=== PATIENT | female | born 1960 | race Caucasian/White ===

== ENCOUNTER 2020-07-25 13:30 | Outpatient (REF) | payer MEDICAID, SELFPAY ==
--- NOTE | 2020-07-25 | MM_ITS ---
EXAMINATION: MM DIAGNOSTIC DIGITAL BREAST TOMOSYNTHESIS, BILATERAL CLINICAL INFORMATION: Right breast calcifications. Screening left breast The lifetime risk of breast cancer based on the Tyrer-Cuzick Model is 4.8%. COMPARISON: Mammography: and studies dating back to 08/05/2012 TECHNIQUE: Digital breast tomosynthesis is performed in both the craniocaudal and mediolateral oblique views along with computer-aided detection (CAD). Synthesized 2D images are generated from the tomosynthesis. Right breast spot magnification films performed in craniocaudal and 90 degree mediolateral views. FINDINGS: There are scattered areas of fibroglandular density (ACR BI-RADS breast composition Category b). There is stable appearance of the left breast with no new suspicious grouping of microcalcifications or abnormal dominant mass. Within the central aspect of the right breast approximately 9 cm from nipple, there has been an increase in calcifications which appear to be in a linear configuration and may lie within a duct. Stereotactic core biopsy is recommended. Results are discussed with the patient at time of visit. MM/MM tomosynthesis diagnostic BI IMPRESSION: Right breast calcifications for which biopsy is recommended. ASSESSMENT: BI-RADS 4: Suspicious RECOMMENDATION: Right breast stereotactic core biopsy. Nurse navigator called patient's provider. This patient's information was entered into a reminder system with a target due date for their next mammogram.
== END 2020-07-25 13:31 | disposition home or self-care (01) ==
LOC: HO.MAMMO 13:30
PROVIDERS: Visit Provider Nurse Practitioner Family
DX: R92.1 Mammographic calcification found on diagnostic imaging of breast (principal); Z00.00 Encounter for general adult medical examination without abnormal findings
CPT/HCPCS: 77062; 77066

== ENCOUNTER → 2020-07-26 15:10 | Outpatient (BNVA) | payer MEDICAID, SELFPAY | PROVIDERS: PCP Internal Medicine; Visit Provider Surgery | DX: R92.8 Other abnormal and inconclusive findings on diagnostic imaging of breast (principal) | CPT/HCPCS: 99202 ==

== ENCOUNTER 2020-07-28 08:02 | Outpatient (REF) | payer MEDICAID, SELFPAY ==
--- NOTE | 2020-07-28 08:07 | MM_ITS ---
EXAMINATION: STEREOTACTIC TOMOSYNTHESIS-GUIDED VACUUM-ASSISTED BREAST BIOPSY, RIGHT SPECIMEN RADIOGRAPH, RIGHT POST PROCEDURE DIGITAL MAMMOGRAM, RIGHT CLINICAL INFORMATION: Indeterminate calcifications in a linear pattern not definitely within a vessel central right breast. COMPARISON: July 25, 2020 and studies dating back to May 18, 2010. TECHNIQUE/PROCEDURE: Informed consent was obtained from the patient after discussion of the benefits, risks, and alternatives to biopsy today. Patient appeared to understand. Gave opportunity for questions. Patient signed consent form. BIOPSY TABLE: LEHR Affirm Prone Biopsy System. LESION: Calcifications. LOCAL ANESTHESIA: 10 mL 1% lidocaine; 20 mL 1% lidocaine with epinephrine. DERMATOTOMY: Single skin andrews dermatotomy performed. NEEDLE: [employer] Eviva 9-gauge vacuum assisted core biopsy device. APPROACH: Superior. TARGETING: Digital breast tomosynthesis used for targeting. CORES: 16. CLIP: [employer] SecurMark T-shaped marker. SPECIMEN RADIOGRAPH: Specimen radiograph is taken in separate room using digital mammography. The index calcifications are in the excised cores. POST PROCEDURE UNILATERAL DIGITAL MAMMOGRAM: The post biopsy mammogram is performed in separate room using separate digital mammography equipment from the biopsy procedure. 2 views obtained. There are scattered areas of fibroglandular density (breast composition category: b). The clip marker is in position. The calcifications are markedly decreased at the biopsy site. Small hematoma. The patient tolerated the procedure well. No immediate complications. Home instructions reviewed with the patient. Final pathology results are pending. MM/MM stereotactic biopsy RT IMPRESSION: 1. Digital tomosynthesis-guided core biopsy right breast with clip placement. 2. Specimen radiograph taken and post procedure mammogram. There is satisfactory positioning of the biopsy clip. 3. Final pathology results pending. An addendum report will be issued.
== END 2020-07-28 08:03 | disposition home or self-care (01) ==
LOC: HO.MAMMO 08:02
PROVIDERS: Visit Provider Surgery
DX: R92.8 Other abnormal and inconclusive findings on diagnostic imaging of breast (principal); R92.1 Mammographic calcification found on diagnostic imaging of breast
CPT/HCPCS: 19081; 88305; A4648

== ENCOUNTER → 2020-08-03 10:28 | Outpatient (BNVA) | payer MEDICAID, SELFPAY | PROVIDERS: PCP Nurse Practitioner Family; Visit Provider Surgery | DX: R92.8 Other abnormal and inconclusive findings on diagnostic imaging of breast (principal) | CPT/HCPCS: 99212 ==

== ENCOUNTER → 2020-10-17 11:31 | Outpatient (BNVA) | payer MEDICAID, SELFPAY | PROVIDERS: PCP Nurse Practitioner Family; Visit Provider Internal Medicine Pulmonary Disease | DX: I42.9 Cardiomyopathy, unspecified (principal); R06.00 Dyspnea, unspecified; I10 Essential (primary) hypertension; E78.5 Hyperlipidemia, unspecified; G47.33 Obstructive sleep apnea (adult) (pediatric) | CPT/HCPCS: 93005; 99202 ==

== ENCOUNTER 2020-11-23 09:58 | Outpatient (REF) | payer MEDICAID, SELFPAY ==
--- NOTE | 2020-11-23 11:21 | PFT_ITS ---
Forced vital capacity and FEV1 are both moderately decreased, but FEV1/FVC ratio is normal. [id number] is markedly decreased. MVV moderately decreased. Post bronchodilator therapy, there is no significant change. Total lung capacity is slightly decreased. Residual volume normal. Diffusion capacity normal. CONCLUSION: [id number] degree of obstructive airway disorder. Minimal restrictive pulmonary disease. No significant response to bronchodilator therapy. MD JAKE Carter/MODL / [id number]
== END 2020-11-23 09:59 | disposition home or self-care (01) ==
LOC: HO.RESP 09:58
PROVIDERS: PCP Nurse Practitioner Family; Visit Provider Internal Medicine Pulmonary Disease
DX: J44.9 Chronic obstructive pulmonary disease, unspecified (principal)
CPT/HCPCS: 94060; 94727; 94729

== ENCOUNTER → 2020-11-23 13:43 | Outpatient (REF) | payer MEDICAID, SELFPAY ==
--- NOTE | 2020-11-23 13:47 | CA_ITS ---
Transthoracic Echocardiogram Patient (Last, First, Middle): Rosalba Palacios, Gender: Female Date of : 1960 Age: 60 Procedure Date: 11/23/2020 Procedure Type: Transthoracic Echocardiogram Location: OP Height: 154.94 cm Weight: 108.86 kg BSA: 2.04 m2 Heart Rate: bpm BP: 140 / 70 mmHg Standpipe Tender: STEPHANIE Lundberg MD: Toby Tan MD Traffic Sergeant: Arun Johnson MD Symptoms: I42.9 - Cardiomyopathy, unspecified Study Quality: Technically Difficult ECG Rhythm: Sinus Conclusions: - 1. Normal LV systolic function with mild LVH with impaired relaxation filling pattern 2. Possibly mild aortic stenosis 3. Normal RV systolic pressure 4. No pericardial effusion Findings Left Ventricle Normal left ventricular size and systolic function. There is mildly increased left ventricular wall thickness. The visually estimated ejection fraction is between 55-60%. Regional wall motion abnormalities can not be excluded due to suboptimal endocardial definition. Spectral Doppler is indicative of an impaired relaxation filling pattern. Right Ventricle The right ventricle was not well visualized. Atria The left atrium is likely dilated. Interatrial shunt cannot be excluded. The right atrium was not well visualized. Aortic Valve The aortic valve was not well visualized. There is mild aortic valve stenosis. The peak aortic gradient is 18 mmHg.The mean gradient is 11 mmHg. The aortic valve area is 1.94 cm2. There is no aortic valve regurgitation. Mitral Valve There is mild anterior and posterior mitral leaflet thickening. There is mild mitral annular calcification. There is trace mitral valve regurgitation. There is no mitral valve stenosis. Tricuspid Valve The tricuspid valve was not well visualized. There is mild tricuspid valve regurgitation. There is no evidence of pulmonary hypertension. Great Vessels All visible segments of the aorta are normal in size. The pulmonary artery was not well visualized. Venous The inferior vena cava is normal in size and collapses greater than 50% with inspiration. Pericardium/Pleural There is no evidence of pericardial effusion. Prior Study Comparison Changes noted compared to prior study dated: 05/05/2019. LV systolic function appears to improve. Calculated aortic valve area and gradient suggestive of mild aortic stenosis Measurements 2D Linear Measurements IVSd: 1.22 0.6-0.9/0.6-1.0 cm LVIDd: 3.73 3.9-5.3/4.2-5.9 cm LVIDd Index: 1.83 2.4-3.2/2.2-3.1 cm/m2 LVIDs: 2.84 2.0-3.6 cm LVPWd: 1.19 0.7-1.1 cm Ao Root: 3.60 2.1-3.5 cm LA Diam: 3.90 2.7-3.8/3.0-4.0 cm LAIDs Index: 1.91 1.5-2.3 cm/m2 LV Mass: 186.76 67-162/88-224 g LV Mass Index: 91.55 43-95/49-115 g/m2 LVOT Diam: 2.00 3.0+(-)1.3 cm 2D Systolic Function EF 4C: 56.40 >55% EF 2C: 58.60 >55% EF BiP: 58.00 >55% Mitral Valve E'Medial: 7.35 Aortic Valve AoV Pk Nithin: 2.11 AoV Mn Nithin: 1.54 AoV VTI: 0.40 AoV Pk Grad: 18.00 Aov Mn Grad: 11.00 DAVID Cont.VTI: 1.94 LVOT LVOT Pk Nithin: 1.47 LVOT Mn Nithin: 0.97 LVOT VTI: 0.25 LVOT Pk Grad: 9.00 LVOT Mn Grad: 5.00 LVOT Diam: 2.00 LVOT Area: 3.14 Diastolic Function E'Medial: 7.35 Tricuspid Valve TR Pk Nithin: 2.89 TR Pk Grad: 33.00 RA Press: 3.00 RVSP: 36.00 Great Vessels Aorta Ao Root-2D: 3.60 2.0-3.7 cm Ao Asc: 3.60 2.1-3.4 cm Ao Arch: 2.90 Updated in Other Vendor System with Status of Final Arun Johnson MD electronically signed on 11/23/2020 5:43:32 PM with status of Final
== END ==
LOC: HO.CARD 13:43
PROVIDERS: Visit Provider Internal Medicine Cardiovascular Disease
DX: I42.9 Cardiomyopathy, unspecified (principal)
CPT/HCPCS: 93306; Q9957

== ENCOUNTER → 2020-11-24 09:58 | Outpatient (BNVA) | payer MEDICAID, SELFPAY | PROVIDERS: PCP Nurse Practitioner Family; Visit Provider Internal Medicine Pulmonary Disease | DX: J44.9 Chronic obstructive pulmonary disease, unspecified (principal); G47.33 Obstructive sleep apnea (adult) (pediatric); R91.8 Other nonspecific abnormal finding of lung field | CPT/HCPCS: 99212 ==

== ENCOUNTER 2021-02-14 13:31 | Outpatient (REF) | payer MEDICAID, SELFPAY | END 2021-02-14 13:32 | disposition home or self-care (01) | LOC: HO.CT 13:31 | PROVIDERS: Visit Provider Internal Medicine Pulmonary Disease | DX: Z13.89 Encounter for screening for other disorder (principal) ==

== ENCOUNTER 2022-08-28 14:15 | Outpatient (REF) | payer MEDICAID, SELFPAY ==
--- NOTE | ~2022-08-28 | MM_ITS ---
EXAMINATION: MM SCREENING DIGITAL BREAST TOMOSYNTHESIS, BILATERAL CLINICAL INFORMATION: Screening. Asymptomatic. Benign right stereotactic biopsy 07/28/2020 (benign breast tissue with fibroadenomatous change and coarse calcifications). The lifetime risk of breast cancer based on the Tyrer-Cuzick Model is 4%. COMPARISON: Mammography: 07/28/2020, 07/25/2020, 04/28/2019, 04/21/2019 TECHNIQUE: Digital breast tomosynthesis is performed in both the craniocaudal and mediolateral oblique views along with computer-aided detection (CAD). Synthesized 2D images are generated from the tomosynthesis. Additional bilateral CC and additional bilateral MLO views are provided. FINDINGS: There are scattered areas of fibroglandular density (ACR BI-RADS breast composition Category b). Parenchymal pattern is similar to prior studies. There is no developing density or architectural abnormality. No abnormal calcifications. There is biopsy clip marker again noted central right breast mid depth. The axilla and skin contours are unremarkable. No significant changes. MM/MM tomosynthesis screening BI IMPRESSION: No mammographic evidence of malignancy. ASSESSMENT: BI-RADS 2: Benign RECOMMENDATION: Routine annual mammography screening. This patient's information was entered into a reminder system with a target due date for their next mammogram.
== END 2022-08-28 14:16 | disposition home or self-care (01) ==
LOC: HO.MAMMO 14:15
PROVIDERS: Visit Provider Nurse Practitioner Primary Care
DX: Z12.31 Encounter for screening mammogram for malignant neoplasm of breast (principal)
CPT/HCPCS: 77063; 77067

== ENCOUNTER → 2022-09-25 13:53 | Outpatient (BNVA) | payer MEDICAID, SELFPAY | PROVIDERS: PCP Nurse Practitioner Primary Care; Referring Provider Nurse Practitioner Primary Care; Visit Provider Nurse Practitioner Family | DX: I42.9 Cardiomyopathy, unspecified (principal); I10 Essential (primary) hypertension; I35.0 Nonrheumatic aortic (valve) stenosis; I44.7 Left bundle-branch block, unspecified; G47.33 Obstructive sleep apnea (adult) (pediatric); Z79.899 Other long term (current) drug therapy | CPT/HCPCS: 93005; 99212 ==

== ENCOUNTER → 2022-10-02 12:11 | Outpatient (REF) | payer MEDICAID, SELFPAY ==
[2022-10-02 13:01] LABS: B Type Natriuretic Peptide 18 pg/mL (<100)
[2022-10-02 13:27] LABS: Alanine Aminotransferase 13 U/L (0-31); Albumin Level 3.9 g/dL (3.5-5.0); Alkaline Phosphatase 83 U/L (39-117); Anion Gap 15 (12-20); Aspartate Amino Transferase 18 U/L (5-31); Bilirubin Total 0.3 mg/dL (0.0-1.0); Blood Urea Nitrogen 12 mg/dL (9-16); Calcium 9.4 mg/dL (8.4-10.2); Carbon Dioxide 31 mmol/L (22-29); Chloride 104 mmol/L (96-108); Cholesterol 180 mg/dL; Estimated Glomerular Filt Rate > 60; Glucose Random 120 mg/dL (60-115); HDL Cholesterol 55 mg/dL; LDL Cholesterol Calculated 106 mg/dl; Potassium 4.6 mmol/L (3.3-5.1); Sodium 145 mmol/L (135-145); Total Protein 6.5 g/dL (6.5-8.0); Triglycerides 99 mg/dL
--- NOTE | 2022-10-02 14:40 | CA_ITS ---
Transthoracic Echocardiogram Patient (Last, First, Middle): Rosalba Palacios, Gender: Female Date of : 1960 Age: 62 Procedure Date: 10/02/2022 Procedure Type: Transthoracic Echocardiogram Location: OP Height: 154.94 cm Weight: 117.94 kg BSA: 2.11 m2 Heart Rate: bpm BP: 144 / 80 mmHg Cable Assembler And Swager: VH Referring MD: Clarisa Rae APPEALS OFFICERCordellC Symptoms: I42.9 - Cardiomyopathy, unspecified Study Quality: Fair ECG Rhythm: Sinus, LBBB Conclusions: - The left ventricular systolic function is normal. The calculated ejection fraction is 58% by biplane method. - There is moderately increased left ventricular wall thickness. - There is mild aortic valve stenosis. Findings Procedure Information Contrast agent, definity, is being given per protocol without apparent complications. Left Ventricle Normal left ventricular cavity size. There is moderately increased left ventricular wall thickness. The left ventricular systolic function is normal. The calculated ejection fraction is 58% by biplane method. There is no evidence of regional wall motion abnormalities. There is paradoxical septal motion consistent with a left bundle branch block. E/E prime ratio is between 8 and 15 consistent with indeterminate filling pressures. Evidence suggests grade I (mild) diastolic dysfunction. Right Ventricle Normal right ventricular cavity size and systolic function. Atria Both atria are normal in size. Aortic Valve The aortic valve was not well visualized. There is mild aortic valve stenosis. The mean gradient is 10 mmHg. The aortic valve area is 1.61 cm2. There is no aortic valve regurgitation. Mitral Valve The mitral valve appears normal. There is no mitral valve regurgitation. There is no mitral valve stenosis. Pulmonic Valve The pulmonic valve is likely normal. Tricuspid Valve Normal tricuspid valve structure. There is mild tricuspid valve regurgitation. Mild pulmonary hypertension is present. Great Vessels The asc aorta is normal in size. Venous The inferior vena cava is mildly dilated and collapses greater than 50% with inspiration. Pericardium/Pleural There is no evidence of pericardial effusion. Prior Study Comparison No significant change compared to prior study dated: 11/23/2020. Measurements 2D Linear Measurements IVSd: 1.73 0.6-0.9/0.6-1.0 cm LVIDd: 4.29 3.9-5.3/4.2-5.9 cm LVIDd Index: 2.03 2.4-3.2/2.2-3.1 cm/m2 LVIDs: 3.21 2.0-3.6 cm LVPWd: 1.47 0.7-1.1 cm Ao Root: 3.50 2.1-3.5 cm LA Diam: 3.80 2.7-3.8/3.0-4.0 cm LAIDs Index: 1.80 1.5-2.3 cm/m2 LV Mass: 354.89 67-162/88-224 g LV Mass Index: 168.19 43-95/49-115 g/m2 LVOT Diam: 2.00 3.0+(-)1.3 cm 2D Systolic Function EF 4C: 57.50 >55% EF 2C: 57.90 >55% EF BiP: 58.30 >55% Mitral Valve MV Pk E: 0.66 MV PK A: 1.30 MV Decel Time: 118.00 E/A: 0.50 E'Lateral: 6.09 E'Medial: 5.11 E/E' Med: 12.90 E/E' Lat: 10.80 PHT: 34.00 MVA PHT: 6.47 Decel Dubois: 5.60 Aortic Valve AoV Pk Nithin: 2.21 AoV Mn Nithin: 1.45 AoV VTI: 0.46 AoV Pk Grad: 20.00 Aov Mn Grad: 10.00 DAVID Cont.VTI: 1.61 LVOT LVOT Pk Nithin: 1.17 LVOT Mn Nithin: 0.84 LVOT VTI: 0.24 LVOT Pk Grad: 5.00 LVOT Mn Grad: 3.00 LVOT Diam: 2.00 LVOT Area: 3.14 Diastolic Function MV Pk E: 0.66 MV Pk A: 1.30 E/A: 0.50 E'Medial: 5.11 E/E' Med: 12.90 E' Laterial: 6.09 E/E' Lat: 10.80 Right Ventricle TAPSE (mm): 33.00 TVS' Nithin: 15.00 Tricuspid Valve TR Pk Nithin: 2.78 TR Pk Grad: 31.00 RA Press: 8.00 RVSP: 39.00 Great Vessels Aorta Ao Root-2D: 3.50 2.0-3.7 cm Ao Asc: 3.70 2.1-3.4 cm Pulmonary Valve PV Pk Nithin: 1.06 Peak PV Grad: 4.00 Updated in Other Vendor System with Status of Final Jarett Dia MD electronically signed on 10/02/2022 4:58:35 PM with status of Final
== END ==
LOC: HO.CARD 12:11
PROVIDERS: PCP Nurse Practitioner Primary Care; Visit Provider Nurse Practitioner Family
DX: I35.0 Nonrheumatic aortic (valve) stenosis (principal); I42.9 Cardiomyopathy, unspecified
CPT/HCPCS: 36415; 80053; 80061; 83880; 93306; Q9957

== ENCOUNTER → 2022-11-28 14:29 | Outpatient (BNVA) | payer MEDICAID, SELFPAY | PROVIDERS: PCP Nurse Practitioner Primary Care; Referring Provider Nurse Practitioner Primary Care; Visit Provider Internal Medicine Cardiovascular Disease | DX: I10 Essential (primary) hypertension (principal); I44.7 Left bundle-branch block, unspecified; I35.0 Nonrheumatic aortic (valve) stenosis; E66.9 Obesity, unspecified; G47.33 Obstructive sleep apnea (adult) (pediatric); Z68.42 Body mass index [BMI] 45.0-49.9, adult; Z99.89 Dependence on other enabling machines and devices | CPT/HCPCS: 99212 ==

== ENCOUNTER 2023-02-08 13:22 | Outpatient (REF) | payer MEDICAID, SELFPAY ==
--- NOTE | ~2023-02-08 | CT_ITS ---
EXAMINATION: CT CHEST SCREENING CLINICAL INFORMATION: Current smoker. 52 pack year history. COMPARISON: Previous CTA of the chest from September 2016 and chest x-ray May 2018 and abdominal [address] from 2013 TECHNIQUE: Multidetector volumetric CT imaging of the chest is performed without contrast using low dose technique. Additional 2D coronal and sagittal reformatted images and axial 3D maximum intensity projection (MIP) images are generated on the CT workstation. This CT examination was performed using dose optimization techniques as appropriate, variously including the following: *Automated exposure control *Adjustment of mA and/or kV according to patient size (this includes techniques or standardized protocols for targeted exams where dose is matched to indication/reason for exam; i.e. extremities or head) *Use of iterative reconstruction technique DLP: 77 mGy-cm FINDINGS: LUNGS: There is a slightly irregular shaped or spiculated right upper lobe nodule. This abuts the mediastinum. This measures 1.6 x 1.9 cm axial image 95. The lungs are otherwise clear. MEDIASTINUM: 2 cm left thyroid nodule. Slightly enlarged heart. No pericardial effusion. No enlarged hilar or mediastinal lymph nodes. CORONARY ARTERY CALCIFICATION: Mild PLEURA: There is no pleural effusion. No pleural mass or thickening. AXILLA: No lymphadenopathy. UPPER ABDOMEN: Fullness of the left adrenal gland. This is similar to prior exams OSSEOUS STRUCTURES: Degenerative changes of the spine. CT/CT lung screening IMPRESSION: 1.6 x 1.9 cm spiculated right upper lobe nodule suspicious for neoplasm. 2 cm left thyroid nodule. Follow-up thyroid ultrasound recommended. Slightly enlarged heart. ASSESSMENT: Lung-RADS category 4X: Suspicious RECOMMENDATION: PET/CT scan or tissue sampling recommended. Findings will be communicated by the [place] work flow licensed chemical spray technician.
== END 2023-02-08 13:23 | disposition home or self-care (01) ==
LOC: HO.CT 13:22
PROVIDERS: PCP Nurse Practitioner Primary Care; Visit Provider Physician Assistant Medical
DX: Z12.2 Encounter for screening for malignant neoplasm of respiratory organs (principal); F17.210 Nicotine dependence, cigarettes, uncomplicated
CPT/HCPCS: 71271; G0296

== ENCOUNTER 2023-03-01 09:20 | Outpatient (AMB) | payer MEDICAID, SELFPAY ==
--- NOTE | 2023-03-01 09:39 | A.OFFVIS_ITS ---
Intake Vital Signs 03/01/23 10:05 Height 5 ft 1 in Weight 240 lb BMI 45.3 BP 140/80 H Pulse 73 Pulse Oximetry (%) 100 Intake Visit Reasons: Rad 4 Allergies No Known Allergies Allergy (Verified 03/01/23 10:06) Medication List - Last Reconciled 03/01/23 by Danilo Hawk MD albuterol sulfate 90 mcg/actuation (Ventolin HFA) 2 puffs inhalation QID albuterol sulfate mg inhalation Q6H PRN amitriptyline 25 mg PO BEDTIME aspirin (Adult Low Dose Aspirin) 81 mg PO DAILY buprenorphine-naloxone 2-0.5 mg (Suboxone) 3 film buccal DAILY bupropion HCl 300 mg PO QAM cholecalciferol (vitamin D3) 25 mcg PO DAILY divalproex (Depakote) 1,000 mg PO ONCE docusate sodium (Colace) 100 mg PO BID PRN furosemide 40 mg PO DAILY 90 days lisinopril 40 mg PO DAILY loratadine (Allergy Relief (loratadine)) 10 mg PO DAILY montelukast (Singulair) 10 mg PO DAILY naloxone 4 mg/actuation (Narcan) 4 mg intranasal Q3M PRN olanzapine 15 mg PO DAILY pantoprazole 40 mg PO DAILY polyethylene glycol 3350 (Miralax) 17 grams PO DAILY prazosin 4 mg PO BEDTIME sennosides (Senokot) 8.6 mg PO DAILY simvastatin 80 mg PO DAILY umeclidinium-vilanterol 62.5-25 mcg/actuation (Anoro Ellipta) 1 ea inhalation DAILY 30 days varicella-zoster gE-AS01B (PF) 50 mcg/0.5 mL (Shingrix (PF)) IM HPI Rad 4 HPI Details 62-year-old woman smoker part of the lung cancer screening program here at [facility] had her baseline low-dose CT scan of the chest done on 02/08/2023. This was reviewed interpreted by me directly. This CT scan shows a 1.6 x 1.9 cm spiculated right upper lobe pulmonary nodule medially at the apex. Looking back within the system she did have a CT angiogram of the chest in 2017 which does show this nodule but about 1/3 of the size as it currently is. There is also a 2 cm thyroid nodule for which ultrasound was recommended. She did have pulmonary function testing and 11/23/2020 but I cannot few that for some reason. She had an EKG done on 09/25/2022 which shows normal sinus rhythm and a left bundle branch block same as 1 done in 2020. Echocardiogram was done on 10/02/2022 which shows an ejection fraction of 58% and very mild aortic stenosis with mild thickening of the LV. She is obese but denies fevers chills or unintentional weight loss. She denies chest pain cough or hemoptysis. She does report shortness of breath with activity. She can go up a flight of stairs without stopping but has to stop at the top. Other than above, 12 point review of systems was done and documented separately in the office chart with detailed social and family history. REPLACED BY [facility] Medical History Hepatitis C Morbid obesity Nicotine dependence, cigarettes, uncomplicated COURTNEY (obstructive sleep apnea) Substance abuse Varicose veins of both lower extremities Surgical History History of cardiac cath History of delivery History of colonoscopy History of esophagogastroduodenoscopy (EGD) History of right breast biopsy History of tubal ligation Family History Mother History of lung cancer Brother History of lung cancer Social History Alcohol intake: current Alcohol intake frequency: holidays/special occasions only Patient Tobacco Use Status: Current everyday Tobacco user Cigarettes Per Day: 4 Years Smoked: (onset 12yo, x 50yrs, max 3ppd, mostly 1ppd, now 1/4ppd - 50phy) Substance Use Type: Marijuana Physical Exam General: No acute distress HEENT: Moist mucous membranes, normocephalic, pupils equal round and reactive to light. Neck: No thyromegaly, supple, no JVD Lymph: No cervical, supraclavicular, or other lymphadenopathy Chest: No chest wall abnormalities or deformities Heart: Regular rate and rhythm Lungs: Clear to auscultation bilaterally Abdomen: Soft, nontender, normal bowel sounds obese Extremities: No edema, cyanosis, or clubbing. Full range of motion Neuro: Grossly intact, alert and oriented x3, and nonfocal Skin: Warm and dry no rashes Affect: Normal Assessment & Plan Assessment & Plan (1) Right upper lobe pulmonary nodule: Comment: (1.6 x 1.9 cm spiculated RUL nodule on 02/08/23 LDCT) Code(s): R91.1 - Solitary pulmonary nodule Plan: 62-year-old current smoker found to have a suspicious pulmonary nodule that is enlarging in the apex medially of the right upper lobe. I explained her that this is a clinical stage I lung cancer until proven otherwise. I discussed pulmonary nodules in general and how either size, shape, and spinning frame changer time affect her level of suspicion for malignancy. We did discuss the CT scan in detail and with that all means. We discussed the diagnosis, staging, and treatment of lung cancer which he seemed understand. Options for her are at this point needle biopsy versus surgical wedge resection possible lobectomy. After discussing the risks and benefits of each of these options she opted for surgery and will plan on arranging this to happen probably in the month of March. We will get cardiology clearance prior operation and pulmonary function testing is scheduled for 03/07/2023. All questions were answered. (2) Nicotine dependence, cigarettes, uncomplicated: Comment: (current smoker, onset 12yo, x 50yrs, max 3ppd, mostly 1ppd, now 1/4ppd - 50pyh) Code(s): F17.210 - Nicotine dependence, cigarettes, uncomplicated Plan: We spent 5 minutes discussing smoking cessation and she tells me she has been able to cut down from 3 packs per day all the way down to less than half a pack per day. We discussed using lozenges or the gum when she does have the urge for cigarette and try to stop completely prior to her operation. Specifically, we discussed the benefits around surgery with smoking cessation including decreased risk of pneumonia or wound infection. Coding Level of Care Code New Pt Level 5 (73903) Diagnoses Right upper lobe pulmonary nodule R91.1 Nicotine dependence, cigarettes, uncomplicated F17.210 Time Spent (min) 65 Comment Smoking cessation 5 minutes please bill.
[2023-03-01 10:05] VITALS: BP 140/80; PULSE 73; O2SAT 100; BMI 45.3
== END 2023-03-01 10:04 | disposition home or self-care (01) ==
PROVIDERS: PCP Nurse Practitioner Primary Care; Visit Provider Surgery
DX: R91.1 Solitary pulmonary nodule (principal); F17.210 Nicotine dependence, cigarettes, uncomplicated

== ENCOUNTER → 2023-03-01 09:20 | Outpatient (BNVA) | payer MEDICAID, SELFPAY | PROVIDERS: PCP Nurse Practitioner Primary Care; Visit Provider Surgery | DX: R91.1 Solitary pulmonary nodule (principal); F17.210 Nicotine dependence, cigarettes, uncomplicated | CPT/HCPCS: 99202 ==

== ENCOUNTER 2023-03-07 09:05 | Outpatient (REF) | payer MEDICAID, SELFPAY ==
--- NOTE | 2023-03-07 10:10 | PFT_ITS ---
FLOWS: 1. FEV1 75% of predicted at 1.63 L. 2. FVC 69% of predicted at 1.92 L. 3. FEV1 to FVC ratio of 0.85. 4. Positive bronchodilator response. LUNG VOLUMES: 1. Total lung capacity 63% of predicted at 2.94 L. 2. Residual volume 56% of predicted at 1.09 L. 3. Slow vital capacity 68% of predicted at 1.85 L. 4. Expiratory reserve volume 87% of predicted at 0.59 L. 5. Diffusion capacity is normal. IMPRESSION: Moderate restrictive ventilatory defect with positive bronchodilator response. Jesse Bush MD AP/MODL / [id number]
== END 2023-03-07 09:06 | disposition home or self-care (01) ==
LOC: HO.RESP 09:05
PROVIDERS: PCP Nurse Practitioner Primary Care; Visit Provider Surgery
DX: R91.1 Solitary pulmonary nodule (principal)
CPT/HCPCS: 94010; 94727; 94729

== ENCOUNTER → 2023-03-07 10:10 | Outpatient (BNV) | payer MEDICAID, SELFPAY | PROVIDERS: PCP Nurse Practitioner Primary Care; Visit Provider Internal Medicine Pulmonary Disease | DX: R91.8 Other nonspecific abnormal finding of lung field (principal) | CPT/HCPCS: 94060; 94727; 94729 ==

== ENCOUNTER 2023-03-25 08:15 | Outpatient (AMB) | payer MEDICAID, SELFPAY ==
--- NOTE | 2023-03-25 08:48 | A.OFFVIS_ITS ---
Intake Vital Signs 03/25/23 08:49 Height 5 ft 1 in Weight 244 lb 11.41 oz BMI 46.2 BP 138/80 Blood Pressure Location Lt brachial Position Sitting Pulse 81 Intake Visit Reasons: PREOP DR FALL Intake Note: preop DR fall Children'S Lunchroom Supervisor Required: Yes Children'S Lunchroom Supervisor Name: carolyn stauffer [id number] Allergies No Known Allergies Allergy (Verified 03/25/23 09:00) Medication List - Last Reconciled 03/25/23 by LEO Ruiz albuterol sulfate 90 mcg/actuation (Ventolin HFA) 2 puffs inhalation QID albuterol sulfate mg inhalation Q6H PRN amitriptyline 25 mg PO BEDTIME aspirin (Adult Low Dose Aspirin) 81 mg PO DAILY buprenorphine-naloxone 2-0.5 mg (Suboxone) 3 film buccal DAILY buprenorphine-naloxone 8-2 mg (Suboxone) 10 mg sublingual QAM bupropion HCl 300 mg PO QAM cholecalciferol (vitamin D3) 25 mcg PO DAILY divalproex (Depakote) 1,000 mg PO ONCE divalproex ER 1,000 mg PO BEDTIME docusate sodium (Colace) 100 mg PO BID PRN furosemide 40 mg PO DAILY 90 days lisinopril 40 mg PO DAILY loratadine (Allergy Relief (loratadine)) 10 mg PO DAILY melatonin 1 mg PO BEDTIME PRN montelukast (Singulair) 10 mg PO DAILY naloxone 4 mg/actuation (Narcan) 4 mg intranasal Q3M PRN olanzapine 15 mg PO DAILY olanzapine 10 mg PO BEDTIME pantoprazole 40 mg PO DAILY polyethylene glycol 3350 (Miralax) 17 grams PO DAILY prazosin 4 mg PO BEDTIME sennosides (Senokot) 8.6 mg PO DAILY simvastatin 80 mg PO DAILY umeclidinium-vilanterol 62.5-25 mcg/actuation (Anoro Ellipta) 1 ea inhalation DAILY 30 days varicella-zoster gE-AS01B (PF) 50 mcg/0.5 mL (Shingrix (PF)) IM HPI PREOP DR FALL HPI Details Rosalba is a 63-year-old female with past medical history of hypertension, left bundle branch block, prior cardiomyopathy, obstructive sleep apnea who presents for preop clearance for thoracic surgery. Today she reports that she does get pressure across her chest that occurs seemingly randomly. She is vague in description even with the use of a staff interpreter. She will admit to getting the pressure and shortness of breath when she climbs stairs. No concerning heart palpitations, dizziness, presyncope, syncope, PND, orthopnea or edema. Reports much anxiety over the plan for upcoming surgery. Unknown surgery date as of yet, pending cardiac clearance. Takes her meds as directed. [facility] Medical History Hepatitis C Morbid obesity Nicotine dependence, cigarettes, uncomplicated COURTNEY (obstructive sleep apnea) Substance abuse Varicose veins of both lower extremities Surgical History History of cardiac cath History of delivery History of colonoscopy History of esophagogastroduodenoscopy (EGD) History of right breast biopsy History of tubal ligation Family History Mother History of lung cancer Brother History of lung cancer Social History Alcohol intake: current Alcohol intake frequency: holidays/special occasions only Patient Tobacco Use Status: Current everyday Tobacco user Cigarettes Per Day: 4 Years Smoked: (onset 12yo, x 50yrs, max 3ppd, mostly 1ppd, now 1/4ppd - 50phy) Substance Use Type: Marijuana Review of Systems Const All systems reviewed & are unremarkable except as noted in HPI and below ENT Denies dizziness Card Reports chest pain, Denies chest pain at rest, Reports chest pain with activity, Denies rapid heart rate, Denies pedal edema, Denies edema, Denies leg edema, Denies lightheadedness, Denies palpitations, Denies dyspnea, Reports dyspnea on exertion and Denies orthopnea Resp Denies cough, Denies dyspnea and Reports dyspnea on exertion GI Denies hematochezia and Denies change in stool character Musc Denies abnormal gait, Reports limited range of motion, Reports muscle cramps, Denies muscle weakness, Denies numbness, Denies radiating pain into limb, Denies stiffness and Denies tingling Neuro Denies abnormal gait, Denies dizziness, Denies numbness and Denies tingling Endo Denies palpitations Physical Exam Vital Signs: Last Vital Signs Pulse 81 03/25/23 08:49 BP 138/80 03/25/23 08:49 BMI result Body Mass Index 46.2 Const General: cooperative, healthy appearing, comfortable and no acute distress Orientation/consciousness: patient oriented x3 Neck Neck: Yes normal visual inspection Resp Effort & Inspection: normal respiratory effort Auscultation: clear to auscultation bilaterally, no crackles, no rales, no rhonchi and no wheezes Cardio Jugular venous distension: no JVD Rate: regular rate Rhythm: regular rhythm Heart sounds: S1 normal heart sound present, S2 normal heart sound present, no gallops, no murmurs and no rubs Neuro General: patient oriented x3 Extrem General: Yes normal to inspection Psych Appearance: grossly normal Mental Status: mental status grossly normal Speech and movement: Normal speech and movement present Office Procedures EKG Details: Today, read by me, sinus rhythm with 1 PVC, left axis deviation, left bundle branch block, no significant change from prior [id number], Complete Assessment & Plan Assessment & Plan (1) Chest discomfort: Code(s): R07.89 - Other chest pain Plan: Patient does report some chest discomfort described as pressure occurring randomly at rest and with activity. Even with staff interpreter, difficult to get full understanding of this symptom. Echocardiogram done 10/02/2022 showed EF 58%, moderate increase in LV thickness. EKG done today showing sinus rhythm with 1 PVC, left bundle branch block, rate 81, nondiagnostic for ischemia. She has no known history of coronary artery disease. She does have cardiac risk factors of morbid obesity, hypertension, smoking. She is able to climb stairs but says she does get short of breath. Unclear if she can obtain a 4 met workload. She is having chest pressure and has nondiagnostic EKG for ischemia. Will order a pharmacological nuclear stress test to be done this week in order for better cardiovascular risk determination prior to her thoracic surgery. Plan to call her with results. Cardiology office visit in 3-4 months. (2) Left bundle branch block: Code(s): I44.7 - Left bundle-branch block, unspecified Plan: Chronic (3) Essential hypertension: Code(s): I10 - Essential (primary) hypertension Plan: Well controlled at present. No med changes made. (4) Dyspnea on exertion: Code(s): R06.00 - Dyspnea, unspecified Plan: Shortness of breath with activity which could be multifactorial in nature. She is morbidly obese and admits to being sedentary at times. Nuclear stress test to evaluate for ischemia as above. (5) Morbid obesity: Code(s): E66.01 - Morbid (severe) obesity due to excess calories (6) Preop cardiovascular exam: Code(s): Z01.810 - Encounter for preprocedural cardiovascular examination Plan: Preop for thoracic surgery due to suspicious pulmonary nodule in the apex of the right upper lobe. Nuclear stress test has been ordered. Once test results are available preop clearance will be completed. Orders: Orders CA lexiscan stress w gabe Today I42.9 - Cardiomyopathy, unspecified, I44.7 - Left bundle-branch block, unspecified, R07.89 - Other chest pain NM cardiolite stress test Today I42.9 - Cardiomyopathy, unspecified, I44.7 - Left bundle-branch block, unspecified, R07.89 - Other chest pain Coding Level of Care Code Est Pt Level 4 (19695) Diagnoses Chest discomfort R07.89 Left bundle branch block I44.7 Essential hypertension I10 Dyspnea on exertion R06.00 Morbid obesity E66.01 Preop cardiovascular exam Z01.810 CPT Codes EKG - CPT: 46267-[id number], Complete ([id number]) Time Spent (min) 28 Comment Chart review, documentation, interview, assess
[2023-03-25 08:49] VITALS: BP 138/80; PULSE 81; BMI 46.2
== END 2023-03-25 09:25 | disposition home or self-care (01) ==
PROVIDERS: PCP Nurse Practitioner Primary Care; Referring Provider Nurse Practitioner Primary Care; Visit Provider Nurse Practitioner Family
DX: R07.89 Other chest pain (principal); I44.7 Left bundle-branch block, unspecified; I10 Essential (primary) hypertension; R06.00 Dyspnea, unspecified; E66.01 Morbid (severe) obesity due to excess calories; Z01.810 Encounter for preprocedural cardiovascular examination
CPT/HCPCS: 93010; 99214

== ENCOUNTER → 2023-03-25 08:15 | Outpatient (BNVA) | payer MEDICAID, SELFPAY | PROVIDERS: PCP Nurse Practitioner Primary Care; Referring Provider Nurse Practitioner Primary Care; Visit Provider Nurse Practitioner Family | DX: Z01.811 Encounter for preprocedural respiratory examination (principal); R07.89 Other chest pain; R06.00 Dyspnea, unspecified; I44.7 Left bundle-branch block, unspecified; I42.9 Cardiomyopathy, unspecified; I49.1 Atrial premature depolarization; I10 Essential (primary) hypertension; G47.33 Obstructive sleep apnea (adult) (pediatric); E66.01 Morbid (severe) obesity due to excess calories; Z68.42 Body mass index [BMI] 45.0-49.9, adult; Z98.890 Other specified postprocedural states; Z72.0 Tobacco use | CPT/HCPCS: 93005; 99214 ==

== ENCOUNTER → 2023-03-28 08:31 | Outpatient (REF) | payer MEDICAID, SELFPAY ==
--- NOTE | ~2023-03-28 | NM_ITS ---
Myocardial perfusion study Indication: Chest pain to evaluate for myocardial ischemia Technique: The patient was brought in for a Lexiscan perfusion study on 03/28/2023. Patient performed low-level exercise and was injected 0.4 mg of Lexiscan intravenously. Within a minute of injection, 40 mCi of sestamibi was given intravenously. Images were obtained using the SPECT gamma camera interlaced with the gating device. Images were obtained in supine position. Resting perfusion study was performed on 03/29/2023. Patient was administered 40 mCi of sestamibi intravenously at rest. Images were then obtained in supine position. Images obtained with and without CT attenuation. Total DLP 201 mGy-cm. Images were processed with the software and compared side to side in short axis, horizontal long axis and vertical long axis views. Findings: The stress perfusion study showed non attenuated images show mildly reduced uptake in the distal anterior and apical wall of the LV myocardium as well as mildly to moderately reduced uptake in the distal septum. Remainder of the LV myocardium is normally perfused. Attenuated corrected images show mildly reduced uptake in the distal anterior as well as apex of the LV myocardium and moderate to severely reduced uptake in the distal septum. The gated study shows mildly reduced LV systolic function with calculated LVEF of 45%. LV cavity is normal in size. The gated study shows normal systolic wall thickening and contraction of segments. Resting study shows both attenuated as well as non attenuated corrected images show improved uptake in the distal anterior and apical wall of the LV myocardium. The septal uptake is unchanged.. Gating at rest reveals no significant wall motion with ejection fraction at 49%. The findings are consistent with equivocal findings mildly reversible defect in the distal anterior and apical wall which would suggest ischemia in the mid to distal LAD territory with fixed defect in the distal septal region which could represent prior infarct. However this findings could be seen in patient with left bundle branch block. NM/NM cardiolite stress test Impression: 1. Myocardial perfusion imaging study shows [anterior and apical ischemia with fixed distal septal defect could represent prior myocardial infarction. These findings could be seen in patients with left bundle branch block 2. Gated LVEF is 45% 3. Transient ischemic dilatation not present EKG is nondiagnostic for ischemia
--- NOTE | 2023-03-28 08:34 | CA_ITS ---
Acquisition Time: 2023-03-28 09:04:25 Total Exercise Time: 00:02:00 Test Indications: CHEST PAIN Medications: Protocol: LEXISCAN Max HR: 089 BPM 57% of Pred: 156 BPM Max BP: 128/080 mmHG Max Work Load: 1.0 METS Pharmacolgoical stress test with Lexiscan injection wihile sitting and not kicking her legs, withoiut anginal symptoms, without arrhytmias, with normotensive response to injection, with non-diagoistic EKGs. Nuclear images pending. Test reviewed with Dr. Tan. Referred By: Clarisa Rae Overread By: Sabrina Boone
== END ==
LOC: HO.CARD 08:31
PROVIDERS: PCP Student in an Organized Health Care Education/Training Program; Referring Provider Physician Assistant; Visit Provider Internal Medicine Medical Oncology
DX: R07.89 Other chest pain (principal); I44.7 Left bundle-branch block, unspecified; I42.9 Cardiomyopathy, unspecified
CPT/HCPCS: 78452; 93017; A9500; J0280; J2785

== ENCOUNTER → 2023-03-28 08:34 | Outpatient (BNV) | payer MEDICAID, SELFPAY | PROVIDERS: PCP Nurse Practitioner Primary Care; Visit Provider Nurse Practitioner | DX: R07.9 Chest pain, unspecified (principal) | CPT/HCPCS: 78452; 93016; 93018 ==

== ENCOUNTER 2023-04-09 12:56 | Outpatient (AMB) | payer MEDICAID, SELFPAY ==
[2023-04-09 13:28] VITALS: BP 140/90; PULSE 84; BMI 43.7
--- NOTE | 2023-04-09 13:28 | A.OFFVIS_ITS ---
Intake Vital Signs 04/09/23 13:28 Height 5 ft 1 in Weight 231 lb 7.766 oz BMI 43.7 BP 140/90 H Blood Pressure Location Lt brachial Position Sitting Pulse 84 Pulse Source Pulse Oximeter Intake Visit Reasons: 4 mth f/u per KM Intake Note: 4 month f/u Light Armored Reconnaissance Officer Required: Yes Light Armored Reconnaissance Officer Name: carolyn orlando [id number] Allergies No Known Allergies Allergy (Verified 04/09/23 13:36) Medication List - Last Reconciled 04/09/23 by LEO Ruiz albuterol sulfate 90 mcg/actuation (Ventolin HFA) 2 puffs inhalation QID albuterol sulfate mg inhalation Q6H PRN amitriptyline 25 mg PO BEDTIME aspirin (Adult Low Dose Aspirin) 81 mg PO DAILY buprenorphine-naloxone 2-0.5 mg (Suboxone) 3 film buccal DAILY buprenorphine-naloxone 8-2 mg (Suboxone) 10 mg sublingual QAM bupropion HCl 300 mg PO QAM cholecalciferol (vitamin D3) 25 mcg PO DAILY divalproex (Depakote) 1,000 mg PO ONCE divalproex ER 1,000 mg PO BEDTIME docusate sodium (Colace) 100 mg PO BID PRN furosemide 40 mg PO DAILY 90 days lisinopril 40 mg PO DAILY loratadine (Allergy Relief (loratadine)) 10 mg PO DAILY melatonin 1 mg PO BEDTIME PRN montelukast (Singulair) 10 mg PO DAILY naloxone 4 mg/actuation (Narcan) 4 mg intranasal Q3M PRN olanzapine 15 mg PO DAILY olanzapine 10 mg PO BEDTIME pantoprazole 40 mg PO DAILY polyethylene glycol 3350 (Miralax) 17 grams PO DAILY prazosin 4 mg PO BEDTIME sennosides (Senokot) 8.6 mg PO DAILY simvastatin 80 mg PO DAILY umeclidinium-vilanterol 62.5-25 mcg/actuation (Anoro Ellipta) 1 ea inhalation DAILY 30 days varicella-zoster gE-AS01B (PF) 50 mcg/0.5 mL (Shingrix (PF)) IM HPI 4 mth f/u per KM HPI Details Rosalba is a 63-year-old female with past medical history of morbidly obese, hypertension, left bundle branch block, prior cardiomyopathy, obstructive sleep apnea who presents for follow-up after recent nuclear stress test. Today she reports that she has been doing well since her last visit. She continues to get some mild pressure in her chest which is vaguely described even with the use of manager mutual fund. She denies getting chest pains or pressure with normal ADLs. She will get some mild shortness of breath and pressure with stair climbing. She reports recent anxiety due to upcoming surgery and has noted some palpitation. She was given a medicine for anxiety from her PCP. No palpitations, presyncope, syncope, PND, orthopnea or edema. No routine exercise. Takes all meds as directed. [facility] Medical History Hepatitis C Morbid obesity Nicotine dependence, cigarettes, uncomplicated COURTNEY (obstructive sleep apnea) Substance abuse Varicose veins of both lower extremities Surgical History History of cardiac cath History of delivery History of colonoscopy History of esophagogastroduodenoscopy (EGD) History of right breast biopsy History of tubal ligation Family History Mother History of lung cancer Brother History of lung cancer Social History Alcohol intake: current Alcohol intake frequency: holidays/special occasions only Patient Tobacco Use Status: Current everyday Tobacco user Cigarettes Per Day: 4 Years Smoked: (onset 12yo, x 50yrs, max 3ppd, mostly 1ppd, now 1/4ppd - 50phy) Substance Use Type: Marijuana Review of Systems Const All systems reviewed & are unremarkable except as noted in HPI and below ENT Denies dizziness Card Reports chest pain, Denies chest pain at rest, Denies chest pain with activity, Denies rapid heart rate, Denies pedal edema, Denies edema, Denies leg edema, Denies lightheadedness, Denies palpitations, Denies dyspnea, Reports dyspnea on exertion and Denies orthopnea Resp Denies cough, Denies dyspnea and Reports dyspnea on exertion GI Denies hematochezia and Denies change in stool character Musc Denies abnormal gait, Reports limited range of motion, Reports muscle cramps, Denies muscle weakness, Denies numbness, Denies radiating pain into limb, Denies stiffness and Denies tingling Neuro Denies abnormal gait, Denies dizziness, Denies numbness and Denies tingling Endo Denies palpitations Physical Exam Vital Signs: Last Vital Signs Pulse 84 04/09/23 13:28 BP 140/90 H 04/09/23 13:28 BMI result Body Mass Index 43.7 Const General: cooperative, healthy appearing, comfortable and no acute distress Orientation/consciousness: patient oriented x3 Neck Neck: Yes normal visual inspection Resp Effort & Inspection: normal respiratory effort Auscultation: clear to auscultation bilaterally, no crackles, no rales, no rhonchi and no wheezes Cardio Jugular venous distension: no JVD Rate: regular rate Rhythm: regular rhythm Heart sounds: S1 normal heart sound present, S2 normal heart sound present, Murmur heart sound present (Faint systolic) and no rubs Neuro General: patient oriented x3 Extrem General: Yes normal to inspection, No no pedal edema and No calf tenderness Psych Appearance: grossly normal Mental Status: mental status grossly normal Speech and movement: Normal speech and movement present Assessment & Plan Assessment & Plan (1) Chest discomfort: Code(s): R07.89 - Other chest pain Plan: Preop for thoracic surgery. Recent reports of chest pressure occurring randomly at rest and with activity. Even with manager mutual fund, difficult to get full understanding of this symptom. Echocardiogram done 10/02/2022 showed EF 58%, moderate increase in LV thickness, mild aortic stenosis. EKG done on 03/25/2023 showing sinus rhythm with 1 PVC, left bundle branch block, rate 81, nondiagnostic for ischemia. She has history of left bundle branch block, no known history of coronary artery disease or prior SC. She does have cardiac risk factors of morbid obesity, hypertension, smoking. Pharmacological nuclear stress test done on 03/28/2023 showing anterior rate and apical ischemia with fixed septal defect which could represent prior SC, these findings could also be seen in patients with left bundle branch block, EF 45%. She is on aspirin 81 mg daily, simvastatin 80 mg daily. [place] LDL goal less than 70. Continue medical management with cardiac risk factor modification. Has been cleared to proceed with planned thoracic surgery. All the above reviewed with patient and she states understanding. Will obtain limited echo prior to her next visit to reassess EF, wall motion. Cardiology OV in 6 mo, sooner if needed (2) Left bundle branch block: Code(s): I44.7 - Left bundle-branch block, unspecified Plan: Chronic (3) Essential hypertension: Code(s): I10 - Essential (primary) hypertension Plan: Initially elevated, improved on recheck at 132/82. Max blood pressure at time of stress test 128/80. Will continue on current lisinopril. If alternate agent is needed for blood pressure control then consider beta-tabby. She has had reduced EF in the past (4) Dyspnea on exertion: Code(s): R06.00 - Dyspnea, unspecified Plan: Shortness of breath with activity which could be multifactorial in nature. She is morbidly obese and admits to being sedentary at times. Cardiac testing as above. No clinical signs of heart failure on examination (5) Morbid obesity: Code(s): E66.01 - Morbid (severe) obesity due to excess calories (6) Preop cardiovascular exam: Code(s): Z01.810 - Encounter for preprocedural cardiovascular examination Plan: Preop for thoracic surgery due to suspicious pulmonary nodule in the apex of the right upper lobe. Can proceed with intermediate cardiac risk. Aspirin can be held as needed and restarted postprocedure when cleared by surgeon to do so. Call/consult Cardiology if needed. Orders: Orders CA echo transthoracic complete 6 Months I10 - Essential (primary) hypertension, I35.0 - Nonrheumatic aortic (valve) stenosis, I42.9 - Cardiomyopathy, unspecified, I44.7 - Left bundle-branch block, unspecified Coding Level of Care Code Est Pt Level 3 (40857) Diagnoses Chest discomfort R07.89 Left bundle branch block I44.7 Essential hypertension I10 Dyspnea on exertion R06.00 Morbid obesity E66.01 Preop cardiovascular exam Z01.810 Time Spent (min) 26 Comment Chart review, documentation, interview, assess
== END 2023-04-09 13:59 | disposition home or self-care (01) ==
PROVIDERS: PCP Nurse Practitioner Primary Care; Referring Provider Nurse Practitioner Primary Care; Visit Provider Nurse Practitioner Family
DX: R07.89 Other chest pain (principal); I44.7 Left bundle-branch block, unspecified; I10 Essential (primary) hypertension; R06.00 Dyspnea, unspecified; E66.01 Morbid (severe) obesity due to excess calories; Z01.810 Encounter for preprocedural cardiovascular examination
CPT/HCPCS: 99213

== ENCOUNTER → 2023-04-09 12:56 | Outpatient (BNVA) | payer MEDICAID, SELFPAY | PROVIDERS: PCP Nurse Practitioner Primary Care; Referring Provider Nurse Practitioner Primary Care; Visit Provider Nurse Practitioner Family | DX: Z01.810 Encounter for preprocedural cardiovascular examination (principal); I44.7 Left bundle-branch block, unspecified; I10 Essential (primary) hypertension; R06.00 Dyspnea, unspecified; R07.89 Other chest pain; E66.01 Morbid (severe) obesity due to excess calories; Z68.41 Body mass index [BMI] 40.0-44.9, adult | CPT/HCPCS: 99213 ==

== ENCOUNTER → 2023-06-07 08:48 | Outpatient (BNV) | payer MEDICAID, SELFPAY | PROVIDERS: Visit Provider Internal Medicine Medical Oncology | DX: C34.90 Malignant neoplasm of unspecified part of unspecified bronchus or lung (principal) | CPT/HCPCS: 99204; 99213; 99214 ==

== ENCOUNTER 2023-09-16 13:27 | Outpatient (AMB) | payer MEDICAID, SELFPAY ==
--- NOTE | 2023-09-16 13:33 | MHC.OFFVIS ---
Intake Vital Signs 09/16/23 13:38 Height 5 ft 1 in Weight 259 lb BMI 48.9 BP 155/75 H Blood Pressure Location Rt brachial Position Sitting Pulse 102 H Intake Visit Reasons: Lung CA ? port Intake Note: Patient referred by Dr. Seaman for port placement. Undergoing chemo treatment for Lung CA. Patient c/o: feels uncertain about port at this time since chemo txt is completed. Halftone Operator Required: No Accompanied by: Self / Same As Patient Allergies No Known Allergies Allergy (Verified 09/16/23 13:40) HPI HPI Comments History of Present Illness Details Patient is status post right upper lobectomy in April of 2023 for an early stage non-small cell lung cancer. She presents here for further cancer surveillance/follow-up. She was also seen by Oncology for which she underwent chemotherapy for early stage lung cancer. Patient has no new respiratory issues or complaints. She is otherwise doing well [facility] Medical History Hepatitis C Morbid obesity Nicotine dependence, cigarettes, uncomplicated COURTNEY (obstructive sleep apnea) Substance abuse Varicose veins of both lower extremities Surgical History History of cardiac cath History of delivery History of colonoscopy History of esophagogastroduodenoscopy (EGD) History of right breast biopsy History of tubal ligation Family History Mother History of lung cancer Brother History of lung cancer Social History Household Members: Family Alcohol intake: current Alcohol intake frequency: holidays/special occasions only Patient Tobacco Use Status: Current everyday Tobacco user Years Smoked: (onset 12yo, x 50yrs, max 3ppd, mostly 1ppd, now 1/4ppd - 50phy) Substance Use Type: Marijuana service: No Current occupational status: retired Physical Exam Vital Signs: Last Vital Signs Pulse 102 H 09/16/23 13:38 BP 155/75 H 09/16/23 13:38 BMI result Body Mass Index 48.9 Neck Other: No cervical periclavicular adenopathy bilaterally demonstrated. Chest Other: Incisions clean dry and intact. Healed well. Assessment & Plan Assessment & Plan (1) History of lung cancer: Code(s): Z85.118 - Personal history of other malignant neoplasm of bronchus and lung Plan Patient is scheduled per Oncology for follow-up surveillance CT scan. She will see me after the study. All questions answered. Coding Level of Care Code New Pt Level 4 (35236) Diagnoses History of lung cancer Z85.118
[2023-09-16 13:38] VITALS: BP 155/75; PULSE 102; BMI 48.9
== END 2023-09-16 14:03 | disposition home or self-care (01) ==
PROVIDERS: PCP Nurse Practitioner Primary Care; Referring Provider Internal Medicine Medical Oncology; Visit Provider Surgery
DX: Z85.118 Personal history of other malignant neoplasm of bronchus and lung (principal)
CPT/HCPCS: 99204

== ENCOUNTER → 2023-09-16 13:27 | Outpatient (BNVA) | payer MEDICAID, SELFPAY | PROVIDERS: PCP Nurse Practitioner Primary Care; Referring Provider Internal Medicine Medical Oncology; Visit Provider Surgery | DX: C34.90 Malignant neoplasm of unspecified part of unspecified bronchus or lung (principal) | CPT/HCPCS: 99202 ==

== ENCOUNTER → 2023-09-19 14:41 | Outpatient (REF) | payer MEDICAID, SELFPAY ==
--- NOTE | 2023-09-19 14:44 | CA_ITS ---
Transthoracic Echocardiogram Patient (Last, First, Middle): Rosalba Palacios, Gender: Female Date of : 1960 Age: 63 Procedure Date: 09/19/2023 Procedure Type: Transthoracic Echocardiogram Location: OP Height: 154.94 cm Weight: 117.48 kg BSA: 2.11 m2 Heart Rate: 87 bpm BP: 154 / 72 mmHg Choir Member: JERMAINE Referring MD: Clarisa Rae DATA CLERK-C Warehouse Distribution Manager: Arun Johnson MD Symptoms: I42.9 - Cardiomyopathy, unspecified Study Quality: Fair despite contrast ECG Rhythm: Sinus Conclusions: - 1. Technically limited study despite use of contrast agent 2. Normal LV ejection fraction 55-60% with impaired relaxation filling pattern 3. Limited evaluation of cardiac valves Findings Procedure Information Contrast agent, definity, is being given per protocol without apparent complications. The quality of the study was technically difficult. The study quality is limited by patients body habitus and lung artifact. Left Ventricle The left ventricle was not well visualized. Normal left ventricular cavity size. The left ventricular systolic function is normal. The visually estimated ejection fraction is between 55-60%. Regional wall motion abnormalities can not be excluded due to suboptimal endocardial definition. Spectral Doppler is indicative of an impaired relaxation filling pattern. Right Ventricle The right ventricle was not well visualized. Atria The left atrium was not well visualized. Interatrial shunt cannot be excluded. The right atrium was not well visualized. Aortic Valve The aortic valve was not well visualized. There is no aortic valve stenosis. Mitral Valve The mitral valve was not well visualized. There is no mitral valve regurgitation. There is no mitral valve stenosis. Pulmonic Valve The pulmonic valve was not well visualized. Tricuspid Valve The tricuspid valve was not well visualized. Tricuspid regurgitation envelope is inadequate for calculation of right ventricular systolic pressure. Great Vessels The aorta was not well visualized. The pulmonary artery was not well visualized. Venous The inferior vena cava was not well visualized. Pericardium/Pleural The pericardium was not well visualized. Prior Study Comparison No significant change compared to prior study dated: 11/23/2020. aortic stenosis not appreciated on this study. Delay in reporting due to technical issues Measurements 2D Linear Measurements IVSd: 1.63 0.6-0.9/0.6-1.0 cm LVIDd: 5.06 3.9-5.3/4.2-5.9 cm LVIDd Index: 2.40 2.4-3.2/2.2-3.1 cm/m2 LVPWd: 0.89 0.7-1.1 cm LA Diam: 3.80 2.7-3.8/3.0-4.0 cm LAIDs Index: 1.80 1.5-2.3 cm/m2 LV Mass: 317.85 67-162/88-224 g LV Mass Index: 150.64 43-95/49-115 g/m2 LVOT Diam: 2.00 3.0+(-)1.3 cm 2D Systolic Function EF 4C: 56.40 >55% Mitral Valve MV Pk E: 0.66 MV PK A: 1.11 MV Decel Time: 121.00 E/A: 0.60 E'Medial: 5.00 E/E' Med: 13.10 PHT: 35.00 MVA PHT: 6.29 Decel Rice: 5.44 Aortic Valve AoV Pk Nithin: 1.85 AoV Mn Nithin: 1.31 AoV VTI: 0.34 AoV Pk Grad: 14.00 Aov Mn Grad: 8.00 DAVID Cont.VTI: 2.28 LVOT LVOT Pk Nithin: 1.37 LVOT Mn Nithin: 0.97 LVOT VTI: 0.25 LVOT Pk Grad: 8.00 LVOT Mn Grad: 4.00 LVOT Diam: 2.00 LVOT Area: 3.14 Diastolic Function MV Pk E: 0.66 MV Pk A: 1.11 E/A: 0.60 E'Medial: 5.00 E/E' Med: 13.10 Right Ventricle TAPSE (mm): 20.30 TVS' Nithin: 14.80 Great Vessels Aorta Ao Asc: 3.40 2.1-3.4 cm Pulmonary Valve PV Pk Nithin: 1.35 Peak PV Grad: 7.00 Updated in Other Vendor System with Status of Final Arun Johnson MD electronically signed on 09/20/2023 2:13:14 PM with status of Final
== END ==
LOC: HO.CARD 14:41
PROVIDERS: Visit Provider Nurse Practitioner Family
DX: I42.9 Cardiomyopathy, unspecified (principal); I10 Essential (primary) hypertension; I35.0 Nonrheumatic aortic (valve) stenosis
CPT/HCPCS: 93306; Q9957

== ENCOUNTER → 2023-09-19 14:44 | Outpatient (BNV) | payer MEDICAID, SELFPAY | PROVIDERS: Visit Provider Internal Medicine Cardiovascular Disease | DX: I42.9 Cardiomyopathy, unspecified (principal) | CPT/HCPCS: 93306 ==

== ENCOUNTER 2023-10-10 13:40 | Outpatient (AMB) | payer MEDICAID, SELFPAY ==
[2023-10-10 14:06] VITALS: BP 138/82; PULSE 94; BMI 49.5
--- NOTE | 2023-10-10 14:06 | MHC.OFFVIS ---
Intake Vital Signs 10/10/23 14:06 Height 5 ft 1 in Weight 261 lb 14.546 oz BMI 49.5 BP 138/82 Blood Pressure Location Lt brachial Position Sitting Pulse 94 Pulse Source Pulse Oximeter Intake Visit Reasons: 6 month follow up Bottom Turning Lathe Tender Required: Yes Bottom Turning Lathe Tender Language: Guidance Adviser Name: carolyn campbell [id number] Allergies No Known Allergies Allergy (Verified 10/10/23 14:09) Medication List - Last Reconciled 10/10/23 by LEO Ruiz albuterol sulfate 90 mcg/actuation (Ventolin HFA) 2 puffs inhalation QID amitriptyline 25 mg PO BEDTIME aspirin (Adult Low Dose Aspirin) 81 mg PO DAILY buprenorphine-naloxone 2-0.5 mg (Suboxone) 3 film buccal DAILY cholecalciferol (vitamin D3) 25 mcg PO DAILY dexamethasone 4 mg PO BID divalproex (Depakote) 1,000 mg PO ONCE docusate sodium (Colace) 100 mg PO BID PRN folic acid 1 mg PO DAILY furosemide 40 mg PO DIRECTED hydroxyzine pamoate 25 mg PO BID PRN lisinopril 40 mg PO DAILY loratadine (Allergy Relief (loratadine)) 10 mg PO DAILY melatonin 1 mg PO BEDTIME PRN montelukast (Singulair) 10 mg PO DAILY naloxone 4 mg/actuation (Narcan) 4 mg intranasal Q3M PRN olanzapine 15 mg PO DAILY ondansetron 8 mg PO Q8H pantoprazole 40 mg PO DAILY polyethylene glycol 3350 (Miralax) 17 grams PO DAILY prazosin 4 mg PO BEDTIME sennosides (Senokot) 8.6 mg PO DAILY simvastatin 80 mg PO DAILY umeclidinium-vilanterol 62.5-25 mcg/actuation (Anoro Ellipta) 1 ea inhalation DAILY 30 days HPI 6 month follow up HPI Details Rosalba is a 63-year-old female past medical history of morbid obesity, hypertension, left bundle branch block, cardiomyopathy, obstructive sleep apnea, mild aortic stenosis, lung CA with recent thoracic surgery who presents for follow-up. Today she reports she has been doing well since her surgery. She feels she is nearly recovered. She does have some shortness of breath and pressure in her chest with activities like stair climbing which is not new and it is not changing. She does not recall any cardiac complications reported during her recent surgery. No concerning heart palpitations, lightheadedness, presyncope, syncope, PND, orthopnea or edema. She has been doing normal ADLs including housework and Shaunna's. She reports good activity tolerance. Taking meds as directed. Certified language interpreter used. [facility] Medical History Morbid obesity Nicotine dependence, cigarettes, uncomplicated Substance abuse Hepatitis C Varicose veins of both lower extremities COURTNEY (obstructive sleep apnea) Surgical History History of right breast biopsy History of cardiac cath History of esophagogastroduodenoscopy (EGD) History of colonoscopy History of delivery History of tubal ligation Family History Mother History of lung cancer Brother History of lung cancer Social History Household Members: Family Alcohol intake: current Alcohol intake frequency: holidays/special occasions only Patient Tobacco Use Status: Current everyday Tobacco user Years Smoked: (onset 12yo, x 50yrs, max 3ppd, mostly 1ppd, now 1/4ppd - 50phy) Substance Use Type: Marijuana service: No Current occupational status: retired Review of Systems Const All systems reviewed & are unremarkable except as noted in HPI and below ENT Denies dizziness Card Details: Chest pressure with her shortness of breath during activity Denies chest pain at rest, Denies chest pain with activity, Denies rapid heart rate, Denies pedal edema, Denies edema, Denies leg edema, Denies lightheadedness, Denies palpitations, Denies dyspnea, Reports dyspnea on exertion and Denies orthopnea Resp Denies cough, Denies dyspnea and Reports dyspnea on exertion GI Denies hematochezia and Denies change in stool character Musc Denies abnormal gait, Denies limited range of motion, Denies muscle cramps, Denies muscle weakness, Denies numbness, Denies radiating pain into limb, Denies stiffness and Denies tingling Neuro Denies abnormal gait, Denies dizziness, Denies numbness and Denies tingling Endo Denies palpitations Physical Exam Vital Signs: Last Vital Signs Pulse 94 10/10/23 14:06 BP 138/82 10/10/23 14:06 BMI result Body Mass Index 49.5 Const General: cooperative, healthy appearing, comfortable and no acute distress Orientation/consciousness: patient oriented x3 Neck Neck: Yes normal visual inspection and Yes no JVD Resp Effort & Inspection: normal respiratory effort Auscultation: clear to auscultation bilaterally, no rales, no rhonchi and no wheezes Cardio Jugular venous distension: no JVD Rate: regular rate Rhythm: regular rhythm Heart sounds: S1 normal heart sound present, S2 normal heart sound present, no murmurs and no rubs Neuro General: patient oriented x3 Extrem General: Yes normal to inspection Psych Appearance: grossly normal Mental Status: mental status grossly normal Speech and movement: Normal speech and movement present Assessment & Plan Assessment & Plan (1) Chest discomfort: Code(s): R07.89 - Other chest pain Plan: Prior and current reports of shortness of breath and chest pressure occurring randomly at rest and with activity. Echocardiogram done 10/02/2022 showed EF 58%, moderate increase in LV thickness, mild aortic stenosis. EKG done on 03/25/2023 showing sinus rhythm with 1 PVC, left bundle branch block, rate 81, nondiagnostic for ischemia. She has history of left bundle branch block, no known history of coronary artery disease or prior AK. She does have cardiac risk factors of morbid obesity, hypertension, smoking. Pharmacological nuclear stress test done on 03/28/2023 showing anterior rate and apical ischemia with fixed septal defect which could represent prior AK, these findings could also be seen in patients with left bundle branch block, EF 45%. She recently underwent thoracic surgery without any reported cardiac complications. An echocardiogram was done on 09/19/2023 showing EF 55-60%, no aortic stenosis, wall motion abnormality could not be excluded. Her symptom of shortness of breath and chest pressure is not changing. She continues on aspirin 81 mg daily, simvastatin 80 mg daily. [place] LDL goal less than 70. Pulse rate 94 today. Will add a low-dose beta-tabby to see if this improves her symptom. Plan to call her in a few weeks to reassess. Cardiology follow-up in the office 6 months, sooner if needed. (2) Left bundle branch block: Code(s): I44.7 - Left bundle-branch block, unspecified Plan: Chronic (3) Essential hypertension: Code(s): I10 - Essential (primary) hypertension Plan: Mildly elevated, adding metoprolol. (4) Dyspnea on exertion: Code(s): R06.00 - Dyspnea, unspecified Plan: Shortness of breath with activity which could be multifactorial in nature. She is morbidly obese and admits to being sedentary at times. Cardiac testing as above. No clinical signs of heart failure on examination (5) Morbid obesity: Code(s): E66.01 - Morbid (severe) obesity due to excess calories Plan: As above Plan Time spent on chart review, documentation, interview and assessment Medications: New metoprolol succinate ER 25 mg PO DAILY 30 tabs 5RF Coding Level of Care Code Est Pt Level 4 (73897) Diagnoses Chest discomfort R07.89 Left bundle branch block I44.7 Essential hypertension I10 Dyspnea on exertion R06.00 Morbid obesity E66.01 Time Spent (min) 28
== END 2023-10-10 14:41 | disposition home or self-care (01) ==
PROVIDERS: PCP Nurse Practitioner Primary Care; Visit Provider Nurse Practitioner Family
DX: R07.89 Other chest pain (principal); I44.7 Left bundle-branch block, unspecified; I10 Essential (primary) hypertension; R06.00 Dyspnea, unspecified; E66.01 Morbid (severe) obesity due to excess calories
CPT/HCPCS: 99214

== ENCOUNTER → 2023-10-10 13:40 | Outpatient (BNVA) | payer MEDICAID, SELFPAY | PROVIDERS: PCP Nurse Practitioner Primary Care; Visit Provider Nurse Practitioner Family | DX: I44.7 Left bundle-branch block, unspecified (principal); R07.89 Other chest pain; I10 Essential (primary) hypertension; R06.00 Dyspnea, unspecified; E66.01 Morbid (severe) obesity due to excess calories; Z68.42 Body mass index [BMI] 45.0-49.9, adult | CPT/HCPCS: 99212 ==

== ENCOUNTER 2023-11-01 14:07 | Outpatient (REF) | payer MEDICAID, SELFPAY ==
--- NOTE | ~2023-11-01 | XR_ITS ---
EXAMINATION: XR CHEST CLINICAL INFORMATION: Cough and COPD exacerbation COMPARISON: Previous chest x-ray May [address] January 2023 TECHNIQUE: 2 views of the chest were obtained. FINDINGS: The cardiac silhouette is enlarged but stable. The thoracic aorta is slightly tortuous but stable. Hilar and mediastinal contours are otherwise unremarkable. There is minimal subsegmental atelectasis at the right lung base. Lungs are otherwise clear. No pleural effusion or pneumothorax. Degenerative changes of the spine. XR/XR chest 2V IMPRESSION: Stable enlargement of the cardiac silhouette. Minimal subsegmental atelectasis at the right lung base.
== END 2023-11-01 14:08 | disposition home or self-care (01) ==
LOC: HO.HHCX 14:07
PROVIDERS: Visit Provider Nurse Practitioner Primary Care
DX: J44.1 Chronic obstructive pulmonary disease with (acute) exacerbation (principal)
CPT/HCPCS: 71046

== ENCOUNTER 2023-12-24 11:19 | Outpatient (REF) | payer MEDICAID, SELFPAY ==
[2023-12-24 13:27] LABS: MANUAL DIFF FLAG NO
[2023-12-24 13:42] LABS: Basophils Percent Auto 0.6 % (0-2); Eosinophils Absolute Auto 0.1 X10*3/uL (0.0-0.4); Eosinophils Percent Auto 1.1 % (0-4); Hematocrit 43.6 % (37.0-47.0); Hemoglobin 13.9 g/dl (12.0-16.0); Imm Gran Abs Auto 0.02 X10*3/uL (0.00-0.03); Imm Gran Pct Auto 0.3 % (0.0-0.4); Lymphocytes Absolute Auto 1.8 X10*3/uL (1.2-4.9); Lymphocytes Percent Auto 28.5 % (20-40); Mean Corpuscular HGB Conc 31.9 g/dl (31.0-35.0); Mean Corpuscular Hemoglobin 30.2 pg (27.0-33.0); Mean Corpuscular Volume 94.8 fL (80.0-98.0); Mean Platelet Volume 10.9 fL (9.4-12.3); Monocytes Absolute Auto 0.4 X10*3/uL (0.1-1.2); Monocytes Percent Auto 6.4 % (2-11); Neutrophils Percent Auto 63.1 % (45-73); Platelet Count 226 X10*3/uL (160-400); Red Cell Distribution Width 12.9 % (11.0-16.0); White Blood Count 6.4 X10*3/uL (4.8-10.8)
[2023-12-24 14:06] LABS: Alanine Aminotransferase 14 U/L (0-31); Alkaline Phosphatase 89 U/L (39-117); Anion Gap 17 (12-20); Aspartate Amino Transferase 17 U/L (5-31); Bilirubin Direct < 0.2 mg/dL (0.0-0.5); Bilirubin Total 0.2 mg/dL (0.0-1.0); Blood Urea Nitrogen 13 mg/dL (9-16); Carbon Dioxide 29 mmol/L (22-29); Chloride 104 mmol/L (96-108); Estimated Glomerular Filt Rate > 60; Glucose Random 121 mg/dL (60-115); Potassium 3.8 mmol/L (3.3-5.1); Sodium 146 mmol/L (135-145); Total Protein 7.4 g/dL (6.5-8.0)
[2023-12-25 04:04] LABS: HIV AB/AG Nonreactive (Nonreactive); HIV Num 1 0.03 S/CO (0.00-0.99); ~HepC Num1 9.11 S/CO (0.00-0.79); ~Hepatitis C Antibody Reactive (Nonreactive)
[2023-12-27 14:52] LABS: HCV Log PCR <1.18 NOT DETECTED Log IU/mL (NOT DETECTED); HepC Viral Load <15 NOT DETECTED IU/mL (NOT DETECTED)
== END 2023-12-24 11:20 | disposition home or self-care (01) ==
LOC: HO.HHCL 11:19
PROVIDERS: Emergency Medicine; Visit Provider Internal Medicine Medical Oncology
DX: Z11.4 Encounter for screening for human immunodeficiency virus [HIV] (principal); F11.20 Opioid dependence, uncomplicated; Z85.118 Personal history of other malignant neoplasm of bronchus and lung
CPT/HCPCS: 36415; 80053; 80076; 82248; 85025; 86803; 87389; 87522

== ENCOUNTER 2024-01-31 10:00 | Outpatient (REF) | payer MEDICAID, SELFPAY ==
[2024-01-31 11:19] LABS: MANUAL DIFF FLAG NO
[2024-01-31 11:30] LABS: Basophils Percent Auto 0.6 % (0-2); Eosinophils Absolute Auto 0.1 X10*3/uL (0.0-0.4); Eosinophils Percent Auto 1.4 % (0-4); Hematocrit 43.9 % (37.0-47.0); Hemoglobin 14.1 g/dl (12.0-16.0); Imm Gran Abs Auto 0.03 X10*3/uL (0.00-0.03); Imm Gran Pct Auto 0.5 % (0.0-0.4); Lymphocytes Absolute Auto 2.2 X10*3/uL (1.2-4.9); Lymphocytes Percent Auto 34.4 % (20-40); Mean Corpuscular HGB Conc 32.1 g/dl (31.0-35.0); Mean Corpuscular Hemoglobin 29.7 pg (27.0-33.0); Mean Corpuscular Volume 92.6 fL (80.0-98.0); Mean Platelet Volume 10.6 fL (9.4-12.3); Monocytes Absolute Auto 0.6 X10*3/uL (0.1-1.2); Monocytes Percent Auto 9.1 % (2-11); Neutrophils Absolute Auto 3.5 x10*3/uL (2.0-8.3); Platelet Count 219 X10*3/uL (160-400); Red Blood Count 4.74 X10*6/uL (4.20-5.50); Red Cell Distribution Width 13.5 % (11.0-16.0); White Blood Count 6.5 X10*3/uL (4.8-10.8)
[2024-01-31 12:06] LABS: Valproate 46.7 mcg/mL (50.0-100.0)
[2024-01-31 12:11] LABS: Alanine Aminotransferase 21 U/L (0-31); Albumin Level 4.1 g/dL (3.5-5.0); Alkaline Phosphatase 84 U/L (39-117); Anion Gap 15 (12-20); Aspartate Amino Transferase 21 U/L (5-31); Bilirubin Total 0.4 mg/dL (0.0-1.0); Blood Urea Nitrogen 13 mg/dL (9-16); Calcium 9.8 mg/dL (8.4-10.2); Carbon Dioxide 32 mmol/L (22-29); Chloride 102 mmol/L (96-108); Estimated Glomerular Filt Rate > 60; Free T4 (Free Thyroxine) 0.95 ng/dL (0.71-1.85); Glucose Random 115 mg/dL (60-115); Potassium 3.7 mmol/L (3.3-5.1); Sodium 145 mmol/L (135-145); Thyroid Stimulating Hormone 1.16 uIU/mL (0.32-4.0); Total Protein 7.4 g/dL (6.5-8.0)
== END 2024-01-31 10:01 | disposition home or self-care (01) ==
LOC: HO.HHCL 10:00
PROVIDERS: Visit Provider Psychiatry & Neurology Psychiatry
DX: Z79.899 Other long term (current) drug therapy (principal)
CPT/HCPCS: 36415; 80053; 80164; 84439; 84443; 85025

== ENCOUNTER 2024-01-31 13:06 | Outpatient (REF) | payer MEDICAID, SELFPAY ==
[2024-01-31 16:39] LABS: Estimated Average Glucose 134 mg/dL; Hemoglobin A1c % 6.3 % (<6.0)
[2024-01-31 16:54] LABS: TSH reflex Free T4 0.38 uIU/mL (0.32-4.0)
== END 2024-01-31 13:07 | disposition home or self-care (01) ==
LOC: HO.HHCL 13:06
PROVIDERS: Visit Provider Nurse Practitioner Primary Care
DX: E04.2 Nontoxic multinodular goiter (principal); R73.09 Other abnormal glucose
CPT/HCPCS: 36415; 83036; 84443

== ENCOUNTER 2024-02-13 15:05 | Outpatient (REF) | payer MEDICAID, SELFPAY ==
--- NOTE | ~2024-02-13 | CT_ITS ---
EXAMINATION: CT CHEST WITH CONTRAST CLINICAL INFORMATION: Follow-up lung carcinoma COMPARISON: CT scan of lungs on 02/08/2023, CT pulmonary angiogram on 10/16/2016. TECHNIQUE: Multidetector volumetric CT imaging of the chest was obtained after the administration of 65 mL of Omnipaque 350 intravenous contrast without immediate adverse reactions. Axial MIP volume rendering provided. Sagittal and coronal reformatted images were obtained. This CT examination was performed using dose optimization techniques as appropriate, variously including the following: *Automated exposure control *Adjustment of mA and/or kV according to patient size (this includes techniques or standardized protocols for targeted exams where dose is matched to indication/reason for exam; i.e. extremities or head) *Use of iterative reconstruction technique DLP: 293 mGy-cm FINDINGS: LUNGS: There is interval appearance of high density surgical suture line along the medial border of right lung continues with the right pulmonary hilum, crossing over the right mainstem bronchus. There has been interval resection of the spiculated lung tumor at medial border of right upper lobe apical segment. Sagittally oriented surgical suture line is seen along the posterior medial border of right upper lobe apical segment. Just lateral to the right suprahilar high density suture line, a hypoenhancing lesion is seen, measuring 1.5 cm in AP diameter, 0.8 cm in width series 5 image #71. PLEURA: No pleural effusion or pneumothorax is seen. PERICARDIUM: No pericardial effusion is seen. There is moderate multichamber cardiomegaly. MEDIASTINUM AND VANIA: No abnormally enlarged mediastinal or hilar lymph nodes are seen. TRACHEOBRONCHIAL TREE: Trachea and bilateral mainstem bronchi are patent. THORACIC AORTA: The thoracic aorta shows fusiform ectasia in the ascending aorta measuring 3.7 cm in AP and transverse diameter, with focal atherosclerotic calcifications and smoothly patent. CORONARY ARTERY CALCIFICATIONS: Present PULMONARY ARTERIES: The main pulmonary arteries show normal enhancement. CHEST WALL AND LOWER NECK: The subcutaneous and muscular chest wall are intact with no focal lesion. A persistent 2.3 cm hypodense nodule (previously 2 cm) is seen in the left thyroid lobe. BONES: Multilevel anterior and lateral bridging syndesmophytes are present in the thoracic spine. No fracture or dislocation. No focal bone lesion diagnostic of metastatic disease could be seen in the thorax. VISUALIZED UPPER ABDOMEN: There is persistent marked hepatic steatosis, mean attenuation of 16.8 Hounsfield units in spite of intravenous contrast enhancement. There is persistent asymmetric thickening of the left adrenal gland, measuring 2.4 x 1.1 cm in size in the partially visualized portion, mean attenuation of [address]/CT chest w IV con IMPRESSION: 1. Interval resection of medial right upper lobe apical segment lung carcinoma, appearance of high density surgical suture line along the medial border of right lung continues with the right pulmonary hilum, crossing over the right mainstem bronchus. 2. Just lateral to the right suprahilar high density suture line, a hypoenhancing lesion is seen, measuring 1.5 cm in AP diameter, 0.8 cm in width, may represent fibrotic scar. 3. Persistent marked hepatic steatosis. 4. Persistent asymmetric thickening of the left adrenal gland, incompletely visualized, but stable since CT scan on 10/08/2016. 5. Recommend consideration of laboratory evaluation for possible pheochromocytoma and then subsequent evaluation with Adrenal Protocol CT. 6. Persistent 2.3 cm hypodense nodule in the left thyroid lobe. Further evaluation with ultrasound examination of the thyroid gland is again recommended to exclude malignancy. 7. Moderate multichamber cardiomegaly. 8. Persistent fusiform ectasia of the ascending aorta measuring 3.7 cm in AP and transverse diameter. Fleischner guidelines were followed.
[2024-02-13] MEDS: iohexoL 350 MG/ML 75 ML INFUS..BTL 65 ML IV (16:20)
== END 2024-02-13 15:06 | disposition home or self-care (01) ==
LOC: HO.CT 15:05
PROVIDERS: PCP Family Medicine; Visit Provider Internal Medicine Medical Oncology
DX: C34.91 Malignant neoplasm of unspecified part of right bronchus or lung (principal)
CPT/HCPCS: 71260; Q9967

== ENCOUNTER 2024-02-25 12:42 | Outpatient (REF) | payer MEDICAID, SELFPAY ==
--- NOTE | ~2024-02-25 | US_ITS ---
EXAMINATION: US THYROID CLINICAL INFORMATION: Thyroid nodules incidentally seen on chest CT. COMPARISON: CT chest with contrast 02/13/2024. TECHNIQUE: Linear transducer grayscale and color Doppler examination with attention to the region of the thyroid. FINDINGS: SIZE: Measurements of the thyroid lobes and nodules are given in sagittal, anteroposterior and transverse dimensions respectively. Right Thyroid Lobe: 3.6 x 2.0 x 1.5 cm, volume 5.6 mL. Parenchyma: The gland echotexture is homogeneous. Thyroid vascularity is normal. Left Thyroid Lobe: 5.3 x 2.9 x 3.3 cm, volume 26.1 mL. Parenchyma: The gland echotexture is homogeneous. Thyroid vascularity is normal. Isthmus: 0.7 cm in maximum AP dimension. Estimated total number of nodules greater than or equal to 1 cm: 3. Shingle Bolt Cutter nodules are described as follows: 1. Location: Right inferior. Size: 1.2 x 1.2 x 1.0 cm, volume 0.8 mL. Nodule characteristics: Composition: Solid (2). Echogenicity: Hypoechoic (2). Shape: Taller than wide (3). Margins: Smooth (0). Echogenic Foci: None (0). ACR TI-RADS total points: 7 ACR TI-RADS category: 5 2. Location: Left mid. Size: 1.0 x 0.5 x 1.0 cm, volume 0.2 mL. Nodule characteristics: Composition: Cystic(0). ACR TI-RADS total points: 0 ACR TI-RADS category: 1 3. Location: Left mid. Size: 3.6 x 2.3 x 2.8 cm, volume 12.1 mL. Nodule characteristics: Composition: Solid/almost completely solid (2). Echogenicity: Isoechoic (1). Shape: Not taller than wide (0). Margins: Smooth (0). Echogenic Foci: None (0). ACR TI-RADS total points: 3 ACR TI-RADS category: 3 NODES: No lymphadenopathy is seen in the tissue surrounding the thyroid gland. US/US thyroid IMPRESSION: 3.6 cm left mid TR3 thyroid nodule and 1.2 cm right inferior TR5 nodule meet criteria for biopsy. Fine-needle aspiration recommended. This study was presented to [place], [place], for interpretation. PSA staff will provide results to referring provider at this time. ACR TI-RADS RECOMMENDATION REFERENCE: Ultrasound-guided fine-needle aspiration, followup ultrasound, no further follow up. * TR1 (0 point) and TR2 (2 points): No FNA or follow up. * TR3 (3 points): FNA if more than or equal to 2.5 cm in maximum dimension, followup ultrasound in 1, 3 and 5 years if 1.5 to 2.4 cm in maximum dimension. * TR4 (4-6 points): FNA if more than or equal to 1.5 cm in maximum dimension, followup ultrasound in 1, 2, 3 and 5 years if 1 to 1.4 cm in maximum dimension. * TR5 (more than or equal to 7 points): FNA if more than or equal to 1 cm in maximum dimension, followup ultrasound every year for 5 years if 0.5 to 0.9 cm in maximum dimension. * TR3, TR4 or TR5 nodules that are below the size threshold for followup receive no follow up.
== END 2024-02-25 12:43 | disposition home or self-care (01) ==
LOC: HO.US 12:42
PROVIDERS: Visit Provider Nurse Practitioner Primary Care
DX: E04.2 Nontoxic multinodular goiter (principal)
CPT/HCPCS: 76536

== ENCOUNTER 2024-04-13 12:37 | Outpatient (REF) | payer MEDICARE, OTHER, SELFPAY ==
--- NOTE | ~2024-04-13 | US_ITS ---
ULTRASOUND-GUIDED THYROID NODULE FINE NEEDLE ASPIRATION INDICATION: Right lower thyroid nodule Left mid lobe thyroid nodule PROCEDURE: Informed consent was obtained from the patient prior to the procedure. During this process, the procedure and potential alternatives were explained, along with the intended outcome and benefits. The risks of the procedure, as well as the risks of not doing the procedure, were discussed. The patient was given the opportunity to ask questions regarding the procedure and appeared competent to make medical decisions. A signed consent form which documents this discussion was placed in the medical record. A timeout was performed in the room. The patient was placed in a supine position with the neck extended. The neck and chest was prepped and draped in routine sterile fashion. 1% lidocaine was used as anesthetic. Under real-time ultrasound guidance, a 25-gauge needle was placed into each nodule and aspiration was performed. A total of 3 aspirations were performed per nodule. The specimens were placed in CytoLyt and and the Affirma bottle. Postprocedure images showed no hematoma. A Band-Aid was applied to the access site. The patient tolerated the procedure well with no immediate complications. Permanent ultrasound images were archived to the procedure. US/US biopsy thyroid IMPRESSION: Left midpole and right lower pole thyroid nodule fine-needle aspirations This procedure was performed by Jeremiah Barrios PA-C, and directly supervised by Dr. Boone Electronically signed by: Jose De Jesus Boone MD 04/17/2024 03:08 PM EDT
[2024-04-13] MEDS: Lidocaine HCl 1 % MPF 5 ML VIAL 10 ML SUBCUT (14:42)
== END 2024-04-13 12:38 | disposition home or self-care (01) ==
LOC: HO.US 12:37
PROVIDERS: PCP Family Medicine; Visit Provider Nurse Practitioner Primary Care
DX: E04.2 Nontoxic multinodular goiter (principal)
CPT/HCPCS: 10005; 88112; 88305

== ENCOUNTER → 2024-04-13 12:41 | Outpatient (BNV) | payer MEDICARE, SELFPAY | PROVIDERS: PCP Family Medicine; Visit Provider Radiology Diagnostic Radiology | DX: E04.2 Nontoxic multinodular goiter (principal) | CPT/HCPCS: 10005; 10006 ==

== ENCOUNTER 2024-09-29 08:20 | Outpatient (REF) | payer MEDICARE, SELFPAY ==
--- OUTSIDE RECORDS SUMMARY | 2024-09-29 08:33 | XMS_ITS | Encounter Summary ---
Author Organization [employer] [facility] Address [address] [place] [address] Care Team Providers Care Operating Room Specialist Name Role Phone Caren Murphy Primary Care Provider [phone] Reason for Visit * Reason Comments Med Refill Encounter Details Date Type Department Care Team (Late Contact Info) Description 11/17/2022 Refill [facility] [address] [place] [address] [phone] Jerod Pruett MD [address] [place] [address] [phone] Uncomplicated opioid dependence (CMS/HCC) Social History Tobacco Use Types Packs/Day Years Used Date Smoking Tobacco: Some Days Cigarettes Passive Smoke Exposure: Current Smokeless Tobacco: Never Alcohol Use Standard Drinks/Week Comments Yes 0 (1 standard drink = 0.6 oz pur e alcohol) Socially Depression Answer Date Recorded Patient Health Questionnaire-2 Score 0 08/07/2022 Comments Unknown Sex and Gender Information Value Date Recorded Sex Assigned at Female 06/18/2022 10:18 AM EDT Legal Sex Female 10:18 AM EDT Gender Identity Female 06/18/2022 10:18 AM EDT Sexual Orientation Don't know 06/18/2022 10 :18 AM EDT documented as of this encounter Plan of Treatment Upcoming Encounters Date Type Department Care Team (Late Contact Info) Description 09/29/2024 9:30 AM EST Office Visit [facility] [address] [place] [address] [phone] Jerod Pruett MD [address] [place] [address] [phone] 11/24/2024 10:30 AM EDT Office Visit [facility] [address] [place] [address] Jerod Pruett MD [address] [place] [address] 01/19/2025 1:30 PM EDT Office Visit [facility] OPTOMETRY [address] [place] [address] Janene Parks, ADVY [address] [place] [address] documented as of this encounter Visit Diagnoses Diagnosis Uncomplicated opioid dependence (CMS/HCC) Opioid use disorder in remission- Primary documented in this encounter Care Teams Operating Room Specialist Relationship Specialty Start Date End Date Caren Murphy ANP [address] [place] [address] PCP - General Family Medicine 04/14/22 documented as of this encounter
--- OUTSIDE RECORDS SUMMARY | 2024-09-29 08:33 | XMS_ITS | Encounter Summary ---
Author Organization [employer] Address [address] [place] [address] Care Team Providers Care Shuttle Operator Name Role Phone Caren Murphy Primary Care Provider [phone] Reason for Visit * Reason Comments Med Refill Encounter Details Date Type Department Care Team ([facility] st Contact Info) Description 04/07/2024 Refill [facility] MEDICINE [address] [place] [address] Valencia Barnes MD [address] [place] [address] Uncomplicated opioid dependence (CMS/HCC) Social History Tobacco Use Types Packs/Day Years Used Date Smoking Tobacco: Unknown Passive Smoke Exposure: Current Smokeless Tobacco: Never Comments:Quiet 8 month Alcohol Use Standard Drinks/Week Comments Yes 0 (1 standard drink = 0.6 oz pur e alcohol) Socially Alcohol Answer Date Recorded Frequency of Alcohol Consumption Not on file 01/31/2024 Average Number of Drinks Not on file 024 Frequency of Binge Drinking Not on file 01/17 Score 0 01/31/2024 Depression Answer Date Recorded Patient Health Questionnaire-9 Score 16 11/01/2023 Patient Health Questionnaire-9 Score 16 11/01/2023 Last PHQ-9: Questionnaire Data Not on file 0 11/01/2023 Housing Stability Answer Date Recorded What is your housing situation today? I have miguelito burgos 06/03/[address] you li ve. Do you have problems with any of the following? None of the above 06/03/2023 Food Insecurity Answer Date Recorded Within the past 12 months, y ou worried that your food would run out before you got money to buy more: Never True 06/03/2023 Within the past 12 months,th e food you bought just didn't last and you didn't have enough money to get more: Never True Transportation Answer Date Recorded In the past 12 months, has l ack of transportation kept you from medical appts, meetings, work or from getting things needed for daily living? No 06/03/2023 Utilities Answer Date Recorded In the past 12 months, has t he electric, gas, oil or water company threatened to shut off services in your home? No 06/03/2023 Depression Answer Date Recorded Patient Health Questionnaire-2 Score 4 11/01/2023 Comments Unknown Sex and Gender Information Value Date Recorded Sex Assigned at Female 06/18/2022 10:18 AM EDT Legal Sex Female 10:18 AM EDT Gender Identity Female 06/18/2022 10:18 AM EDT Sexual Orientation Don't know 06/18/2022 10 :18 AM EDT documented as of this encounter Plan of Treatment Upcoming Encounters Date Type Department Care Team (Late st Contact Info) Description 09/29/2024 9:30 AM EST Office Visit [facility] MEDICINE [address] [place] [address] Jerod Pruett MD [address] [place] [address] 11/24/2024 10:30 AM EDT Office Visit [facility] MEDICINE [address] [place] [address] Jerod Pruett MD [address] [place] [address] 01/19/2025 1:30 PM EDT Office Visit [facility] OPTOMETRY [address] [place], [place] [phone] Janene Parks OD [address] [place] [address] documented as of this encounter Visit Diagnoses Diagnosis Uncomplicated opioid dependence (CMS/HCC) Opioid use disorder in remission- Primary documented in this encounter Additional Health Concerns Assessment Noted Time PHQ-9 Depression Total Score: 16 024 1:07 PM EDT documented as of this encounter Care Teams Shuttle Operator Relationship Specialty Start Date End Date Caren Murphy ANP [address] [place] [address] PCP - General Family Medicine 04/14/22 documented as of this encounter
--- OUTSIDE RECORDS SUMMARY | 2024-09-29 08:33 | XMS_ITS | Encounter Summary ---
Author Organization [employer] Address [address] [place] [address] Care Team Providers Care Belly Dump Driver Name Role Phone Murphy Caren AKHTAR Primary Care Provider [phone] Reason for Visit * Reason Comments Med Refill Encounter Details Date Type Department Care Team ([facility] st Contact Info) Description 02/11/2024 Refill [facility] MEDICINE [address] [place] [address] Jerod Pruett MD [address] [place] [address] Uncomplicated opioid dependence (CMS/HCC) Social History Tobacco [...] is your housing situation today? I have migueltio burgos 06/03/[address] you [...] Description 09/29/2024 9:30 AM EST Office Visit [facility] MEDICINE [address] [place] [address] Jerod Pruett MD [address] [place] [address] 11/24/2024 10:30 AM EDT Office Visit [facility] MEDICINE [address] [place] [address] Jerod Pruett MD [address] [place] [address] 01/19/2025 1:30 PM EDT Office Visit [facility] OPTOMETRY [address] [place] [address] Janene Parks OD [address] [place] [address] documented as of this encounter Visit Diagnoses Diagnosis Uncomplicated opioid dependence (CMS/HCC) Opioid use disorder in remission- Primary documented in this encounter Additional Health Concerns Assessment Noted Time PHQ-9 Depression Total Score: 16 024 1:07 PM EDT documented as of this encounter Care Teams Belly Dump Driver Relationship Specialty Start Date End Date Caren Murphy ANP [address] [place] [address] PCP - General Family Medicine 04/14/22 documented as of this encounter
--- OUTSIDE RECORDS SUMMARY | 2024-09-29 08:33 | XMS_ITS | Encounter Summary ---
Author Organization [employer] Address [address] [place] [address] Care Team Providers Care Materials Handling Coordinator Name Role Phone Murphy Caren AKHTAR Primary Care Provider [phone] Reason for Visit * Reason Comments Med Refill Encounter Details Date Type Department Care Team ([facility] st Contact Info) Description 07/02/2023 Refill [facility] MEDICINE [address] [place] [address] Jerod Pruett MD [address] [place] [address] Uncomplicated opioid dependence (CMS/HCC) Social History Tobacco Use Types Packs/Day Years Used Date Smoking Tobacco: Some Days Cigarettes Passive Smoke Exposure: Current Smokeless Tobacco: Never Alcohol Use Standard Drinks/Week Comments Yes 0 (1 standard drink = 0.6 oz pur e alcohol) Socially Housing Stability Answer Date Recorded What is [...] t he electric, gas, oil or water [employer] threatened to shut off services in your [...] Description 09/29/2024 9:30 AM EST Office Visit [facility] MEDICINE [address] [place] [address] Jerod Pruett MD [address] [place] [address] 11/24/2024 10:30 AM EDT Office Visit [facility] MEDICINE [address] [place] [address] Jerod Pruett MD [address] [place] [address] 01/19/2025 1:30 PM EDT Office Visit [facility] OPTOMETRY [address] [place] [address] Charly, Janene, OD [address] [place] [address] documented as of this encounter Visit Diagnoses Diagnosis Uncomplicated opioid dependence ([facility]) Opioid use disorder in remission- Primary documented in this encounter Care Teams Materials Handling Coordinator Relationship Specialty Start Date End Date Caren Murphy ANP [address] [place] [address] PCP - General Family Medicine 04/14/22 documented as of this encounter
--- OUTSIDE RECORDS SUMMARY | 2024-09-29 08:33 | XMS_ITS | Encounter Summary ---
Author Organization [employer] Address [address] [place] [address] Care Team Providers Care Ecommerce Marketing Manager Name Role Phone Caren Murphy Primary Care Provider Reason for Visit * Reason Comments Med Refill Encounter Details Date Type Department Care Team ([facility] st Contact Info) Description 09/18/2024 Refill [facility] MEDICINE [address] [place] [address] Caren Murphy ANP [address] [place] [address] Asthma-chronic obstructive pulmonary disease overlap syndrome (CMS/HCC) Social History Tobacco Use Types Packs/Day [...] Description 09/29/2024 9:30 AM EST Office Visit [facility] MEDICINE [address] [place] [address] Jerod Pruett MD [address] [place] [address] 11/24/2024 10:30 AM EDT Office Visit [facility] MEDICINE [address] [place] [address] Jerod Pruett MD [address] [place] [address] 01/19/2025 1:30 PM EDT Office Visit [facility] OPTOMETRY [address] [place] [address] Janene Parks, DAVY [address] [place] [address] documented as of this encounter Visit Diagnoses Diagnosis Asthma-chronic obstructive pulmonary disease overlap syndrome (CMS/HCC) Opioid use disorder in remission- Primary documented in this encounter Additional Health Concerns Assessment Noted Time PHQ-9 Depression Total Score: 16 024 1:07 PM EDT documented as of this encounter Care Teams Ecommerce Marketing Manager Relationship Specialty Start Date End Date Caren Murphy ANP [address] [place] [address] PCP - General Family Medicine 04/14/22 documented as of this encounter
--- OUTSIDE RECORDS SUMMARY | 2024-09-29 08:33 | XMS_ITS | Encounter Summary ---
Author Organization [employer] Address [address] [place] [address] Care Team Providers Care Business Instructor Name Role Phone Jeffrey Caren AKHTAR Primary Care Provider [phone] Reason for Visit * Reason Onset Date Comments Med Refill 09/23/2024 Encounter Details Date Type Department Care Team (Late st Contact Info) Description 09/23/2024 Refill [facility] MEDICINE [address] [place] [address] hRoda Muhammad RN Uncomplicated opioid dependence (CMS/HCC) Social History Tobacco [...] Description 09/29/2024 9:30 AM EST Office Visit [facility] MEDICINE [address] [place] [address] Jerod Pruett MD [address] [place] [address] 11/24/2024 10:30 AM EDT Office Visit [facility] MEDICINE [address] [place] [address] Jerod Pruett MD [address] [place] [address] 01/19/2025 1:30 PM EDT Office Visit [facility] OPTOMETRY [address] [place] [address] Janene Parks, OD [address] [place] [address] documented as of this encounter Visit Diagnoses Diagnosis Uncomplicated opioid dependence (CMS/HCC) Opioid use disorder in remission- Primary documented in this encounter Additional Health Concerns Assessment Noted Time PHQ-9 Depression Total Score: 16 024 1:07 PM EDT documented as of this encounter Care Teams Business Instructor Relationship Specialty Start Date End Date Caren Murphy ANP [address] [place] [address] PCP - General Family Medicine 04/14/22 documented as of this encounter
--- OUTSIDE RECORDS SUMMARY | 2024-09-29 08:34 | XMS_ITS | Encounter Summary ---
Author Organization [employer] Address [address] [place] [address] Care Team Providers Care Learning And Development Associate Name Role Phone Murphy Caren AKHTAR Primary Care Provider [phone] Reason for Visit * Reason Comments Med Refill Encounter Details Date Type Department Care Team ([facility] st Contact Info) Description 06/02/2024 Refill [facility] MEDICINE [address] [place] [address] Jerod Pruett MD [address] [place] [address] Uncomplicated opioid dependence (CMS/HCC) Social History Tobacco [...] Description 09/29/2024 9:30 AM EST Office Visit [facility] MEDICINE [address] [place] [address] Jerod Pruett MD [address] [place] [address] 11/24/2024 10:30 AM EDT Office Visit [facility] MEDICINE [address] [place] [address] Jerod Pruett MD [address] [place] [address] 01/19/2025 1:30 PM EDT Office Visit [facility] OPTOMETRY [address] [place] [address] Janene Parks OD [address] [place] [address] documented as of this encounter Visit Diagnoses Diagnosis Uncomplicated opioid dependence (CMS/HCC) Opioid use disorder in remission- Primary documented in this encounter Additional Health Concerns Assessment Noted Time PHQ-9 Depression Total Score: 16 024 1:07 PM EDT documented as of this encounter Care Teams Learning And Development Associate Relationship Specialty Start Date End Date Caren Murphy ANP [address] [place] [address] PCP - General Family Medicine 04/14/22 documented as of this encounter
--- OUTSIDE RECORDS SUMMARY | 2024-09-29 08:34 | XMS_ITS | Encounter Summary ---
Author Organization [employer] Address [address] [place] [address] Care Team Providers Care Correctional Counselor Name Role Phone Murphy Caren AKHTAR Primary Care Provider [phone] Reason for Visit * Reason Comments Med Refill Encounter Details Date Type Department Care Team ([facility] st Contact Info) Description 10/14/2023 Refill [facility] MEDICINE [address] [place] [address] Jerod Pruett MD [address] [place] [address] Uncomplicated opioid dependence (CMS/HCC) Social History Tobacco [...] t he electric, gas, oil or water [employer] threatened to shut off services in your [...] 9:30 AM EST Office Visit [facility] MEDICINE [address] [place] [address] Jerod Pruett MD [address] [place] [address] 11/24/2024 10:30 AM EDT Office Visit [facility] MEDICINE [address] [place] [address] Jerod Pruett MD [address] [place] [address] 01/19/2025 1:30 PM EDT Office Visit [facility] OPTOMETRY [address] [place] [address] Charly, Janene, OD [address] [place] [address] documented as of this encounter Visit Diagnoses Diagnosis Uncomplicated opioid dependence ([facility]) Opioid use disorder in remission- Primary documented in this encounter Care Teams Correctional Counselor Relationship Specialty Start Date End Date Caren Murphy ANP [address] [place] [address] PCP - General Family Medicine 04/14/22 documented as of this encounter
--- OUTSIDE RECORDS SUMMARY | 2024-09-29 08:34 | XMS_ITS | Clinical Summary ---
Author Organization [facility] 299 [facility] Address [address] [place] [address] Phone Care Team Providers Care Plate Developer Name Role Phone Martín De Santiago MD Primary Care Provider [phone] Allergies No known active allergies Medications albuterol sulfate (ProAir RespiClick) 90 mcg/actuation aerosol powdr breath activated Inhale 2 Puffs into the lungs 4 times daily. Active amitriptyline (ELAVIL) 25 mg tablet Take 1 Tablet by mouth at bedtime. Active aspirin 81 mg EC tablet Take 1 Tablet by mouth daily. Active buprenorphine-n aloxone (SUBOXONE) 2-0.[address] 3 Film under the tongue daily. Active buPROPion XL (WELLBUTRIN XL) 300 mg 24 hr tablet Take 1 Tablet by mouth every morning. Active cholecalciferol (VITAMIN D-3) 25 mcg (1,000 unit) capsule Take 1 Capsule by mouth daily. Active divalproex (DEPAKOTE) [address] tablet Take 2 Tablets by mouth daily. Active docusate sodium (COLACE) 100 mg capsule Take 1 Capsule by mouth 2 times daily as needed. Active furosemide (LASIX) 40 mg tablet Take 1 Tablet by mouth daily. Active lisinopril (PRINIVIL,ZESTR IL) 40 mg tablet Take 1 Tablet by mouth daily. Active loratadine (CLARITIN) 10 mg tablet Take 1 Tablet by mouth daily. Active montelukast (SINGULAIR) 10 mg tablet Take 1 Tablet by mouth at bedtime. Active naloxone (NARCAN) 4 mg/0.1 mL nasal spray 4 mg by Nasal route every 30 minutes as needed. Active OLANZapine (ZyPREXA) 15 mg tablet Take 1 Tablet by mouth at bedtime. Active pantoprazole (PROTONIX) 40 mg EC tablet Take 1 Tablet by mouth daily. Active polyethylene glycol (MIRALAX) 17 gram packet Take 1 Packet by mouth daily. Active senna (SENOKOT) 8.6 mg tablet Take 1 Tablet by mouth daily. Active simvastatin (ZOCOR) 80 mg tablet Take 1 Tablet by mouth at bedtime. Active umeclidinium-vi lanteroL (Anoro Ellipta) 62.5-25 mcg/actuation inhaler Inhale 1 Dose into the lungs daily. Active Active Problems Problem Noted Date Diagnosed Date History of lung cancer 07/21/2024 Assessment & Plan (07/21/2024 11:29 AM EST): Ms. Doss is a 63 yr. female who is S/P a Robotic right upper lobe wedge with completion lobectomy for a stage 1b pulmonary adenocarcinoma (pT2a,pN0). She was referred to medical onocology at [facility] and completed 8 cycles of adjuvant chemotherapy and denies any immunotherapy. Her most recent chest CT scan which was performed on 07/06/2024 at [facility] and shows no new or worsening pulmonary nodules or mediastinal lymphadenopathy with no change in overall low attenuating left adrenal mass. Instructed to contact her PCP to ensure that no further workup of this left adrenal mass which is possibly an adenoma. Will also be forwarding our note to her PCP. Her next chest CT surveillance scan will be due in 6 months which will be December 2024 and have a visit at the thoracic surgery department thereafter to discuss results. Adrenal mass 07/21/2024 Assessment & Plan (07/21/2024 11:30 AM EST): 2 cm left adrenal mass which was noted on her most recent chest CT scan on 06/2024 and appears stable compared to her previous from 6 months ago. Patient was advised that we would be contacting her PCP and that she should also contact her PCP to see if any further imaging is warranted with ultrasound to ensure that this is in fact an adrenal adenoma versus something concerning like a malignancy. Lung cancer 05/13/2023 Overview (06/02/2024): Last Assessment & Plan: Ms. Doss is a 63-year-old female previously in the [facility] lung cancer screening program who on May 07, 2023 had a da Missy robotic right upper lobectomy and mediastinal lymphadenectomy for stage [id number] or stage Ib adenocarcinoma. ?? Patient will be referred to medical oncology at [facility] for discussion of possible adjuvant chemotherapy or immunotherapy in the future. ?? She was also educated that she will continue to follow with the thoracic surgery department every 6 months for the first 2 years following her surgical date with a chest CT surveillance scan. At the end of those [address] surveillance scan will be increased to 12-month intervals for 3 years thereafter for total surveillance of 5 years per NCCN guidelines. ?? Her next chest CT surveillance scan will be due in November 2023 and a visit at the thoracic surgical follow-up department thereafter to discuss results which should both take place at [facility]. ?? While patient was in office today her right-sided chest tube was removed without incident and a dry occlusive dressing put in place with instructions not to remove dressing for 48 hours. ?? She will have a follow-up visit in our department next week with a chest x- ray prior to visit to ensure her chest tube site is healing properly and that her lung remains well-expanded. ?? Also instructed to discontinue her Keflex. Encounters Date Type Department Care Team Description 07/15/2024 10:30 AM EST Office Visit Thoracic Surgery - [place] [address] [facility] [address] [place] [id number] Sourav Benitez, PA History of lung cancer (Primary Dx); Adrenal mass (CMS/HCC) 07/06/2024 10:30 AM EST - 07/06/2024 11:59 PM EST Hospital Encounter [facility] CT Scan [address] [place] [id number] Hx of cancer of lung Discharge Disposition: Home or Self Care from Last 3 Months Surgical History Surgery Date Site/Laterality Comments CARDIAC CATHETERIZATION N/A PROCEDURE: HISTORICAL CARDIAC CATH SECTION N/A PROCEDURE: HISTORICAL DELIVERY COLONOSCOPY N/A PROCEDURE: HISTORICAL COLONOSCOPY BREAST BIOPSY Right PROCEDURE: AK BIOPSY BREAST OPEN INCISIONAL TUBAL LIGATION PROCEDURE: HISTORICAL TUBAL LIGATION OTHER SURGICAL HISTORY 05/07/2023 Right PROCEDURE: AK THORACOSCOPY W/LOBECTOMY SINGLE LOBE; COMMENT: RUL wedge THYROID BIOPSY 07/10/2024 at [facility] Medical History Medical History Date Comments Hepatitis C DX:Hepatitis C Morbid obesity (CMS/HCC) DX:Morb id obesity (HCC) Nicotine dependence DX:Nicotine dependence Substance abuse (CMS/HCC) DX:Sub stance abuse (HCC) Sleep apnea, obstructive DX:Slee p apnea, obstructive Asymptomatic varicose veins of lower extremity DX:Asymptomatic varicose vei ns of lower extremity Family History Medical History Relation Name Comments Other cancer Brother lung Other cancer Mother lung Relation Name Status Comments Brother Mother Social History Tobacco Use Types Packs/Day Years Used Date Smoking Tobacco: Former Cigarettes 0 08/19/1971 - 04/05/2023 Smokeless Tobacco: Never Alcohol Use Standard Drinks/Week Comments Yes 0 (1 standard drink = 0.6 oz pur e alcohol) Comments Unknown Sex and Gender Information Value Date Recorded Sex Assigned at Female 07/06/2024 10:42 AM EST Legal Sex Female 6:52 PM EST Gender Identity Female 07/06/2024 10:42 AM EST Sexual Orientation Straight 07/06/2024 10 :42 AM EST Obstetrics History Last Filed Vital Signs Vital Sign Reading Time Taken Comments Blood Pressure 181/112 07/15/2024 11:01 AM EST retake 183/81 Left forearm Pulse 65 07/15/2024 11:01 AM EST Temperature 36.5 ??C (97.7 ??F) 07/15/2024 1 1:01 AM EST Respiratory Rate 16 07/15/2024 11:0 1 AM EST Oxygen Saturation 97% 07/15/2024 11: 01 AM EST Inhaled Oxygen Concentration - - Weight 109 kg (241 lb) 07/15/2024 11:01 AM EST Height 154.9 cm (5' 1 ) 07/15/2024 11:0 1 AM EST Body Mass Index 45.54 07/15/2024 11:01 AM EST Plan of Treatment Upcoming Encounters Date Type Department Care Team (Late st Contact Info) Description 01/19/2025 3:00 PM EDT Appointment [facility] CT Scan [address] [place] [address] Health Maintenance Due Date Last Done Comments Cervical Cancer Screening: Pap Smear 1980 Pneumococcal Vaccine: 50+ Years (2 of 2 - PCV) 09/30/2010 09/30/2009, 09/30/2009 Pneumococcal Vaccine: Pediatrics (0 to 5 Years) and At-Risk Patients (6 to 64 Years) (2 of 2 - PCV) 09/30/2010 09/30/2009, 09/30/2009 Hepatitis B Vaccines (1 of 3 - Risk 3-dose series) 2019 RSV Immunization Patients 60+ Years Old (1 - Risk 60-74 years 1-dose series) 2019 DTaP,Tdap,and Td Vaccines (3 - Td or Tdap) 03/09/2021 09/09/2020, 05/18/2005 Colorectal Cancer Screening: Colonoscopy 09/17/2023 Hepatitis C Screening 09/17/2023 Medicare Annual Wellness Visit 09/17/2023 Osteoporosis Screening (Bone Density Screening) 09/17/2023 Social Influencers of Health Screening 09/17/2023 Falls Risk Assessment 2024 Hypertension/CHF/CAD Annual BMP Blood Test 07/06/2024 Breast Cancer Screening 08/28/2024 08/28/2022 Depression Screening 10/31/2024 11/01/2023 Cholesterol Screening (Lipid Panel) 10/02/2027 10/02/2022 Hepatitis A Vaccines Completed 09/08/2019, 02/18/20 19 Zoster Vaccines Completed 12/16/2020, 09/09/2020 Influenza Vaccine Completed 04/30/2024, , 05/21/2022, Additional history exists COVID-19 Vaccine Completed 05/21/2024, , 05/21/2022, Additional history exists HIB Vaccines Aged Out No longer eligi ble based on patient's age to complete this topic HPV Vaccines Aged Out No longer eligi ble based on patient's age to complete this topic IPV Vaccines Aged Out No longer eligi ble based on patient's age to complete this topic MMR Vaccines Aged Out No longer eligi ble based on patient's age to complete this topic Meningococcal ACWY Vaccine Aged Out N o longer eligible based on patient's age to complete this topic Meningococcal B Vacine Aged Out No lo nger eligible based on patient's age to complete this topic RSV Immunization Patients Under 20 months Aged Out No longer eligible based on patient's age to complete this topic Varicella Vaccines Aged Out No longer eligible based on patient's age to complete this topic Procedures Procedure Name Priority Date/Time Associated Diagnosis Comments CT CHEST WO CONTRAST Routine 07/06/2024 11:05 AM EST Hx of cancer of lung from Last 3 Months Results * CT Chest wo Contrast (07/06/2024 11:05 AM EST) Anatomical Region Laterality Modality Body Computed Tomogra phy 07/07/2024 4:56 PM EST Impressions 07/07/2024 5:07 PM EST Previous right upper lobectomy. No evidence of new or recurrent malignancy. Stable low attenuating small left adrenal mass possibly an adenoma. Fatty change in liver. ?? -------- FINAL REPORT -------- Dictated By: Mumtaz Browning Dictated Date: 07/07/2024 16:56 ET Assigned Physician: Mumtaz Browning Reviewed and Electronically Signed By: Mumtaz Browning Signed Date: 07/07/2024 17:07 ET Workstation ID: [id number] Transcribed By: Self Edit Transcribed Date: 07/07/2024 16:56 ET Narrative 07/07/2024 5:07 PM EST EXAMINATION: CT CHEST WITHOUT CONTRAST CLINICAL INFORMATION: History of lung cancer. ??Evaluate for interval change COMPARISON: Portions of previous 12/31/2023 ?? TECHNIQUE: Multidetector CT. Examination of the chest. Examination of the chest without IV contrast. Reformatting in the coronal and sagittal planes. DLP: 1221 mGy-cm Dose optimization was performed including the use of low-dose iterative reconstruction technique with automatic exposure control based on patient size. Type of contrast: None Volume of IV contrast: None Volume of contrast discarded: 0 mL FINDINGS: LUNG: Evidence of right upper lobectomy. Metallic sutures present. No suspicious change at the surgical margin. There are secretions in the lower right side of the trachea. There is some distortion of the right middle lobe segmental airways. There is no suspicious mass or nodule. ?? MEDIASTINUM: ??Unchanged cystic enlargement of the left lobe of the thyroid. No change in the region of the right internal mammary vessels. No measurably enlarged mediastinal or hilar lymph nodes. No suspicious abnormality esophagus. CARDIAC: The heart is not enlarged. No pericardial fluid or thickening ?? CORONARY CALCIFICATION: ??There are marked coronary calcifications. VASCULAR: There is no thoracic aortic aneurysm. The main pulmonary artery is normal caliber ?? PLEURAL: There is no pleural fluid or pneumothorax ?? AXILLA/CHEST WALL: There are no enlarged axillary lymph nodes. No chest wall mass demonstrated ?? VISUALIZED UPPER ABDOMEN: ??Extensive fatty change in the liver with some areas of sparing. No change in an oval low attenuating left adrenal mass. MUSCULOSKELETAL: No suspicious focal bony lesion. ?? Procedure Note Mumtaz Browning MD - 07/07/2024 EXAMINATION: CT CHEST WITHOUT CONTRAST CLINICAL INFORMATION: History of lung cancer. Evaluate for interval change COMPARISON: Portions of previous 12/31/2023 TECHNIQUE: Multidetector CT. Examination of the chest. Examination of the chest without IV contrast. Reformatting in the coronal and sagittal planes. DLP: 1221 mGy-cm Dose optimization was performed including the use of low-dose iterativereconstruction technique with automatic exposure control based on patientsize. Type of contrast: None Volume of IV contrast: None Volume of contrast discarded: 0 mL FINDINGS: LUNG: Evidence of right upper lobectomy. Metallic sutures present. Nosuspicious change at the surgical margin. There are secretions in the lower right side of the trachea. There is somedistortion of the right middle lobe segmental airways. There is no suspicious mass or nodule. MEDIASTINUM: Unchanged cystic enlargement of the left lobe of thethyroid. No change in the region of the right internal mammary vessels. No measurably enlarged mediastinal or hilar lymph nodes. No suspiciousabnormality esophagus. CARDIAC: The heart is not enlarged. No pericardial fluid or thickening CORONARY CALCIFICATION: There are marked coronary calcifications. VASCULAR: There is no thoracic aortic aneurysm. The main pulmonary arteryis normal caliber PLEURAL: There is no pleural fluid or pneumothorax AXILLA/CHEST WALL: There are no enlarged axillary lymph nodes. No chestwall mass demonstrated VISUALIZED UPPER ABDOMEN: Extensive fatty change in the liver with someareas of sparing. No change in an oval low attenuating left adrenal mass. MUSCULOSKELETAL: No suspicious focal bony lesion. IMPRESSION: Previous right upper lobectomy. No evidence of new or recurrent malignancy. Stable low attenuating small left adrenal mass possibly an adenoma. Fattychange in liver. -------- FINAL REPORT -------- Dictated By: Mumtaz Browning Dictated Date: 07/07/2024 16:56 ET Assigned Physician: Mumtaz Browning Reviewed and Electronically Signed By: Mumtaz Browning Signed Date: 07/07/2024 17:07 ET Workstation ID: [id number] Transcribed By: Self Edit Transcribed Date: 07/07/2024 16:56 ET us Danilo Hawk MD IMG CT PROCEDURES Final Result from Last 3 Months Insurance MEDICARE MEDICAID - [place] Care Teams Plate Developer Relationship Specialty Start Date End Date Martín DeS antiago MD [address] [address] PCP - General Internal Medicine 06/02/24
--- OUTSIDE RECORDS SUMMARY | 2024-09-29 08:34 | XMS_ITS | Encounter Summary ---
Author Organization [employer] [facility] Address [address] [place] [address] Care Team Providers Care Trim Machine Adjuster Name Role Phone Jeffrey Caren AKHTAR Primary Care Provider [phone] Encounter Details Date Type Department Care Team (Late st Contact Info) Description 12/24/2023 Orders Only [facility] [address] [place] [address] Rhoda Muhammad RN Uncomplicated opioid dependence (CMS/HCC) Social History Tobacco Use Types Packs/Day Years Used Date Smoking Tobacco: Some Days Cigarettes Passive Smoke Exposure: Current Smokeless Tobacco: Never Alcohol Use Standard Drinks/Week Comments Yes 0 (1 standard drink = 0.6 oz pur e alcohol) Socially Depression Answer Date Recorded Patient Health Questionnaire-9 [...] Description 09/29/2024 9:30 AM EST Office Visit [facility] [address] [place] [address] Jerod Pruett MD [address] [place] [address] 11/24/2024 10:30 AM EDT Office Visit [facility] [address] [place] [address] Jerod Pruett MD [address] [place] [address] 01/19/2025 1:30 PM EDT Office Visit [facility] OPTOMETRY [address] [place] [address] Charly, Janene, OD [address] [place] [address] Scheduled Orders Name Type Priority Associated Diagnoses Orde r Schedule Hepatic Function Panel Lab Routine Uncomplicated opioid dependence (CMS/HCC) Expected: 12/24/2023 (Approximate), Expires: 12/23/2024 Hepatitis C Antibody with Reflex to HCV, RNA, Quantitative, Real-Time PCR Lab Routine Uncomplicated opioid dependence (CMS/HCC) Expected: 12/24/2023 (Approximate), Expires: 12/23/2024 HIV-1/2 Antigen and Antibodies, Fourth Generation, with Reflexes Lab Routine Uncomplicated opioid dependence (CMS/HCC) Expected: 12/24/2023 (Approximate), Expires: 12/23/2024 documented as of this encounter Procedures Procedure Name Priority Date/Time Associated Diagnosis Comments HEPATITIS C VIRAL RNA, QUANTITATIVE, REAL-TIME PCR Routine 12/24/2023 11:26 AM EDT Uncomplicated opioid dependence (CMS/HCC) HEPATITIS C AB W/REFL TO HCV RNA, QN, PCR Routine 12/24/2023 11:26 AM EDT Uncomplicated opioid dependence (CMS/HCC) HIV 1/2 ANTIGEN/ANTIBODY, FOURTH GENERATION W/RFL Routine 12/24/2023 11:26 AM EDT Uncomplicated opioid dependence (CMS/HCC) documented in this encounter Results * Hepatitis C Viral RNA, Quantitative, Real-Time PCR (12/24/2023 11:26 AM EDT) Hepatitis C Viral Load <15 NOT DETECTED NOT DETECTED IU/mL [facility] HCV Log PCR <1.18 NOT DETECTED NOT DETECTED Log IU/mL [facility] Comment:This test was perfor med using Real-Time Polymerase ChainReaction.Reportable Range: 15 IU/mL to 100,000,000 IU/mL(1.18 Log IU/mL to 8.00 Log IU/mL).The analytical performance characteristics of thisassay have been determined by [employer].The modifications have not been cleared or approved bythe FDA. This assay has been validated pursuant to theCLIA regulations and is used for clinical purposes.For more information on this test, go to:http://education.ProfStream/faq/JCV15q2(This link is being provided for informational/educational purposes only.)THIS TEST WAS PERFORMED AT:[facility] [place] [phone] MARTINES MD 12/24/2023 11:2 6 AM EDT 12/25/2023 8:31 AM EDT us Jerod Pruett MD LAB BLOOD ORDERABLES Final Res ult [facility] [address] [place] [phone] * HIV-1/2 Antigen and Antibodies, Fourth Generation, with Reflexes (12/24/2023 11:26 AM EDT) HIV AB/AG Nonreactive Nonreactive [facility] Comment:HIV-1 p24 Ag and/or HIV-1/HIV-2 Ab not detected.A test result that is nonreactive does not exclude thepossibility of exposure to or infection with HIV-1 and/orHIV-2. Nonreactive results in this assay for individualswith prior exposure to HIV-1 and/or HIV-2 may be due toantigen and antibody levels that are below the limit ofdetection of this assay.The [employer] HIV Ag/Ab Combo assay result andsupplemental assay results should be interpreted inconjunction with the patient's clinical presentation,history and other laboratory results. If the results areinconsistent with clinical evidence, additional testing issuggested to confirm the result. 12/24/2023 11:2 6 AM EDT 12/24/2023 1:16 PM EDT Jerod Pruett MD LAB BLOOD ORDERABLES Final Res ult Performing Organization Address [facility]/ZIP Co de Phone Number [facility] [address] [place] [phone] * (ABNORMAL) Hepatitis C Antibody with Reflex to HCV, RNA, Quantitative, Real- Time PCR (12/24/2023 11:26 AM EDT) Hepatitis C Antibody Reactive( A) Nonreactive [facility] Comment:Presumptive evidence of antibodies to HCV. 12/24/2023 11:2 6 AM EDT 12/24/2023 1:16 PM EDT us Jerod Pruett MD LAB BLOOD ORDERABLES Final Res ult Performing Organization Address City/[facility]/ZIP Co de Phone Number [facility] [address] [place] [phone] documented in this encounter Visit Diagnoses Diagnosis Uncomplicated opioid dependence (CMS/HCC) Opioid use disorder in remission- Primary documented in this encounter Additional Health Concerns Assessment Noted Time PHQ-9 Depression Total Score: 16 024 1:07 PM EDT documented as of this encounter Care Teams Trim Machine Adjuster Relationship Specialty Start Date End Date Caren Murphy ANP [address] [place] [address] PCP - General Family Medicine 04/14/22 documented as of this encounter
--- OUTSIDE RECORDS SUMMARY | 2024-09-29 08:34 | XMS_ITS | Encounter Summary ---
Author Organization [employer] Address [address] [place] [address] Care Team Providers Care Woods Rider Name Role Phone Jeffrey Caren AKHTAR Primary Care Provider [phone] Encounter Details Date Type Department Care Team (Late st Contact Info) Description 12/23/2023 Orders Only [facility] [address] [place] [address] Rhoda Muhammad RN Social History Tobacco Use Types Packs/Day Years [...] 09/29/2024 9:30 AM EST Office Visit [facility] [address] [place] [address] Jerod Pruett MD [address] [place] [address] 11/24/2024 10:30 AM EDT Office Visit [facility] [address] [place] [address] Jerod Pruett MD [address] [place] [address] 01/19/2025 1:30 PM EDT Office Visit [facility] OPTOMETRY [address] [place] [address] Charly, Janene, OD [address] [place] [address] documented as of this encounter Visit Diagnoses Not on filedocumented in this encounter Additional Health Concerns Assessment Noted Time PHQ-9 Depression Total Score: 16 024 1:07 PM EDT documented as of this encounter Care Teams Woods Rider Relationship Specialty Start Date End Date Caren Murphy ANP [address] [place] [phone] PCP - General Family Medicine 04/14/22 documented as of this encounter
--- OUTSIDE RECORDS SUMMARY | 2024-09-29 08:34 | XMS_ITS | Clinical Summary ---
Author Organization [employer] Address [address] [place] [address] Care Team Providers Care Bookkeeping Machine Operator Name Role Phone Marianna Chow HERMILO Primary Care Provider [phone] Allergies Active Allergy Reactions Criticality Noted Date Comments Risperidone 11/14/2017 Other reaction(s): Hives / Skin Rash Medications furosemide (Lasix) 40 MG tablet Take 1 tablet by mouth 1 (one) time each day. May take 1 additional tablet daily as needed for edema Active prazosin (Minipress) 2 MG capsule Take 2 capsules by mouth at bedtime. Active divalproex (Depakote ER) 500 MG 24 hr tablet Take 2 tablets by mouth at bedtime. Active nystatin (Mycostatin) 674319 UNIT/GM powder Apply topically every 12 (twelve) hours. To the affected area(s) Active Blood Pressure Monitoring (Blood Pressure Cuff) [facility] Fot htn. Please teach patient how to use and track BP Active Naloxone HCl (NARCAN NA) Administer into affected nostril(s). [place] 0.1 mL by intranasal route in 1 nostril may repeat dose every 2-3 minutes as needed alternating nostrils with each dose. Active albuterol (2.5 MG/3ML) 0.083% nebulizer solutionIndicatio ns:Asthma-chronic obstructive pulmonary disease overlap syndrome (CMS/HCC) Take 3 mL (2.5 mg) by nebulization every 6 (six) hours if needed for wheezing. 75 mL 11 022 Active Respiratory Therapy Supplies (Nebulizer/Tubing /Mouthpiece) kitIndications:As thma-chronic obstructive pulmonary disease overlap syndrome (CMS/HCC) 1 each if needed each day (asthma). 1 kit 3 022 Active Respiratory Therapy Supplies (Nebulizer Mask Adult) miscIndications:A sthma-chronic obstructive pulmonary disease overlap syndrome (CMS/HCC) 1 Piece if needed (asthma). 1 each 023 Active acetaminophen (Tylenol) 325 MG tablet TAKE 3 TABLETS BY MOUTH EVERY 6 HOURS 023 Active buPROPion XL (Wellbutrin XL) 300 MG 24 hr tablet TAKE 1 TABLET BY MOUTH EVERY MORNING 023 Active hydrOXYzine pamoate (Vistaril) 25 MG capsule TAKE 1 CAPSULE BY MOUTH TWICE DAILY NEEDED FOR ANXIETY 023 Active melatonin tablet TAKE 1 TABLET BY MOUTH AT BEDTIME NEEDED FOR SLEEP 023 Active OLANZapine (ZyPREXA) 10 MG tablet TAKE 1 TABLET BY MOUTH AT BEDTIME 023 Active pantoprazole (ProtoNix) 40 MG EC tablet TAKE 1 TABLET BY MOUTH EVERY MORNING 90 tablet 3 024 Active montelukast (Singulair) 10 MG tablet TAKE 1 TABLET BY MOUTH EVERY EVENING 90 tablet 3 024 Active D3 Super Strength 50 MCG (2000 UT) capsule TAKE 1 CAPSULE BY MOUTH EVERY MORNING 90 capsule 3 024 Active mupirocin (Bactroban) 2 % ointmentIndicatio ns:Ulcer of right lower extremity, limited to breakdown of skin (CMS/HCC) Use BID as needed for wound 22 g 024 Active metoprolol succinate XL (Toprol-XL) 25 MG 24 hr tablet Take 25 mg by mouth in the morning. 024 Active folic acid (Folvite) 1 MG tablet Take 1,000 mcg by mouth Once per day. 024 Active Ventolin HFA 108 (90 Base) MCG/ACT inhalerIndication s:Asthma-chronic obstructive pulmonary disease overlap syndrome (CMS/HCC) INHALE 2 PUFFS BY MOUTH EVERY 6 HOURS NEEDED FOR WHEEZING 18 g 1 024 Active aspirin (Aspirin Low Dose) 81 MG EC tabletIndications :Hyperlipidemia, unspecified hyperlipidemia type,Cardiomyopat hy, unspecified type (CMS/HCC) TAKE 1 TABLET BY MOUTH EVERY MORNING 90 tablet 1 025 Active lisinopril 40 MG tabletIndications :Primary hypertension TAKE 1 TABLET BY MOUTH EVERY MORNING 90 tablet 1 025 Active simvastatin (Zocor) 80 MG tabletIndications :Hyperlipidemia, unspecified hyperlipidemia type TAKE 1 TABLET BY MOUTH AT BEDTIME 90 tablet 1 025 Active loratadine (Claritin) 10 MG tabletIndications :Environmental and seasonal allergies TAKE 1 TABLET BY MOUTH EVERY MORNING 90 tablet 1 025 Active docusate sodium (Colace) 100 MG capsuleIndication s:Constipation, unspecified constipation type TAKE 1 CAPSULE BY MOUTH AT BEDTIME 90 capsule 1 025 Active Anoro Ellipta 62.5-25 MCG/ACT aerosol powderIndications :Asthma-chronic obstructive pulmonary disease overlap syndrome (CMS/HCC) INHALE 1 PUFF BY MOUTH EVERY DAY IN THE MORNING AT THE SAME TIME RINSE MOUTH AFTER USING. 60 each 2 025 Active Buprenorphine HCl-Naloxone HCl (Suboxone) 8-2 MG SL filmIndications:U ncomplicated opioid dependence (CMS/HCC) Place 1 Film under the tongue Once per day. 28 Film 1 025 2024 Active buprenorphine-nal oxone (Suboxone) 2-0.5 MG per sublingual filmIndications:U ncomplicated opioid dependence (CMS/HCC) Place 1 Film under the tongue 2 times daily. 56 Film 1 025 2024 Active Anoro Ellipta 62.5-25 MCG/ACT aerosol powderIndications :Asthma-chronic obstructive pulmonary disease overlap syndrome (CMS/HCC) INHALE 1 PUFF BY MOUTH EVERY DAY AT THE SAME TIME IN THE MORNING 60 each 2 024 2024 Discontinued Buprenorphine HCl-Naloxone HCl (Suboxone) 8-2 MG SL filmIndications:U ncomplicated opioid dependence (CMS/HCC) Place 1 Film under the tongue Once per day. 28 Film 1 024 2024 Discontinued(R eorder (will not trigger notification to Pharmacy)) buprenorphine-nal oxone (Suboxone) 2-0.5 MG per sublingual filmIndications:U ncomplicated opioid dependence (CMS/HCC) Place 1 Film under the tongue 2 times daily. 56 Film 1 024 2024 Discontinued(R eorder (will not trigger notification to Pharmacy)) Active Problems Problem Noted Date Diagnosed Date Thyroid nodule greater than or equal to 1.5 cm in diameter incidentally noted on imaging study 02/21/2024 Overview (02/21/2024): US ordered to eval 01/31/[address] 02/13/24 Aortic ectasia, thoracic 02/13/2024 Overview (02/21/2024): 3.7cm in AP diameter on Chest CT 01/2024 Malignant neoplasm of upper lobe of right lung 1 Overview (01/31/2024): Images from the original note were not included. Dx'd 05/07/23 w/ thoracic surgeon Dr. Hawk Now s/p R upper lobectomy and mediastinal lymphadenectomy and s/p chemotherapy From [facility] 05/07/23, 05/21/23 (visit at which chest tube removed). Last appt 01/06/24 Impacted cerumen of right ear 02/18/2023 Assessment & Plan (02/18/2023 11:05 AM EDT): Removed with irrigation. Return if there is any pain or worsening symptoms. Cardiomyopathy 07/30/2022 Overview (01/31/2024): From Cards visit 04/09/23 pre-op for thoracic surgery: Echocardiogram done 10/02/2022 showed EF 58%, moderate increase in LV thickness, mild aortic stenosis. EKG done on 2023 showing sinus rhythm with 1 PVC, left bundle branch block, rate 81, nondiagnostic for ischemia. She has history of left bundle branch block, no known history of coronary artery disease or prior [place]. She does have cardiac risk factors of morbid obesity, hypertension, smoking. Pharmacological nuclear stress test done on 03/28/2023 showing anterior rate and apical ischemia with fixed septal defect which could represent prior [place], these findings could also be seen in patients with left bundle branch block, EF 45%. She is on aspirin 81 mg daily, simvastatin 80 mg daily. [place] LDL goal less than 70. Heart failure 07/30/2022 Hypertensive disorder 07/30/2022 Peripheral vascular disease 07/30/2022 Normal colonoscopy 10/14/2020 Sampling of cervix for Papanicolaou smear comple gely 10/14/2020 Fibroadenoma of right breast 09/08/2020 Viral hepatitis C 09/08/2020 Biceps tendinitis 04/08/2017 Opioid dependence 02/16/2014 Depressed bipolar I disorder 03/24/2013 Substance abuse 02/26/2013 Varicose veins of lower extremity 04/17/2012 Backache 02/14/2012 Asthma-chronic obstructive p ulmonary disease overlap syndrome 02/14/2012 Gastroesophageal reflux disease 02/14/2012 Hyperlipidemia 02/14/2012 Obesity 02/14/2012 Obstructive sleep apnea syndrome 02/14/2012 Tobacco dependence syndrome 02/14/2012 Encounters Date Type Department Care Team Description 09/23/2024 Refill [facility] [address] [place] [address] Rhoda Muhammad RN Uncomplicated opioid dependence (CMS/HCC) 09/18/2024 Refill [facility] [address] [place] [address] Marianna Chow ANP Asthma-chronic obstructive pulmonary disease overlap syndrome (CMS/HCC) 08/26/2024 Refill [facility] [address] [place] [address] Marianna Chow ANP Hyperlipidemia, unspecified hyperlipidemia type; Cardiomyopathy, unspecified type (CMS/HCC); Primary hypertension; Environmental and seasonal allergies; Constipation, unspecified constipation type 08/10/2024 Refill [facility] [address] [place] [address] Marianna Chow ANP Asthma-chronic obstructive pulmonary disease overlap syndrome (CMS/HCC) 08/04/2024 9:15 AM EST Office Visit [facility] [address] [place] [address] Jerod Pruett MD Opioid use disorder in remission (Primary Dx); Uncomplicated opioid dependence (CMS/HCC); Encounter for screening for infections with a predominantly sexual mode of transmission 08/04/2024 Travel 07/29/2024 Telephone [facility] [address] [place] [address] Marianna Chow ANP Appointment Request 07/27/2024 Refill [facility] [address] [place] [address] Rhoda Muhammad RN Uncomplicated opioid dependence ([facility]) 07/09/2024 Orders Only [facility] [address] [place] [address] ProviderVineet MD 07/01/2024 Refill [facility] [address] [place] [address] Marianna Chow ANP Asthma-chronic obstructive pulmonary disease overlap syndrome ([facility]) 06/30/2024 Telephone [facility] [address] [place] [address] Marianna Chow ANP Appointment Request from Last 3 Months Immunizations Name Administration Dates Next Due Hep A, Adult 09/08/2019,02/17/2019 Hep A, Unspecified 09/08/2019 Influenza Injectable Quadriv alant Preservative Free IIV4 MDCK 05/27/2020,05/28/2019 Influenza injectable quadriv alent IIV4 with preservative 05/21/2018,07/06/2016,06/06/2015 Influenza injectable quadriv alent preservative free 06/07/2023,05/21/2022,05/19/2021,05/20 Influenza, High Dose Seasona l, Preservative Free 04/30/2024 Influenza, IIV3, injectable 07/13/2014 Influenza, Split (incl. tiffanie fied surface antigen) 05/20/2013,04/17/2012 Moderna Covid-19 Vaccine 12+ 11/28/2021, 05/19/2021,11/28/2020,10/31 Pfizer Covid-19 Vaccine 12+ 05/21/2024, 3 Pfizer Covid-19 Vaccine 12+ Bivalent 05/21/2022 Pneumococcal Polysaccharide PPSV23 09/30/2009 Pneumococcal, Unspecified 09/30/2009 TD (adult), 2 Lf tetanus tox oid, preservative free, adsorbed 05/18/2005 Tdap 09/09/2020 Zoster, Recombinant 12/16/2020,09/09/2020 Family History Medical History Relation Name Comments Lung cancer Brother not heavy smoke r Lung cancer Mother Relation Name Status Comments Brother Mother Social History Tobacco Use Types Packs/Day Years Used Date Smoking Tobacco: Unknown Passive Smoke Exposure: Current Smokeless Tobacco: Never Tobacco Cessation:Counseling Given: No Comments:Quiet 8 month Alcohol Use Standard Drinks/Week [...] Don't know 06/18/2022 10 :18 AM EDT Last Filed Vital Signs Vital Sign Reading Time Taken Comments Blood Pressure 110/62 01/31/2024 10:53 AM EDT Pulse 92 01/31/2024 10:53 AM EDT Temperature 37.2 ??C (98.9 ??F) 01/31/2024 10:53 AM E DT Respiratory Rate 20 01/31/2024 10:53 AM EDT Oxygen Saturation 98% 01/31/2024 10:53 AM EDT Inhaled Oxygen Concentration - - Weight 118 kg (259 lb 9.6 oz) 01/31/2024 10:53 A M EDT Height 154.9 cm (5' 1 ) 01/31/2024 10:53 AM EDT Body Mass Index 49.05 01/31/2024 10:53 AM EDT Plan of Treatment Upcoming Encounters Date Type Department Care Team (Late st Contact Info) Description 09/29/2024 9:30 AM EST Office Visit [facility] [address] [place] [phone] Jerod Pruett MD [address] [place] [address] 11/24/2024 10:30 AM EDT Office Visit [facility] [address] [place] [address] Jerod Pruett MD [address] [place] [address] 01/19/2025 1:30 PM EDT Office Visit [facility] [address] [place] [address] Janene Parks, OD [address] [place] [address] Health Maintenance Due Date Last Done Comments CT Colonography 1960 FIT DNA/Cologuard 1960 FIT 1960 FOBT 1960 Sigmoidoscopy 1960 Pneumococcal Vaccine: 50+ Years (2 of 2 - PCV) 09/30/2010 09/30/2009, 09/30/2009 Hepatitis B Vaccines (1 of 3 - Risk 3-dose series) 2019 RSV Patients and Patients Aged 60 years or older (1 - Risk 60-74 years 1-dose series) 2019 Mammogram 08/28/2023 08/28/2022, 07/20, 07/25/2020, Additional history exists Depression Monitoring (PHQ-9) 05/03/2024 11/01/2023, 11/01/2023 Depression Screening 10/31/2024 11/01/2023, 11/01/19 24 SDOH Screening 10/31/2024 11/01/2023 Alcohol/Substance Use Screening 01/30/2025 01/31/2024 Diabetes: Hemoglobin A1C 01/30/2025 024, 10/14/2020, 06/13/2020 Tobacco Screening 01/30/2025 01/31/2024 Cervical Cancer Screening 01/13/2026 HPV/Cotest 01/13/2026 01/13/2021 Pap Smear 01/13/2026 01/13/2021 Colonoscopy 04/19/2026 04/19/2016 Colorectal Cancer Screening 04/19/2026 Lipid Panel 10/02/2027 10/02/2022, 09/20, 06/13/2020 DTaP/Tdap/Td Vaccines (2 - Td or Tdap) 09/09/2030 09/09/2020, 05/18/2005 Hepatitis A Vaccines Completed 09/08/2019, 09/08/2019, 02/17/2019 Zoster Vaccines Completed 12/16/2020, 09/09/2020 Influenza Vaccine [...] patient's age to complete this topic Meningococcal Vaccine Aged Out No analisa chilango eligible based on patient's age to complete this topic RSV under 20 months Aged Out No longe r eligible based on patient's age to complete this topic Rotavirus Vaccines Aged Out No longer eligible based on patient's age to complete this topic Procedures Procedure Name Priority Date/Time Associated Diagnosis Comments POCT [place]-14 URINE DRUG SCREEN Routine 08/04/2024 10:08 AM EST Uncomplicated opioid dependence (CMS/HCC) CT CHEST WO CONTRAST Routine 07/06/2024 11:24 AM EST HEMOGLOBIN A1C Routine 01/31/2024 1:09 PM EDT Elevated hemoglobin A1c LIPID PANEL, STANDARD Routine 10/02/2022 12:24 PM EST BI MAMMOGRAM SCREENING TOMOSYNTHESIS BILATERAL Routine 08/28/2022 2:50 PM EST HPV MRNA E6/E7 Routine 01/13/2021 10:02 AM EDT THINPREP PAP Routine 01/13/2021 10:02 AM EDT HM COLONOSCOPY Routine 04/19/2016 from Last 3 Months or Most Recently Relevant to Health Maintenance Results * POCT [place]-14 Urine Drug Screen (08/04/2024 10:08 AM EST) THC Positive Cocaine Screen, Urine Negative Opiate Screen, Urine Negative Methamphetamine Screen Urine Negative Amphetamine Screen, Urine Negative Benzodiazepines Screen, Urine Negative Barbiturate Screen, Urine Negative Methadone Screen, Urine Negative Buprenophine Screen, Urine Positive TCA, Urine Negative MDMA Urine Negative ng/mL Oxycodone Screen, Urine Negative Phencyclidine (PCP), Urine Negative Propoxyphene, Urine Negative Fentanyl, Urine Negative Urine Urine specimen obtained by clean catch procedure / Unknown 08/04/2024 10:08 AM EST Jerod Pruett MD POINT OF CARE TEST ENTER/EDIT ORDERABLES Final Result * CT CHEST WO CONTRAST (07/06/2024 11:24 AM EST) Anatomical Region Laterality Modality Computed Tomogra phy Historical Provider IMRobert CT PROCEDURES Final R esult * (ABNORMAL) Hemoglobin A1c (01/31/2024 1:09 PM EDT) Hemoglobin A1c 6.3(H) <6.0 % [facility] Comment:Hemoglobin A1C Refer ence Range Adults: 4.8 - 6.0 % Non diabetic: < 6.0 % Goal: < 7.0 %Additional Action Suggested: > 8.0 %Note: Hemoglobin A1c results are invalid for patients with abnormal amounts of HbF. Blood transfusions may impact the HbA1c concentration in the patient sample. Estimated Average Glucose 134 mg/dL [facility] Comment:eAG = Estimated ave rage glucose which is %A1C expressed asaverage glucose, using the formula of the M3G-HrdtaetUmnhaxm Glucose study (ADAG), Diabetes Care, Vol.31,#8,Mar. 2007 Blood Venous blood specimen / Unknown 01/31/2024 1:09 PM EDT 01/31/2024 4:11 PM EDT [facility] LAB BLOOD ORDERABLES Final Resul t [facility] [address] [place] [phone] * Lipid Panel, Standard (10/02/2022 12:24 PM EST) Triglycerides 99 mg/dL [facility] Comment:Desirable Triglyceri de: less than 150 mg/dLBorderline High Triglyceride 150-199 mg/dLHigh Triglyceride: 200-499 mg/dLVery High Triglyceride: greater than or equal to 5OO mg/dL Cholesterol 180 mg/dL [facility] Comment:Desirable Cholestero l: less than 200 mg/dLBorderline High Cholesterol: 200-239 mg/dLHigh Cholesterol: greater than 239 mg/dL LDL Cholesterol Calculated 106 mg/dl [facility] Comment:Desirable LDL: less than 100 mg/dLNear Optimal/Above Optimal LDL: 110- 129 mg/dLBorderline High LDL: 130-159 mg/dLHigh LDL: 160-189 mg/dLVery High LDL: greater than or equal to 190 mg/dL HDL Cholesterol 55 mg/dL [facility] Comment:Desirable HDL: great er than 40 mg/dL Note: This HDL assay may give artificially low results in patients with liver disease. 10/02/2022 12:2 4 PM EST 10/02/2022 12:24 PM EST us [facility] External Provider LAB BLO OD ORDERABLES Final Result [facility] [address] [place] [address] [phone] * BI Mammogram Screening Tomosynthesis Bilateral (08/28/2022 2:50 PM EST) Anatomical Region Laterality Modality Breast Bilateral Mammography 08/28/2022 2:50 PM EST Narrative 08/30/2022 9:45 AM EST ? [facility] ? [address] ?[place] [address] ? Mammography Report ? Signed ? Patient: Doss Josh,Rosalba ?MR#: M ?? [id number] ? : 1960 ?Acct:[id number] ? Age/Sex: 62 / F ?ADM Date: 01/10/23 ? Loc: HO.MAMMO ? Attending Dr: Marianna Chow [employer]RAF[employer] ? Ordering Physician: CLAUDNIE,MARIANNA [employer] ?Results: 2Benign Fin ?? dings ? Date of Service: //23 ?Follow Up: 1 Year From Orig ?? inal Mammogram ? Procedure(s): MM tomosynthesis screening BI ?? Accession Number(s): [id number] ? cc: CLAUDINE,MARIANNA [employer] ? EXAMINATION: ?? MM SCREENING DIGITAL BREAST TOMOSYNTHESIS, BILATERAL ? CLINICAL INFORMATION: ? Screening. Asymptomatic. Benign right stereotactic biopsy 07/28/2020 ?? (benign breast tissue with fibroadenomatous change and coarse ?? calcifications). ? The lifetime risk of breast cancer based on the Tyrer-Cuzick Model is ?? 4%. ? COMPARISON: ?? Mammography: 07/28/2020, 07/25/2020, 04/28/2019, 04/21/2019 ? TECHNIQUE: ?? Digital breast tomosynthesis is performed in both the craniocaudal and ?? mediolateral oblique views along with computer-aided detection (CAD). ?? Synthesized 2D images are generated from the tomosynthesis. ??Additional ?? bilateral CC and additional bilateral MLO views are provided. ? FINDINGS: ?? There are scattered areas of fibroglandular density (ACR BI-RADS breast ?? composition Category b). ? Parenchymal pattern is similar to prior studies. There is no developing ?? density or architectural abnormality. No abnormal calcifications. There ?? is biopsy clip marker again noted central right breast mid depth. The ?? axilla and skin contours are unremarkable. No significant changes. ? MM/MM tomosynthesis screening BI ?? IMPRESSION: ?? No mammographic evidence of malignancy. ? ASSESSMENT: ? BI-RADS 2: Benign ? RECOMMENDATION: ?? Routine annual mammography screening. ? This patient's information was entered into a reminder system with a ?? target due date for their next mammogram. ? Dictated By: ?Almas Chi MD ? Signed By: ?<Electronically signed by Almas Chi MD in OV> ?08/30/22941 ? DD/ ? TD/TT: ? [employer]: CADET ? Procedure Note [place], Image - 08/30/2022 [facility] [address] [place] [address] Mammography Report Signed Patient: Rosalba Palacios#: M [id number] : 9Acct:[id number] Age/Sex: 62 / FADM Date: 08/28/22 Loc: HO.MAMMO Attending Dr: Marianna Chow NP Ordering Physician: MARIANNA CHOW NPResults: 2Benign [place] Date of Service: 08/28/22Follow Up: 1 Year From Orig inal Mammogram Procedure(s): MM tomosynthesis screening BI Accession Number(s): [id number] cc: MARIANNA CHOW NP EXAMINATION: MM SCREENING DIGITAL BREAST TOMOSYNTHESIS, BILATERAL CLINICAL INFORMATION: Screening. Asymptomatic. Benign right stereotactic biopsy 07/28/2020 (benign breast tissue with fibroadenomatous change and coarse calcifications). The lifetime risk of breast cancer based on the Tyrer-Cuzick Model is 4%. COMPARISON: Mammography: 07/28/2020, 07/25/2020, 04/28/2019, 04/21/2019 TECHNIQUE: Digital breast tomosynthesis is performed in both the craniocaudal and mediolateral oblique views along with computer-aided detection (CAD). Synthesized 2D images are generated from the tomosynthesis. Additional bilateral CC and additional bilateral MLO views are provided. FINDINGS: There are scattered areas of fibroglandular density (ACR BI-RADS breast composition Category b). Parenchymal pattern is similar to prior studies. There is no developing density or architectural abnormality. No abnormal calcifications. There is biopsy clip marker again noted central right breast mid depth. The axilla and skin contours are unremarkable. No significant changes. MM/MM tomosynthesis screening BI IMPRESSION: No mammographic evidence of malignancy. ASSESSMENT: BI-RADS 2: Benign RECOMMENDATION: Routine annual mammography screening. This patient's information was entered into a reminder system with a target due date for their next mammogram. Dictated By: Almas Chi MD Signed By: <Electronically signed by Almas Chi MD in OV> 08/30/22 0942 DD/ 1450 TD/TT: [employer]: CADET [facility] External Provider IMG BI PROCEDURES Final Result * THINPREP PAP (01/13/2021 10:02 AM EDT) Clinical Information: None given [facility] COMMENT SEE COMMENT [facility] Comment: EXPLANATORY NOTE: ? The Pap is a screening test for cervical cancer. It is ?? not a diagnostic test and is subject to false negative ?? and false positive results. It is most reliable when a ?? satisfactory sample, regularly obtained, is submitted ?? with relevant clinical findings and history, and when ?? the Pap result is evaluated along with historic and ?? current clinical information. ?? Acidizer Water Well : SEE COMMENT [facility] Comment: GSG, CT(ASCP) CT screening location: [address] ??[id number] Interpretation/R esult: Negative for intraepithelial lesion or malignancy. [facility] LMP: NONE GIVEN [facility] Prev. BX: NONE GIVEN [facility] Prev. PAP: NONE GIVEN [facility] SOURCE: None given [facility] Statement Of Adequacy: SEE COMMENT [facility] Comment: Satisfactory for evaluation. Endocervical/transformation zone component absent. 01/13/2021 10:0 2 AM EDT Remedios Lobo [facility] PATHOLOGY ORDERABLES Final Result [facility] [address] * HPV mRNA E6/E7 (01/13/2021 10:02 AM EDT) HPV nRNA E6/E7 Not Detected Not Detected [facility] Comment: Methodology: [employer]-Mediated Amplification This assay detects E6/E7 viral messenger RNA (mRNA) from 14 high-risk HPV types (16,18,31,33,35,39,45,51,52,56,58,59,66,68). ? The analytical performance characteristics of this assay have been determined by [employer]. The modifications have not been cleared or approved by the FDA. This assay has been validated pursuant to the CLIA regulations and is used for clinical purposes. ?? For additional information, please refer to http://education.WeeWorld.Searchdaimon/faq/VQT783x3 (This link if provided for information/ educational purposes only.) 01/13/2021 10:0 2 AM EDT Remedios Lobo [employer] REPA[employer]ER OPERATOR LAB BLOOD ORDERABLES Final Res ult [facility] [address] * Colonoscopy (04/19/2016) Pathologist [facility] Colonoscopy Normal Normal Historical Provider MD HEALTH MAINTENANCE Final Result from Last 3 Months or Most Recently Relevant to Health Maintenance Insurance [place] [address] [place] [id number] [facility] Care Teams Bookkeeping Machine Operator Relationship Specialty Start Date End Date Marianna Chow ANP [address] [place] [address] PCP - General Family Medicine 04/14/22
--- OUTSIDE RECORDS SUMMARY | 2024-09-29 08:34 | XMS_ITS | Encounter Summary ---
Author Organization [email or web address] Address [address] [facility] 7t [place] [address] Care Team Providers Care Primary Health Care Nurse Name Role Phone Caren Murphy Primary Care Provider [phone] Encounter Details Date Type Department Care Team ([facility] Contact Info) Description 07/09/2024 Orders Only [facility] [address] [place] [address] Provider, MD Vineet Social History Tobacco Use Types Packs/Day Years [...] 09/29/2024 9:30 AM EST Office Visit [facility] MEDICINE 230 [place] [address] Jerod Pruett MD [address] [place] [address] 11/24/2024 10:30 AM EDT Office Visit [facility] MED[facility]INE [address] [place] [address] Jerod Pruett MD [address] [place] [address] 01/19/2025 1:30 PM EDT Office Visit [facility] OPTOMETRY [address] [place] [address] Charly, Janene, OD 230 [place] [address] documented as of this encounter Procedures Procedure Name Priority Date/Time Associated Diagnosis Comments CT CHEST WO CONTRAST Routine 07/06/2024 11:24 AM EST documented in this encounter Results * CT CHEST WO CONTRAST (07/06/2024 11:24 AM EST) Anatomical Region Laterality Modality Computed Tomogra phy us Historical Provider MD IBARRA CT PROCEDURES Final R esult documented in this encounter Visit Diagnoses Not on filedocumented in this encounter Additional Health Concerns Assessment Noted Time PHQ-9 Depression Total Score: 16 024 1:07 PM EDT documented as of this encounter Care Teams Primary Health Care Nurse Relationship Specialty Start Date End Date Caren Murphy ANP [address] [place] [address] PCP - General Family Medicine 04/14/22 documented as of this encounter
[2024-09-29 11:00] LABS: MANUAL DIFF FLAG NO
[2024-09-29 11:12] LABS: Basophils Percent Auto 0.6 % (0-2); Eosinophils Absolute Auto 0.1 X10*3/uL (0.0-0.4); Eosinophils Percent Auto 1.2 % (0-4); Hematocrit 41.6 % (37.0-47.0); Hemoglobin 13.1 g/dl (12.0-16.0); Imm Gran Abs Auto 0.02 X10*3/uL (0.00-0.03); Imm Gran Pct Auto 0.3 % (0.0-0.4); Lymphocytes Absolute Auto 2.7 X10*3/uL (1.2-4.9); Mean Corpuscular HGB Conc 31.5 g/dl (31.0-35.0); Mean Corpuscular Hemoglobin 29.7 pg (27.0-33.0); Mean Corpuscular Volume 94.3 fL (80.0-98.0); Mean Platelet Volume 11.5 fL (9.4-12.3); Monocytes Absolute Auto 0.6 X10*3/uL (0.1-1.2); Monocytes Percent Auto 8.5 % (2-11); Neutrophils Absolute Auto 3.4 x10*3/uL (2.0-8.3); Neutrophils Percent Auto 49.4 % (45-73); Platelet Count 217 X10*3/uL (160-400); Red Blood Count 4.41 X10*6/uL (4.20-5.50); White Blood Count 6.8 X10*3/uL (4.8-10.8)
[2024-09-29 11:27] LABS: Alanine Aminotransferase 13 U/L (0-31); Albumin Level 3.9 g/dL (3.5-5.0); Alkaline Phosphatase 89 U/L (39-117); Anion Gap 15 (12-20); Aspartate Amino Transferase 24 U/L (5-31); Bilirubin Direct 0.1 mg/dL (0.0-0.5); Bilirubin Total 0.3 mg/dL (0.0-1.0); Blood Urea Nitrogen 10 mg/dL (9-16); Calcium 9.4 mg/dL (8.4-10.2); Carbon Dioxide 30 mmol/L (22-29); Chloride 104 mmol/L (96-108); Estimated Glomerular Filt Rate > 60; Glucose Random 125 mg/dL (60-115); Potassium 3.2 mmol/L (3.3-5.1); Sodium 146 mmol/L (135-145); Total Protein 7.4 g/dL (6.5-8.0)
[2024-09-29 11:59] LABS: B Type Natriuretic Peptide 15 pg/mL (<100)
[2024-10-01 12:34] LABS: RPR Rapid Plasma Reagin NON-REACTIVE (NON-REACTIVE)
[2024-10-02 15:14] LABS: TS Negative Control Passed; TS Panel A 0; TS Panel B 0; TS Positive Control Passed; TSpotTB Negative (Negative)
[2024-10-05 16:43] LABS: Aldosterone/Renin Ratio 20.5 Ratio (0.9-28.9); Plasma Renin Activity 0.44 ng/mL/h (0.25-5.82)
== END 2024-09-29 08:21 | disposition home or self-care (01) ==
LOC: HO.HHCL 08:20
PROVIDERS: Emergency Medicine; Visit Provider Nurse Practitioner Primary Care
DX: I50.9 Heart failure, unspecified (principal); Z11.3 Encounter for screening for infections with a predominantly sexual mode of transmission; E27.8 Other specified disorders of adrenal gland; R53.83 Other fatigue; R45.84 Anhedonia; F11.20 Opioid dependence, uncomplicated
CPT/HCPCS: 36415; 80053; 80076; 82088; 82248; 83880; 85025; 86481; 86592

== ENCOUNTER 2024-10-06 13:02 | Outpatient (REF) | payer MEDICARE, SELFPAY ==
--- OUTSIDE RECORDS SUMMARY | 2024-10-06 13:58 | XMS_ITS | Encounter Summary ---
Author Organization [employer] Address [address] [facility] [address] 7[address] [place] [address] Care Team Providers Care Drop Hammer Setter Up Name Role Phone Caren Murphy Primary Care Provider [phone] Reason for Visit * Reason Comments Med Refill Encounter Details Date Type Department Care Team ([facility] st Contact Info) Description 04/07/[address] [facility] MEDICINE [address] [place] [address] Valencia Barnes MD [address] [place] [address] Uncomplicated opioid dependence (CMS/HCC) Social History Tobacco [...] Care Team (Late st Contact Info) Description 11/24/2024 10:30 AM EDT Office Visit [facility] MEDICINE [address] [place] [address] Jerod Pruett MD [address] [place] [address] 01/19/2025 1:30 PM EDT Office Visit [facility] OPTOMETRY [address] [place] [address] Janene Parks, DAVY [address] [place] [address] documented as of this encounter Visit Diagnoses Diagnosis Uncomplicated opioid dependence (CMS/HCC) documented in this encounter Additional Health Concerns Assessment Noted Time PHQ-9 Depression Total Score: 16 024 1:07 PM EDT documented as of this encounter Care Teams Drop Hammer Setter Up Relationship Specialty Start Date End Date Caren Murphy ANP [address] [place] [address] PCP - General Family Medicine 04/14/22 documented as of this encounter
--- OUTSIDE RECORDS SUMMARY | 2024-10-06 13:58 | XMS_ITS | Encounter Summary ---
Author Organization [employer] Address [address] [facility] [address] 7[address] [place] [address] Care Team Providers Care Coal Carrier Name Role Phone Murphy Caren AKHTAR Primary Care Provider [phone] Reason for Visit * Reason Comments Med Refill Encounter Details Date Type Department Care Team ([facility] st Contact Info) Description 02/11/2024 Refill [facility] MEDICINE [address] [place] [address] Jerod Pruett MD 230 [place] [address] Uncomplicated opioid dependence (CMS/HCC) Social History Tobacco [...] Description 11/24/2024 10:30 AM EDT Office Visit [facility] [address] [place] [address] Jerod Pruett MD [address] [place] [address] 01/19/2025 1:30 PM EDT Office Visit [facility] OPTOMETRY [address] [place] [address] Jnaene Parks, ADVY [address] [place] [address] documented as of this encounter Visit Diagnoses Diagnosis Uncomplicated opioid dependence (CMS/HCC) documented in this encounter Additional Health Concerns Assessment Noted Time PHQ-9 Depression Total Score: 16 024 1:07 PM EDT documented as of this encounter Care Teams Coal Carrier Relationship Specialty Start Date End Date Caren Murphy ANP [address] [place] [address] PCP - General Family Medicine 04/14/22 documented as of this encounter
--- OUTSIDE RECORDS SUMMARY | 2024-10-06 13:58 | XMS_ITS | Encounter Summary ---
Author Organization [employer] Address [address] 7[address] [place] [address] Care Team Providers Care Readiness Paraprofessional Name Role Phone Caren Murphy Primary Care Provider [phone] Reason for Visit * Reason Onset Date Comments Potassium Supplementation 09/29/2024 Encounter Details Date Type Department Care Team ([facility] st Contact Info) Description 09/29/2024 Telephone [facility] MEDICINE 230 [place], [place] [phone] Josephine Vallejo RN Potassium Supplementation Social History Tobacco Use Types Packs/Day Years [...] Answer Date Recorded Patient Health Questionnaire-9 Score 0 09/29/2024 Patient Health Questionnaire-9 Score 0 09/29/2024 Last PHQ-9: Questionnaire Data Not on file 0 09/29/2024 Housing Stability Answer Date Recorded What is [...] Date Recorded Patient Health Questionnaire-2 Score 0 09/29/2024 Comments Unknown Sex and Gender Information Value Date Recorded Sex Assigned at Female 06/18/2022 10:18 AM EDT Legal Sex Female 10:18 AM EDT Gender Identity Female 06/18/2022 10:18 AM EDT Sexual Orientation Don't know 06/18/2022 10 :18 AM EDT documented as of this encounter Miscellaneous Notes * Telephone Encounter - Josephine Vallejo RN - 09/29/2024 1:32 PM EST TC placed to pt in regards to lower potassium levels below as stated by PCP. Pt advised of potassium supplementation sent to the [facility] pharmacy and to picker and sorter load and unload at the soonest convenience. Pt to have repeat labs drawn in a week or so to recheck potassium levels. Pt stated understanding and had no further questions or concerns at this time. PCP Message Hypokalemia potassium 3.2 09/29/24 Does have Lasix on med list. Please ask patient to take potassium supplement for 5 days and then recheck BMP in 7-10 days. Thanks. documented in this encounter Plan of Treatment Upcoming Encounters Date Type Department Care Team (Late st Contact Info) Description 11/24/2024 10:30 AM EDT Office Visit [facility] MEDICINE [address] [place] [address] Jerod Pruett MD [address] [place] [address] 01/19/2025 1:30 PM EDT Office Visit [facility] OPTOMETRY [address] [place] [address] Janene Parks OD [address] [place] [address] documented as of this encounter Visit Diagnoses Not on filedocumented in this encounter Additional Health Concerns Assessment Noted Time PHQ-9 Depression Total Score: 0 09/29/19 25 8:54 AM EST documented as of this encounter Care Teams Readiness Paraprofessional Relationship Specialty Start Date End Date Caren Murphy ANP [address] [place] [address] PCP - General Family Medicine 04/14/22 documented as of this encounter
--- OUTSIDE RECORDS SUMMARY | 2024-10-06 13:58 | XMS_ITS | Encounter Summary ---
Author Organization [employer] Address [address] [facility] 7t [place] [address] Care Team Providers Care Editor In Chief Newspaper Name Role Phone Caren Murphy Primary Care Provider [phone] Encounter Details Date Type Department Care Team ([facility] Contact Info) Description 07/09/2024 Orders Only [facility] 230 [place] [address] Provider, MD Vineet Social History Tobacco Use [...] Description 11/24/2024 10:30 AM EDT Office Visit [facility] MEDICINE [address] [place] [address] Jerod Pruett MD [address] [place] [address] 01/19/2025 1:30 PM EDT Office Visit [facility] OPTOMETRY [address] [place] [address] Janene Parks, OD 230 [place] [address] documented as of this encounter Procedures Procedure [...] Noted Time PHQ-9 Depression Total Score: 16 10/31/ 024 1:07 PM EDT documented as of this encounter Care Teams Editor In Chief Newspaper Relationship Specialty Start Date End Date Caren Murphy ANP [address] [place] [address] PCP - General Family Medicine 04/14/22 documented as of this encounter
--- OUTSIDE RECORDS SUMMARY | 2024-10-06 13:58 | XMS_ITS | Encounter Summary ---
Author Organization [employer] Address [address] 7[address] [place] [address] Care Team Providers Care Spouter Name Role Phone Caren Murphy Primary Care Provider [phone] Encounter Details Date Type Department Care Team ([facility] st Contact Info) Description 09/29/2024 Orders Only [facility] MEDICINE [address] [place] [address] Caren uMrphy ANP [address] [place] [address] Hypokalemia (Primary Dx) Social History Tobacco Use Types Packs/Day Years [...] AM EDT documented as of this encounter Progress Notes * HERMILO Kahn - 09/29/2024 1:24 PM EST Hypokalemia potassium 3.2 09/29/24 Does have Lasix on med list. Please ask patient to take potassium supplement for 5 days and then recheck BMP in 7-10 days. Thanks. documented in this encounter Plan of Treatment Upcoming Encounters Date Type Department Care Team (Late st Contact Info) Description 11/24/2024 10:30 AM EDT Office Visit [facility] MED[facility]INE [address] [place] [address] Jerod Pruett MD [address] [place] [address] 01/19/2025 1:30 PM EDT Office Visit [facility] OPTOMETRY [address] [place] [address] Janene Parks, DAVY 230 [place] [address] documented as of this encounter Visit Diagnoses Diagnosis Hypokalemia- Primary Hypopotassemia documented in this encounter Additional Health Concerns Assessment Noted Time PHQ-9 Depression Total Score: 0 09/29/19 25 8:54 AM EST documented as of this encounter Care Teams Spouter Relationship Specialty Start Date End Date Caren Murphy ANP [address] [place] [address] PCP - General Family Medicine 04/14/22 documented as of this encounter
--- OUTSIDE RECORDS SUMMARY | 2024-10-06 13:58 | XMS_ITS | Encounter Summary ---
Author Organization [employer] Address [address] [facility] [address] 7t [place] [address] Care Team Providers Care Customer Support Agent Name Role Phone Murphy Caren AKHTAR Primary Care Provider [phone] Reason for Visit * Reason Comments Med Refill Encounter Details Date Type Department Care Team ([facility] st Contact Info) Description 07/02/2023 Refill [facility] MEDICINE [address] [place] [address] Jerod Pruett MD [address] [place] [address] Uncomplicated opioid dependence (CMS/HCC) Social History Tobacco [...] t he electric, gas, oil or water [employer] threatened to shut off services in your [...] Description 11/24/2024 10:30 AM EDT Office Visit [facility] MEDICINE [address] [place] [address] Jerod Pruett MD [address] [place] [address] 01/19/2025 1:30 PM EDT Office Visit [facility] OPTOMETRY [address] [place] [address] Janene Parks, OD [address] [place] [address] documented as of this encounter Visit Diagnoses Diagnosis Uncomplicated opioid dependence (CMS/HCC) documented in this encounter Care Teams Customer Support Agent Relationship Specialty Start Date End Date Caren Murphy ANP [address] [place] [address] PCP - General Family Medicine 04/14/22 documented as of this encounter
--- OUTSIDE RECORDS SUMMARY | 2024-10-06 13:58 | XMS_ITS | Encounter Summary ---
Author Organization [employer] Address [address] [facility] [address] 7[address] [place] [address] Care Team Providers Care Field Auditor Name Role Phone Jeffrey Caren AKHTAR Primary Care Provider [phone] Encounter Details Date Type Department Care Team (Late st Contact Info) Description 12/24/2023 Orders Only [facility] MEDICINE 230 [place] [address] Rhoda Muhammad RN Uncomplicated opioid dependence (CMS/HCC) [...] t he electric, gas, oil or water [employer] threatened to shut off services in your [...] 11/24/2024 10:30 AM EDT Office Visit [facility] MEDICINE [address] [place] [address] Jerod Pruett MD [address] [place] [address] 01/19/2025 1:30 PM EDT Office Visit [facility] OPTOMETRY [address] [place] [address] Charly, Janene, OD 230 [place] [address] Scheduled Orders Name Type Priority Associated Diagnoses [...] Load <15 NOT DETECTED NOT DETECTED IU/mL [facility] HCV Log PCR <1.18 NOT DETECTED NOT DETECTED Log IU/mL [facility] Comment:This test was perfor med using Real-Time Polymerase ChainReaction.Reportable Range: 15 IU/mL to 100,000,000 IU/mL(1.18 Log IU/mL to 8.00 Log IU/mL).The analytical performance characteristics of thisassay have been determined by [employer].The modifications have not been cleared or approved bythe FDA. This assay has been validated pursuant to theCLIA regulations and is used for clinical purposes.For more information on this test, go to:http://education.[employer]/faq/NFH22l8(This link is being provided for informational/educational purposes only.)THIS TEST WAS PERFORMED AT:[facility] [place] [id number] MARTINES MD 12/24/2023 11:2 6 AM EDT 12/25/2023 8:31 AM EDT us Jerod Pruett MD LAB BLOOD ORDERABLES Final Res ult [facility] [address] [place] [address] [phone] * HIV-1/2 Antigen and Antibodies, Fourth Generation, with Reflexes (12/24/2023 11:26 AM EDT) HIV AB/AG Nonreactive Nonreactive [facility] Comment:HIV-1 p24 Ag and/or HIV-1/HIV-2 Ab not detected.A test result that is nonreactive does not exclude thepossibility of exposure to or infection with HIV-1 and/orHIV-2. Nonreactive results in this assay for individualswith prior exposure to HIV-1 and/or HIV-2 may be due toantigen and antibody levels that are below the limit ofdetection of this assay.The [employer] HIV Ag/Ab Combo assay result andsupplemental assay results should be interpreted inconjunction with the patient's clinical presentation,history and other laboratory results. If the results areinconsistent with clinical evidence, additional testing issuggested to confirm the result. 12/24/2023 11:2 6 AM EDT 12/24/2023 1:16 PM EDT Jerod Pruett MD LAB BLOOD ORDERABLES Final Res ult Performing Organization Address [facility] de Phone Number [facility] [address] [place] [phone] * (ABNORMAL) Hepatitis C Antibody with Reflex to HCV, RNA, Quantitative, Real- Time PCR (12/24/2023 11:26 AM EDT) Hepatitis C Antibody Reactive( A) Nonreactive [facility] Comment:Presumptive evidence of antibodies to HCV. 12/24/2023 11:2 6 AM EDT 12/24/2023 1:16 PM EDT Jerod Pruett MD LAB BLOOD ORDERABLES Final Res ult Performing Organization Address [facility] Co de Phone Number [facility] [address] [place] [phone] documented in this encounter Visit Diagnoses Diagnosis Uncomplicated opioid dependence (CMS/HCC) documented in this encounter Additional Health Concerns Assessment Noted Time PHQ-9 Depression Total Score: 16 03/15/2 024 1:07 PM EDT documented as of this encounter Care Teams Field Auditor Relationship Specialty Start Date End Date Caren Murphy ANP [address] [place] [address] PCP - General Family Medicine 04/14/22 documented as of this encounter
--- OUTSIDE RECORDS SUMMARY | 2024-10-06 13:58 | XMS_ITS | Encounter Summary ---
Author Organization [facility] [employer] Address [address] [place] [address] Care Team Providers Care Group Counselor Name Role Phone Caren Murphy HERMILO Primary Care Provider [phone] Encounter Details Date Type Department Care Team (Latest Contact Info) Description 09/29/2024 Travel Social History Tobacco Use Types Packs/Day Years [...] Description 11/24/2024 10:30 AM EDT Office Visit [facility] MEDICINE [address] [place] [address] Jerod Pruett MD 230 [place] [address] 01/19/2025 1:30 PM EDT Office Visit [facility] OPTOMETRY [address] [place] [address] Charly, Janene, OD [address] [place] [address] documented as of this encounter Visit Diagnoses Not on filedocumented in this encounter Additional Health Concerns Assessment Noted Time PHQ-9 Depression Total Score: 0 09/29/19 25 8:54 AM EST documented as of this encounter Care Teams Group Counselor Relationship Specialty Start Date End Date Caren Murphy ANP [address] [place] [address] PCP - General Family Medicine 04/14/22 documented as of this encounter
--- OUTSIDE RECORDS SUMMARY | 2024-10-06 13:58 | XMS_ITS | Encounter Summary ---
Author Organization [employer] Address [address] [place] [address] Care Team Providers Care Field Marketer Name Role Phone Caren Murphy Primary Care Provider [phone] Encounter Details Date Type Department Care Team ([facility] st Contact Info) Description 09/29/2024 Orders Only [facility] MEDICINE [address] [place] [address] Caren Murphy ANP [address] [place] [address] Hypokalemia (Primary Dx) Social History Tobacco Use [...] Description 11/24/2024 10:30 AM EDT Office Visit [facility] MEDICINE [address] [place] [address] Jerod Pruett MD [address] [place] [address] 01/19/2025 1:30 PM EDT Office Visit [facility] OPTOMETRY [address] [place], [place] [phone] Janene Parks, OD [address] [place] [address] Scheduled Orders Name Type Priority Associated Diagnoses Orde r Schedule Basic Metabolic Panel Lab Routine Hypokalemia Expected: 09/29/2024 (Approximate), Expires: 09/29/2025 documented as of this encounter Visit Diagnoses Diagnosis Hypokalemia- Primary Hypopotassemia documented in this encounter Additional Health Concerns Assessment Noted Time PHQ-9 Depression Total Score: 0 09/29/19 25 8:54 AM EST documented as of this encounter Care Teams Field Marketer Relationship Specialty Start Date End Date Caren Murphy ANP [address] [place] [phone] PCP - General Family Medicine 04/14/22 documented as of this encounter
--- OUTSIDE RECORDS SUMMARY | 2024-10-06 13:58 | XMS_ITS | Encounter Summary ---
Author Organization [employer] Address [address] [facility] [address] [place] [address] Care Team Providers Care Biologist Name Role Phone Jeffrey Caren AKHTAR Primary Care Provider [phone] Encounter Details Date Type Department Care Team (Late st Contact Info) Description 12/23/2023 Orders Only [facility] MEDICINE [address] [place] [address] Rhoda Muhammad RN Social History Tobacco Use [...] Description 11/24/2024 10:30 AM EDT Office Visit [facility] MEDICINE [address] [place] [address] Jerod Pruett MD [address] [place] [address] 01/19/2025 1:30 PM EDT Office Visit [facility] OPTOMETRY [address] [place] [address] Charly, Janene, OD [address] [place] [address] documented as of this encounter Visit Diagnoses Not on filedocumented in this encounter Additional Health Concerns Assessment Noted Time PHQ-9 Depression Total Score: 16 024 1:07 PM EDT documented as of this encounter Care Teams Biologist Relationship Specialty Start Date End Date Caren Murphy ANP [address] [place] [address] PCP - General Family Medicine 04/14/22 documented as of this encounter
--- OUTSIDE RECORDS SUMMARY | 2024-10-06 13:58 | XMS_ITS | Clinical Summary ---
Author Organization [employer] Address [address] [place] [address] Care Team Providers Care Dedenter Name Role Phone Marianna Chow HERMILO Primary Care Provider [phone] Allergies Active Allergy Reactions Criticality Noted Date [...] by mouth at bedtime. Active nystatin (Mycostatin) 049029 UNIT/GM powder Apply topically every 12 (twelve) hours. To the affected area(s) Active Blood Pressure Monitoring (Blood Pressure Cuff) [facility] Fot htn. Please teach patient how to use and track BP Active Naloxone HCl (NARCAN NA) Administer into affected nostril(s). [place] 0.1 mL by intranasal route in 1 [...] eorder (will not trigger notification to Pharmacy)) potassium chloride CR (K-Tab) 20 MEQ ER tabletIndications :Hypokalemia Take 1 tablet (20 mEq) by mouth Once per day for 5 days. Do not crush, chew, or split. 5 tablet 025 2024 Active Problems Problem Noted Date Diagnosed Date [...] and mediastinal lymphadenectomy and s/p chemotherapy From [facility] 05/07/23, 05/21/23 (visit at which [...] history of coronary artery disease or prior [place]. She does have cardiac risk factors of morbid obesity, hypertension, smoking. Pharmacological nuclear stress test done on 03/28/2023 showing anterior rate and apical ischemia with fixed septal defect which could represent prior MA, these findings could also be seen in patients with left bundle branch block, EF 45%. She is on aspirin 81 mg daily, simvastatin 80 mg daily. [place] LDL goal less than 70. Heart failure [...] Encounters Date Type Department Care Team Description 09/29/2024 9:30 AM EST Office Visit [facility] [address] [place] [address] Jerod Pruett MD Opioid type dependence, continuous (CMS/HCC) (Primary Dx); Opioid use disorder in remission 09/29/2024 Telephone [facility] [address] [place] [address] Josephine Vallejo RN Potassium Supplementation 09/29/2024 Orders Only [facility] [address] [place] [address] Marianna Chow ANP Hypokalemia (Primary Dx) 09/29/2024 Orders Only [facility] [address] [place] [address] Marianna Chow ANP Hypokalemia (Primary Dx) 09/29/2024 Travel 09/23/2024 Refill [facility] [address] [place] [address] Rhoda Muhammad RN Uncomplicated opioid dependence (CMS/HCC) 09/18/2024 Refill [facility] [address] [place] [phone] Marianna Chow ANP Asthma-chronic obstructive pulmonary disease overlap syndrome (CMS/HCC) 08/26/2024 Refill [facility] [address] [place] [phone] Marianna Chow ANP Hyperlipidemia, unspecified hyperlipidemia type; Cardiomyopathy, unspecified type (CMS/HCC); Primary hypertension; Environmental and seasonal allergies; Constipation, unspecified constipation type 08/10/2024 Refill [facility] [address] [place] [phone] Marianna Chow ANP Asthma-chronic obstructive pulmonary disease overlap syndrome ([facility]/HCC) 08/04/2024 9:15 AM EST Office Visit [facility] [address] [place] [phone] Jerod Pruett MD Opioid use disorder in remission (Primary Dx); Uncomplicated opioid dependence ([facility]/HCC); Encounter for screening for infections with a predominantly sexual mode of transmission 08/04/2024 Travel 07/29/[address] [address] Marianna Chow ANP Appointment Request 07/27/2024 Refill [facility] [address] [place] [phone] Rhoda Muhammad RN Uncomplicated opioid dependence ([facility]) 07/09/2024 Orders Only [facility] [address] [place] [address] [phone] Provider, MD Vineet from Last 3 Months Immunizations Name Administration [...] Sign Reading Time Taken Comments Blood Pressure 132/79 09/29/2024 8:53 AM EST Pulse 98 09/29/2024 8:53 AM EST Temperature 36.5 ??C (97.7 ??F) 09/29/2024 8:53 AM ES T Respiratory Rate 20 09/29/2024 8:53 AM EST Oxygen Saturation 98% 01/31/2024 10:53 AM EDT Inhaled Oxygen Concentration - - Weight 118 kg (259 lb 9.6 oz) 01/31/2024 10:53 A M EDT Height 154.9 cm (5' 1 ) 01/31/2024 10:53 AM EDT Body Mass Index 49.05 01/31/2024 10:53 AM EDT Plan of Treatment Upcoming Encounters Date Type Department Care Team (Late st Contact Info) Description 11/24/2024 10:30 AM EDT Office Visit [facility] [address] [place] [address] Jerod Pruett MD [address] [place] [address] 01/19/2025 1:30 PM EDT Office Visit [facility] [address] [place] [address] Janene Parks, OD [address] [place] [address] Health Maintenance Due Date Last Done Comments [...] 08/28/2023 08/28/2022, 07/20, 07/25/2020, Additional history exists SDOH Screening 10/31/2024 11/01/2023 Alcohol/Substance Use Screening 01/30/2025 01/31/2024 Diabetes: Hemoglobin A1C 01/30/2025 024, 10/14/2020, 06/13/2020 Tobacco Screening 01/30/2025 01/31/2024 Depression Screening 09/29/2025 09/29/2024, 09/29/19 25 Cervical Cancer Screening 01/13/2026 HPV/Cotest 01/13/2026 01/13/2021 [...] topic Meningococcal Vaccine Aged Out No analisa chilanog eligible based on patient's age to complete this topic RSV under 20 months Aged Out No longe r eligible based on patient's age to complete this topic Rotavirus Vaccines Aged Out No longer eligible based on patient's age to complete this topic Procedures Procedure Name Priority Date/Time Associated Diagnosis Comments ALDOSTERONE/PLASMA RENIN ACTIVITY RATIO, LC/MS/MS Routine 09/29/2024 8:24 AM EST Adrenal mass, left (CMS/HCC) RPR (MONITOR) W/REFL TITER Routine 09/29/2024 8:24 AM EST Uncomplicated opioid dependence (CMS/HCC) Encounter for screening for infections with a predominantly sexual mode of transmission T-SPOT(R).TB Routine 09/29/2024 8:24 AM EST Uncomplicated opioid dependence (CMS/HCC) HEPATIC FUNCTION PANEL Routine 09/29/2024 8:24 AM EST Uncomplicated opioid dependence (CMS/HCC) COMPREHENSIVE METABOLIC PANEL Routine 09/29/2024 8:24 AM EST Chronic heart failure, unspecified heart failure type (CMS/HCC) Anhedonia B TYPE NATRIURETIC PEPTIDE (BNP) Routine 09/29/2024 8:24 AM EST Fatigue, unspecified type Chronic heart failure, unspecified heart failure type (CMS/HCC) Anhedonia CBC WITH AUTO DIFFERENTIAL Routine 09/29/2024 8:24 AM EST Fatigue, unspecified type Anhedonia POCT [place]-14 URINE DRUG SCREEN Routine 08/04/2024 [...] Recently Relevant to Health Maintenance Results * T-SPOT??.TB (09/29/2024 8:24 AM EST) T Spot TB Negative Negative [facility] Comment:A negative test resu lt does not exclude the possibilityof exposure to or infection with Mycobacteriumtuberculosis (M. tuberculosis). Patients with recentexposure to TB infected individuals exhibiting anegative T-SPOT.TB result should be considered forretesting within 6 weeks or if other relevant clinicalsymptoms indicate. Results from T-SPOT.TB testing mustbe used in conjunction with each individual'sepidemiological history, current medical status,and results of other diagnostic evaluations.The T-SPOT.TB test is qualitative and results arereported as positive, borderline, or negative, giventhat the test controls perform as expected. In linewith the Centers for Disease Control and Prevention's2010 recommendation to report quantitative measurementsalongside the qualitative result, the laboratoryprovides spot counts for informational purposes only.The T-SPOT.TB test should not be interpreted as aquantitative test. TS PANEL A 0 [facility] TS PANEL B 0 [facility] Negative Control Passed [facility] Positive Control Passed [facility] Comment:For additional infor matjohn, please refer tohttp://education.[employer].NearWoo/faq/KUN315(This link is being provided for informational/educational purposes only.)THIS TEST WAS PERFORMED AT:[employer] [id number] [place] [address]UTAJLFQTONA LEIJA MD,PHD 09/29/2024 8:24 AM EST 09/29/2024 10:51 AM EST us Jerod Pruett MD LAB BLOOD ORDERABLES Final Res ult Performing Organization Address City/[facility]/ZIP Co de Phone Number [facility] [address] [place] [phone] * Aldosterone/Plasma Renin Activity Ratio, LC/MS/MS (09/29/2024 8:24 AM EST) Aldosterone 9 see note ng/dL [facility] Comment:Unable to flag abnor mal result(s), please refer to reference range(s) below:Adult Reference Ranges for Aldosterone, LC/MS/MS: Upright 8:00 - 10:00 am < or = 28 ng/dL Upright 4:00 - 6:00 pm < or = 21 ng/dL Supine 8:00 - 10:00 am 3 - 16 ng/dLTHIS TEST WAS PERFORMED AT:[employer] [id number] [place] [address]AXUHLVBTONA LEIJA MD,PHD Plasma Renin Activity 0.44 0.25 - 5.82 ng/mL/h [facility] Aldosterone/Renin Ratio 20.5 0.9 - 28.9 Ratio [facility] Comment:This test was develo ped and its analytical performancecharacteristics have been determined by [facility] [place], [place]. It hasnot been cleared or approved by the U.S. Food and DrugAdministration. This assay has been validated pursuantto the CLIA regulations and is used for clinicalpurposes.THIS TEST WAS PERFORMED AT:[employer]/Guía [id number] [place] [address]CDAEPCCTONA LEIJA MD,PHD Blood Venous blood specimen / Unknown 09/29/2024 8:24 AM EST 09/29/2024 10:51 AM EST us Marianna AKHTAR LAB BLOOD ORDERABLES Final Resul t Performing Organization Address City/[facility]/ZIP Co de Phone Number [facility] [address] [place] [address] [place] [phone] * CBC auto differential (09/29/2024 8:24 AM EST) White Blood Count 6.8 4.8 - 10.8 X10*3/uL [facility] Red Blood Count 4.41 4.20 - 5.50 X10*6/uL [facility] Hemoglobin 13.1 12.0 - 16.0 g/dl [facility] Hematocrit 41.6 37.0 - 47.0 % [facility] Mean Corpuscular Volume 94.3 80.0 - 98.0 fL [facility] Mean Corpuscular Hemoglobin 29.7 27.0 - 33.0 pg [facility] Mean Corpuscular HGB Conc 31.5 31.0 - 35.0 g/dl [facility] Red Cell Distribution Width 14.0 11.0 - 16.0 % [facility] Platelet Count 217 160 - 400 X10*3/uL [facility] Mean Platelet Volume 11.5 9.4 - 12.3 fL [facility] Neutrophils Percent Auto 49.4 45 - 73 % [facility] Imm Gran Pct Auto 0.3 0.0 - 0.4 % [facility] Lymphocytes Percent Auto 40.0 20 - 40 % [facility] Monocytes Percent Auto 8.5 2 - 11 % [facility] Eosinophils Percent Auto 1.2 0 - 4 % [facility] Basophils Percent Auto 0.6 0 - 2 % [facility] NRBC Pct Auto 0.0 0.0 - 0.2 /100WBC [facility] Neutrophils Absolute Auto 3.4 2.0 - 8.3 x10*3/uL [facility] Imm Gran Abs Auto 0.02 0.00 - 0.03 X10*3/uL [facility] Lymphocytes Absolute Auto 2.7 1.2 - 4.9 X10*3/uL [facility] Monocytes Absolute Auto 0.6 0.1 - 1.2 X10*3/uL [facility] Eosinophils Absolute Auto 0.1 0.0 - 0.4 X10*3/uL [facility] Basophils Absolute Auto 0.0 0.0 - 0.2 X10*3/uL [facility] NRBC Abs Auto 0.000 0.0 - 0.012 X10*3/uL [facility] Blood Venous blood specimen / Unknown 09/29/2024 8:24 AM EST 09/29/2024 10:51 AM EST us Marianna AKHTAR LAB BLOOD ORDERABLES Final Resul t Performing Organization Address [facility] de Phone Number [facility] [address] [place] [address] [phone] * RPR (Monitor) with Reflex to??Titer (09/29/2024 8:24 AM EST) RPR (Monitor) w/Refl Titer NON-REACTI VE NON-REACT DEWEY [facility] Comment:THIS TEST WAS PERFOR MED AT:[facility] [place] [id number] MARTINES MD Rapid Plasma Reagin Ab Titer TNP [facility] Blood Venous blood specimen / Unknown 09/29/2024 8:24 AM EST 09/29/2024 10:51 AM EST us Jerod Pruett MD LAB BLOOD ORDERABLES Final Res ult Performing Organization Address [facility] Co de Phone Number [facility] [address] [place] [phone] * B Type Natriuretic Peptide (BNP) (09/29/2024 8:24 AM EST) B Type Natriuretic Peptide 15 <100 pg/mL [facility] Comment:For those patients w ho are being treated with Natrecor(nesiritide, recombinant BNP), BNP testing should beperformed at least two hours post treatment in order toensure that only endogenous levels of BNP are detected. Blood Venous blood specimen / Unknown 09/29/2024 8:24 AM EST 09/29/2024 10:51 AM EST Marianna AKHTAR LAB BLOOD ORDERABLES Final Resul t Performing Organization Address City/[facility]/ZIP Co de Phone Number [facility] [address] [place] [phone] * Hepatic Function Panel (09/29/2024 8:24 AM EST) Bilirubin, Direct 0.1 0.0 - 0.5 mg/dL [facility] Blood Venous blood specimen / Unknown 09/29/2024 8:24 AM EST 09/29/2024 10:51 AM EST us Jerod Pruett MD LAB BLOOD ORDERABLES Final Res ult Performing Organization Address [facility] Co de Phone Number [facility] [address] [place] [phone] * (ABNORMAL) Comprehensive Metabolic Panel (09/29/2024 8:24 AM EST) Sodium 146(H) 135 - 145 mmol/L [facility] Potassium 3.2(L) 3.3 - 5.1 mmol/L [facility] Chloride 104 96 - 108 mmol/L [facility] Carbon Dioxide 30(H) 22 - 29 mmol/L [facility] Anion Gap 15 12 - 20 [facility] Urea Nitrogen (BUN) 10 9 - 16 mg/dL [facility] Creatinine, Serum 0.66 0.5 - 1.4 mg/dL [facility] Estimated Glomerular Filt Rate >60 [facility] Comment:Chronic Kidney Disea se: Estimated GFR < 60 mL/min/[id number] Kidney Disease: Estimated GFR < 15 mL/min/1.73m2 Glucose 125(H) 60 - 115 mg/dL [facility] Calcium 9.4 8.4 - 10.2 mg/dL [facility] Bilirubin, Total 0.3 0.0 - 1.0 mg/dL [facility] Aspartate Amino Transferase 24 5 - 31 U/L [facility] Alanine Aminotransferase 13 0 - 31 U/L [facility] Total Protein 7.4 6.5 - 8.0 g/dL [facility] Albumin Level 3.9 3.5 - 5.0 g/dL [facility] Alkaline Phosphatase 89 39 - 117 U/L [facility] Blood Venous blood specimen / Unknown 09/29/2024 8:24 AM EST 09/29/2024 10:51 AM EST Marianna AKHTAR LAB BLOOD ORDERABLES Final Resul t [facility] [address] [place] [phone] * POCT [place]-14 Urine Drug Screen (08/04/2024 [...] Laterality Modality Computed Tomogra phy Historical Provider IMG CT PROCEDURES Final R esult * (ABNORMAL) Hemoglobin A1c (01/31/2024 1:09 PM EDT) Hemoglobin A1c 6.3(H) <6.0 % [facility] Comment:Hemoglobin A1C Refer ence Range Adults: 4.8 - 6.0 % Non diabetic: < 6.0 % Goal: < 7.0 %Additional Action Suggested: > 8.0 %Note: Hemoglobin A1c results are invalid for patients with abnormal amounts of HbF. Blood transfusions may impact the HbA1c concentration in the patient sample. Estimated Average Glucose 134 mg/dL [facility] Comment:eAG = Estimated ave rage glucose which is %A1C expressed asaverage glucose, using the formula of the F4G-HyugmfmJscvirx Glucose study (ADAG), Diabetes Care, Vol.31,#8,Mar. 2007 Blood Venous blood specimen / Unknown 01/31/2024 1:09 PM EDT 01/31/2024 4:11 PM EDT Marianna [facility] LAB BLOOD ORDERABLES Final Resul t [facility] [address] [place] [phone] * Lipid Panel, Standard (10/02/2022 12:24 PM EST) Triglycerides 99 mg/dL [facility] Comment:Desirable Triglyceri de: less than 150 mg/dLBorderline High Triglyceride 150-199 mg/dLHigh Triglyceride: 200-499 mg/dLVery High Triglyceride: greater than or equal to 5OO mg/dL Cholesterol 180 mg/dL [facility] Comment:Desirable Cholestero l: less than 200 mg/dLBorderline High Cholesterol: 200-239 mg/dLHigh Cholesterol: greater than 239 mg/dL LDL Cholesterol Calculated 106 mg/dl [facility] Comment:Desirable LDL: less than 100 mg/dLNear Optimal/Above Optimal LDL: 110- 129 mg/dLBorderline High LDL: 130-159 mg/dLHigh LDL: 160-189 mg/dLVery High LDL: greater than or equal to 190 mg/dL HDL Cholesterol 55 mg/dL [facility] Comment:Desirable HDL: great er than 40 mg/dL Note: This HDL assay may give artificially low results in patients with liver disease. 10/02/2022 12:2 4 PM EST 10/02/2022 12:24 PM EST us [facility] External Provider LAB BLO OD ORDERABLES Final Result [facility] [address] [place] [address] [phone] * BI Mammogram Screening Tomosynthesis Bilateral (08/28/2022 2:50 PM EST) Anatomical Region Laterality Modality Breast Bilateral Mammography 08/28/2022 2:50 PM EST Narrative 08/30/2022 9:45 AM EST ? [facility] [place] ? [address] ?[place] [address] ? Mammography Report ? Signed ? Patient: Rosalba Palacios ?MR#: [id number] ?? [id number] ? : 1960 ?Acct:[id number] ? Age/Sex: 62 / F ?ADM Date: 08/28/22 ? Loc: HO.MAMMO ? Attending Dr: Marianna Chow SAP PORTAL CONSULTANT ? Ordering Physician: MARIANNA CHOW NP ?Results: 2Benign Fin ?? dings ? Date of Service: 08/28/22 ?Follow Up: 1 Year From Orig ?? inal Mammogram ? Procedure(s): MM tomosynthesis screening BI ?? Accession Number(s): [id number] ? cc: CLAUDINE,MARIANNA JONES ? EXAMINATION: ?? MM SCREENING DIGITAL BREAST [...] signed by Almas Chi MD in OV> ?08/30/22 09 ? DD/ ? TD/TT: ? Cafeteria Cashier: CADET ? Procedure Note Ilir Mauro - 08/30/2022 [place] [facility] [address] [place], [place] [address] Mammography Report Signed Patient: Romario Kavita Moreno#: M [id number] : 9Acct:[id number] Age/Sex: 62 / FADM Date: 08/28/22 Loc: HO.MAMMO Attending Dr: Marianna Chow NP Ordering Physician: MARIANNA CHOW NPResults: 2Benign [place] Date of Service: 08/28/22Follow Up: 1 Year From Orig inal Mammogram Procedure(s): MM tomosynthesis screening BI Accession Number(s): [id number] cc: MARIANNA CHOW NP EXAMINATION: MM SCREENING [...] in OV> 08/30/22 0942 DD/ 1450 TD/TT: Cafeteria Cashier: CADET [facility] External Provider IMG BI PROCEDURES Final Result [...] historic and ?? current clinical information. ?? Dressage Judge : [facility] Comment: GSG, CT(ASCP) CT screening location: [address] ??[id number] Interpretation/R esult: Negative for intraepithelial lesion or malignancy. [facility] LMP: NONE [facility]IV[facility] Prev. BX: NONE [facility]IVEN [facility] Prev. PAP: NONE [facility]IVEN [facility] SOURCE: None given [facility] Statement Of Adequacy: [facility] Comment: Satisfactory for evaluation. Endocervical/transformation zone component absent. 01/13/2021 10:0 2 AM EDT us Remedios Lobo BONDERITE OPERATOR LAB PATHOLOGY ORDERABLES Final Result [facility] [address] * HPV mRNA E6/E7 (01/13/2021 10:02 AM EDT) HPV nRNA E6/E7 Not Detected Not Detected [facility] Comment: Methodology: Educational Therapist-Mediated Amplification This assay detects E6/E7 viral messenger RNA (mRNA) from 14 high-risk HPV types (16,18,31,33,35,39,45,51,52,56,58,59,66,68). ? The analytical performance characteristics of this assay have been determined by [employer]. The modifications have not been cleared or approved by the FDA. This assay has been validated pursuant to the CLIA regulations and is used for clinical purposes. ?? For additional information, please refer to http://education.[employer]/faq/UWR771i5 (This link if provided for information/ educational purposes only.) 01/13/2021 10:0 2 AM EDT Remedios Yamil BONDERITE OPERATOR LAB BLOOD ORDERABLES Final Res ult [facility] [address] [place] [address], * Colonoscopy (04/19/2016) [facility] Signature Colonoscopy Normal Normal Historical Provider MD HEALTH MAINTENANCE Final Result from Last 3 Months or Most Recently Relevant to Health Maintenance Insurance MEDICARE [facility] Care Teams Dedenter Relationship Specialty Start Date End Date Marianna Chow ANP [address] [place] [phone] PCP - General Family Medicine 04/14/22
--- OUTSIDE RECORDS SUMMARY | 2024-10-06 13:58 | XMS_ITS | Encounter Summary ---
Author Organization [employer] Address [address] [place] [address] Care Team Providers Care Forensic Ballistics Expert Name Role Phone Jeffrey Caren AKHTAR Primary Care Provider [phone] Reason for Visit * Reason Onset Date Comments Med Refill 09/23/2024 Encounter Details Date Type Department Care Team (Late st Contact Info) Description 09/23/2024 Refill [facility] [address] [place] [address] Rhoda Muhammad RN Uncomplicated opioid dependence (CMS/HCC) [...] 10:30 AM EDT Office Visit [facility] [address] [place] [address] Jerod Pruett MD [address] [place] [address] 01/19/2025 1:30 PM EDT Office Visit [facility] [address] [place] [address] Charly, Janene, OD [address] [place] [address] documented as of this encounter Visit Diagnoses Diagnosis Uncomplicated opioid dependence (CMS/HCC) documented in this encounter Additional Health Concerns Assessment Noted Time PHQ-9 Depression Total Score: 16 024 1:07 PM EDT documented as of this encounter Care Teams Forensic Ballistics Expert Relationship Specialty Start Date End Date Caren Murphy ANP [address] [place] [address] PCP - General Family Medicine 04/14/22 documented as of this encounter
--- OUTSIDE RECORDS SUMMARY | 2024-10-06 13:58 | XMS_ITS | Encounter Summary ---
Author Organization [employer] Address [address] [facility] [address] 7[address] [place] [address] Care Team Providers Care Loan Coordinator Name Role Phone Murphy Caren AKHTAR Primary Care Provider [phone] Reason for Visit * Reason Comments Med Refill Encounter Details Date Type Department Care Team ([facility] st Contact Info) Description 10/14/2023 Refill [facility] MEDICINE [address] [place] [address] Jerod Pruett MD [address] [place] [address] Uncomplicated opioid dependence (CMS/HCC) Social History Tobacco [...] t he electric, gas, oil or water [employer] threatened to shut off services in your [...] Description 11/24/2024 10:30 AM EDT Office Visit [facility] MEDICINE [address] [place] [address] Jerod Pruett MD [address] [place] [address] 01/19/2025 1:30 PM EDT Office Visit [facility] OPTOMETRY [address] [place] [address] Janene Parks, OD 230 [place] [address] documented as of this encounter Visit Diagnoses Diagnosis Uncomplicated opioid dependence (CMS/HCC) documented in this encounter Care Teams Loan Coordinator Relationship Specialty Start Date End Date Caren Murphy ANP [address] [place] [address] PCP - General Family Medicine 04/14/22 documented as of this encounter
--- OUTSIDE RECORDS SUMMARY | 2024-10-06 13:58 | XMS_ITS | Encounter Summary ---
Author Organization [employer] Address [address] [facility] [address] 7[address] [place] [address] Care Team Providers Care Visual Journalist Name Role Phone Jeffrey Caren AKHTAR Primary Care Provider [phone] Reason for Visit * Reason Comments OBAT F/U Encounter Details Date Type Department Care Team ([facility] st Contact Info) Description 09/29/2024 9:30 AM EST Office Visit [facility] MEDICINE [address] [place] [address] Jerod Pruett MD [address] [place] [address] Opioid type dependence, continuous (CMS/HCC) (Primary Dx); Opioid use disorder in remission Social History Tobacco Use Types Packs/Day Years [...] the past 12 months, has t he [place], gas, oil or water [employer] threatened to shut off services in your [...] AM EDT documented as of this encounter Last Filed Vital Signs Vital Sign Reading Time Taken Comments Blood Pressure 132/79 09/29/2024 8:53 AM EST Pulse 98 09/29/2024 8:53 AM EST Temperature 36.5 ??C (97.7 ??F) 09/29/2024 8:53 AM ES T Respiratory Rate 20 09/29/2024 8:53 AM EST Oxygen Saturation - - Inhaled Oxygen Concentration - - Weight - - Height - - Body Mass Index - - documented in this encounter Progress Notes * Jerod Pruett MD - 09/29/2024 9:30 AM EST Patient ID: Rosalba Moreno is a 64 y.o. female. She is here today for Opioid Dependence RV. Patient on current Suboxone dose of 12/3 mg daily now on a 8 weeks appointment schedule. Inductiondate of 03/05/13 08/04/24 Utox BUP, THC Report she is doing well. Her 4 month old grandson is babbling a lot. She has other grandchildren but this is the first one she will see grow. She will be having thyroid surgery-? When. No ADRs. She does not smoke (former smoker). Celebrated Thanksgiving with family and will do same for [place] Children doing well. Sees that her son is very involved with newest grandson. Daughter is stewardess for [employer]. No sexual relations for many years. Agrees to do labs. As above. Continues to do well. Seems happy. Agrees to labs. F/U 8 weeks. Today 09/29/24 Utox BUP THC Doing well. Her grandson is a gift from [employer]. He is almost 6 months old. Her daughter's first child. As noted last week, daughter is a stewardess and her son in law is training to be donkey engine firer/fireman. They live with her. Makes her very happy. He is a [employer]. His name is Lauren which is also his [employer] sign. Reports she did her labs today. Rare alcohol. No tobacco. THC some puffs at night. Another thyroid biopsy in ~ 1 month. Will also need a kidney biopsy. No ADRs. Objective Physical Exam Constitutional: Appearance: She is obese. Neurological: Mental Status: She is alert and oriented to person, place, and time. Psychiatric: Mood and Affect: Mood normal. Behavior: Behavior normal. Thought Content: Thought content normal. Assessment/Plan Opioid use disorder in remission Utox BUP THC Doing well. Her grandson is a gift from [employer]. He is almost 6 months old. Her daughter's first child. As noted last week, she is a stewardess and her son in law is training to be donkey engine firer/fireman. They live with her. Makes her very happy. He is a [employer]. His name is Lauren which is also his [employer] sign. Reports she did her labs today. Rare alcohol. No tobacco. THC some puffs at night. Another thyroid biopsy in ~ 1 month. Will also need a kidney biopsy. No ADRs. As above. Doing well. Did labs. F/U 8 weeks. Diagnoses and all orders for this visit: Opioid use disorder in remission This information has been disclosed to you from records protected by federal confidentiality rules(42 CFR Part 2). The federal rules prohibit you from making any further disclosure of information in this record that identifies a patient as having or having had a substance use disorder either directly, by reference to publicly available information, or through verification of such identificationby another person unless further disclosure is expressly permitted by the written consent of the individual whose information is being disclosed or as otherwise permitted by (see 2.3.1). The federal rules restrict any use of the information to investigate or prosecute with regard to a crime any patient with a substance use disorder, except as provided at 2.12??(5) and 2.65. documented in this encounter Plan of Treatment Upcoming Encounters Date Type Department Care Team (Late st Contact Info) Description 11/24/2024 10:30 AM EDT Office Visit [facility] MEDICINE [address] [place] [address] Jerod Pruett MD [address] [place] [address] 01/19/2025 1:30 PM EDT Office Visit [facility] OPTOMETRY [address] [place], [place] [phone] Janene Parks OD 230 [place] [address] Scheduled Orders Name Type Priority Associated Diagnoses Orde r Schedule POCT [place]-14 Urine Drug Screen Point of Care Testing Routine Opioid type dependence, continuous ([facility]) Ordered: 09/29/2024 documented as of this encounter Visit Diagnoses Diagnosis Opioid type dependence, continuous (CMS/HCC)- Primary Opioid type dependence, continuous Opioid use disorder in remission documented in this encounter Additional Health Concerns Assessment Noted Time PHQ-9 Depression Total Score: 0 09/29/19 25 8:54 AM EST documented as of this encounter Care Teams Visual Journalist Relationship Specialty Start Date End Date Caren Murphy ANP [address] [place] [address] PCP - General Family Medicine 04/14/22 documented as of this encounter
--- OUTSIDE RECORDS SUMMARY | 2024-10-06 13:58 | XMS_ITS | Encounter Summary ---
Author Organization [employer] Address [address] [facility] [address] [place] [address] Care Team Providers Care Model Artists' Name Role Phone Caren Murphy Primary Care Provider [phone] Reason for Visit * Reason Comments Med Refill Encounter Details Date Type Department Care Team ([facility] st Contact Info) Description 09/18/2024 Refill [facility] MEDICINE [address] [place] [address] Caren Murphy ANP [address] [place] [address] Asthma-chronic obstructive pulmonary disease overlap syndrome (CMS/HCC) [...] 11/24/2024 10:30 AM EDT Office Visit [facility] MEDICINE [address] [place] [address] Jerod Pruett MD [address] [place] [address] 01/19/2025 1:30 PM EDT Office Visit [facility] OPTOMETRY [address] [place] [address] Janene Parks, DAVY [address] [place] [address] documented as of this encounter Visit Diagnoses Diagnosis Asthma-chronic obstructive pulmonary disease overlap syndrome (CMS/HCC) documented in this encounter Additional Health Concerns Assessment Noted Time PHQ-9 Depression Total Score: 16 024 1:07 PM EDT documented as of this encounter Care Teams Model Artists' Relationship Specialty Start Date End Date Caren Murphy ANP [address] [place] [address] PCP - General Family Medicine 04/14/22 documented as of this encounter
--- OUTSIDE RECORDS SUMMARY | 2024-10-06 13:58 | XMS_ITS | Clinical Summary ---
Author Organization [facility] [address] [facility] Address [address] [place] [address] Phone Care Team Providers Care Manager Applied Name Role Phone Martín De Santiago MD Primary Care Provider [phone] Allergies No known active allergies Medications albuterol [...] She was referred to medical onocology at [facility] and completed 8 cycles of adjuvant chemotherapy and denies any immunotherapy. Her most recent chest CT scan which was performed on 07/06/2024 at [facility] and shows no new or worsening pulmonary [...] is a 63-year-old female previously in the [facility] lung cancer screening program who on May 07, 2023 had a da Missy robotic right upper lobectomy and mediastinal lymphadenectomy for stage [id number] or stage Ib adenocarcinoma. ?? Patient will be referred to medical oncology at [facility] for discussion of possible adjuvant chemotherapy or [...] results which should both take place at [facility]. ?? While patient was in office today [...] AM EST Office Visit [facility] [place] [address] [facility] [address] [place] [phone] Sourav Benitez, PA History of lung cancer (Primary Dx); Adrenal mass (CMS/HCC) 07/06/2024 10:30 AM EST - 07/06/2024 11:59 PM EST Hospital Encounter [facility] CT Scan [address] [place] [id number] Hx of cancer of lung Discharge Disposition: Home or Self Care from Last 3 Months Surgical History Surgery Date Site/Laterality Comments CARDIAC CATHETERIZATION N/A PROCEDURE: HISTORICAL CARDIAC CATH SECTION N/A PROCEDURE: HISTORICAL DELIVERY COLONOSCOPY N/A PROCEDURE: HISTORICAL COLONOSCOPY BREAST BIOPSY Right PROCEDURE: [place] BIOPSY BREAST OPEN INCISIONAL TUBAL LIGATION PROCEDURE: HISTORICAL TUBAL LIGATION OTHER SURGICAL HISTORY 05/07/2023 Right PROCEDURE: [place] THORACOSCOPY W/LOBECTOMY SINGLE LOBE; COMMENT: RUL wedge THYROID BIOPSY 07/10/2024 at [facility] Medical History Medical History Date Comments Hepatitis [...] Info) Description 01/19/2025 3:00 PM EDT Appointment [facility] CT Scan [address] [place] [address] Health Maintenance Due Date Last [...] - Risk 60-74 years 1-dose series) 2019 Colorectal Cancer Screening: Colonoscopy 09/17/2023 Hepatitis C Screening 09/17/2023 Medicare Annual Wellness Visit 09/17/2023 Osteoporosis Screening (Bone Density Screening) 09/17/2023 Social Influencers of Health Screening 09/17/2023 Falls Risk Assessment 2024 Hypertension/CHF/CAD Annual BMP Blood Test 07/06/2024 Breast Cancer Screening 08/28/2024 08/28/2022 Depression Screening 10/31/2024 11/01/2023 Cholesterol Screening (Lipid Panel) 10/02/2027 10/02/2022 DTaP,Tdap,and Td Vaccines (3 - Td or Tdap) 09/09/2030 09/09/2020, 05/18/2005 Hepatitis A Vaccines Completed 09/08/2019, 02/18/20 19 [...] Signed Date: 07/07/2024 17:07 ET Workstation ID: [id number] Transcribed By: Self Edit Transcribed Date: 07/07/2024 [...] Signed Date: 07/07/2024 17:07 ET Workstation ID: [id number] Transcribed By: Self Edit Transcribed Date: 07/07/2024 16:56 ET us Danilo Hawk MD IMG CT PROCEDURES Final Result from Last 3 Months Insurance MEDICARE MEDICAID - [place] Care Teams Manager Applied Relationship Specialty Start Date End Date Martín De Santiago MD [address] [address] PCP - General Internal Medicine 06/02/24
--- OUTSIDE RECORDS SUMMARY | 2024-10-06 13:58 | XMS_ITS | Encounter Summary ---
Author Organization [employer] [facility] Address [address] [facility] [facility] [address] [place] [address] Care Team Providers Care Knockdown Man Name Role Phone Caren Murphy Primary Care Provider [phone] Reason for Visit * Reason Comments Med Refill Encounter Details Date Type Department Care Team (Late Contact Info) Description 11/17/2022 Refill [facility] MEDICINE [address] [place] [address] [phone] Jerod Pruett MD [address] [place] [address] [phone] Uncomplicated opioid dependence (CMS/HCC) Social History Tobacco [...] Department Care Team (Late Contact Info) Description 11/24/2024 10:30 AM EDT Office Visit [facility] MEDICINE [address] [place] [address] [phone] Jerod Pruett MD [address] [place] [address] [phone] 01/19/2025 1:30 PM EDT Office Visit [facility] OPTOMETRY [address] [place], [place] [phone] Janene Parks OD [address] [place] [address] documented as of this encounter Visit Diagnoses Diagnosis Uncomplicated opioid dependence (CMS/HCC) documented in this encounter Care Teams Knockdown Man Relationship Specialty Start Date End Date Caren Murphy ANP [address] [place], [place] [phone] PCP - General Family Medicine 04/14/22 documented as of this encounter
--- OUTSIDE RECORDS SUMMARY | 2024-10-06 13:58 | XMS_ITS | Encounter Summary ---
Author Organization [employer] Address [address] [facility] [address] [place] [address] Care Team Providers Care Surveillance Observer Name Role Phone Murphy Caren AKHTAR Primary Care Provider Reason for Visit * Reason Comments Med Refill Encounter Details Date Type Department Care Team ([facility] st Contact Info) Description 06/02/2024 Refill [facility] MEDICINE [address] [place] [address] Jerod Pruett MD [address] [place] [address] Uncomplicated opioid dependence (CMS/HCC) Social History Tobacco [...] 11/24/2024 10:30 AM EDT Office Visit [facility] MEDICINE [address] [place] [address] Jerod Pruett MD [address] [place] [address] 01/19/2025 1:30 PM EDT Office Visit [facility] OPTOMETRY [address] [place] [address] Janene Parks, DAVY [address] [place] [address] documented as of this encounter Visit Diagnoses Diagnosis Uncomplicated opioid dependence (CMS/HCC) documented in this encounter Additional Health Concerns Assessment Noted Time PHQ-9 Depression Total Score: 16 024 1:07 PM EDT documented as of this encounter Care Teams Surveillance Observer Relationship Specialty Start Date End Date Caren Murphy ANP [address] [place] [address] PCP - General Family Medicine 04/14/22 documented as of this encounter
[2024-10-06 16:40] LABS: Anion Gap 13 (12-20); Blood Urea Nitrogen 16 mg/dL (9-16); Calcium 9.8 mg/dL (8.4-10.2); Carbon Dioxide 35 mmol/L (22-29); Chloride 102 mmol/L (96-108); Estimated Glomerular Filt Rate > 60; Glucose Random 141 mg/dL (60-115); Potassium 4.2 mmol/L (3.3-5.1); Sodium 146 mmol/L (135-145)
== END 2024-10-06 13:03 | disposition home or self-care (01) ==
LOC: HO.HHCL 13:02
PROVIDERS: Visit Provider Nurse Practitioner Primary Care
DX: E87.6 Hypokalemia (principal)
CPT/HCPCS: 36415; 80048

== ENCOUNTER 2024-10-13 15:15 | Outpatient (REF) | payer MEDICARE, SELFPAY ==
--- NOTE | ~2024-10-13 | CT_ITS ---
CLINICAL HISTORY: adrenal mass of L, mean attenuation of [address] abdomen and pelvis with and without contrast Comparison: None Findings: The lung bases are clear. Left adrenal nodule precontrast: 24 Hounsfield units Left adrenal nodule postcontrast: 38 Hounsfield Left adrenal nodule, 10 minute delay: 24 Hounsfield units Absolute washout: 100%. The visualized portions of the liver, gallbladder, spleen, right adrenal gland, pancreas, kidneys and bowel demonstrate no acute process. Moderate atherosclerotic disease. Impression: Benign left adrenal adenoma. This document has been electronically signed by: Pranav Newton MD on 10/14/2024 10:58:41
[2024-10-13] MEDS: iohexoL 350 MG/ML 75 ML INFUS..BTL 85 ML IV (17:02)
--- OUTSIDE RECORDS SUMMARY | 2024-10-13 19:02 | XMS_ITS | Encounter Summary ---
Author Organization [employer] Address [address] [facility] 7t [place] [address] Care Team Providers Care Clinical Microbiologist Name Role Phone Caren Murphy Primary Care Provider [phone] Encounter Details Date Type Department Care Team ([facility] Contact Info) Description 07/09/2024 Orders Only [facility] [address] [place] [address] Provider, MD Vineet Social History Tobacco Use [...] Description 11/24/2024 10:30 AM EDT Office Visit [facility] [address] [place] [address] Jerod Pruett MD [address] [place] [address] documented as of this encounter Procedures Procedure [...] documented as of this encounter Care Teams Clinical Microbiologist Relationship Specialty Start Date End Date Caren Murphy ANP [address] [place] [address] PCP - General Family Medicine 04/14/22 documented as of this encounter
--- OUTSIDE RECORDS SUMMARY | 2024-10-13 19:02 | XMS_ITS | Encounter Summary ---
Author Organization [employer] Address [address] [facility] [address] [place] [address] Care Team Providers Care Lead Retail Sales Associate Name Role Phone Murphy Caren AKHTAR Primary Care Provider [phone] Reason for Visit * Reason Comments Med Refill Encounter Details Date Type Department Care Team ([facility] st Contact Info) Description 06/02/2024 Refill [facility] MEDICINE [address] [place] [address] Jerod Pruett MD [address] [place] [address] Uncomplicated opioid dependence (CMS/HCC) Social History Tobacco [...] 10:30 AM EDT Office Visit [facility] MEDICINE [address] [place] [address] Jerod Pruett MD [address] [place] [address] documented as of this encounter Visit Diagnoses Diagnosis Uncomplicated opioid dependence (CMS/HCC) documented in this encounter Additional Health Concerns Assessment Noted Time PHQ-9 Depression Total Score: 16 024 1:07 PM EDT documented as of this encounter Care Teams Lead Retail Sales Associate Relationship Specialty Start Date End Date Caren Murphy ANP [address] [place] [address] PCP - General Family Medicine 04/14/22 documented as of this encounter
--- OUTSIDE RECORDS SUMMARY | 2024-10-13 19:02 | XMS_ITS | Encounter Summary ---
Author Organization [employer] Address [address] [facility] [address] [place] [address] Care Team Providers Care Community Living Specialist Name Role Phone Caren Murphy Primary Care Provider [phone] Reason for Visit * Reason Comments Med Refill Encounter Details Date Type Department Care Team ([facility] st Contact Info) Description 04/07/2024 Refill [facility] MEDICINE [address] [place] [address] Valencia Barnes MD [address] [place] [address] Uncomplicated opioid dependence (CMS/HCC) Social History Tobacco [...] [facility] MEDICINE [address] [place] [address] Jerod Pruett MD [address] [place] [address] documented as of this encounter Visit Diagnoses Diagnosis Uncomplicated opioid dependence (CMS/HCC) documented in this encounter Additional Health Concerns Assessment Noted Time PHQ-9 Depression Total Score: 16 024 1:07 PM EDT documented as of this encounter Care Teams Community Living Specialist Relationship Specialty Start Date End Date Caren Murphy ANP [address] [place] [address] PCP - General Family Medicine 04/14/22 documented as of this encounter
--- OUTSIDE RECORDS SUMMARY | 2024-10-13 19:02 | XMS_ITS | Encounter Summary ---
Author Organization [employer] Address [address] [place] [address] Care Team Providers Care Burial Vault Deliverer And Installer Name Role Phone Jeffrey Caren AKHTAR Primary Care Provider [phone] Encounter Details Date Type Department Care Team (Late st Contact Info) Description 12/23/2023 Orders Only [facility] MEDICINE [address] [place] [address] Rhoda Muhammad RN Social History Tobacco Use [...] Description 11/24/2024 10:30 AM EDT Office Visit [facility] MEDICINE [address] [place] [address] Jerod Pruett MD [address] [place] [address] documented as of this encounter Visit Diagnoses Not on filedocumented in this encounter Additional Health Concerns Assessment Noted Time PHQ-9 Depression Total Score: 16 024 1:07 PM EDT documented as of this encounter Care Teams Burial Vault Deliverer And Installer Relationship Specialty Start Date End Date Caren Murphy ANP [address] [place] [address] PCP - General Family Medicine 04/14/22 documented as of this encounter
--- OUTSIDE RECORDS SUMMARY | 2024-10-13 19:02 | XMS_ITS | Encounter Summary ---
Author Organization [employer] Address [address] [place] [address] Care Team Providers Care Manager Audit Name Role Phone Jeffrey Caren AKHTAR Primary Care Provider [phone] Reason for Visit * Reason Comments OBAT F/U Encounter Details Date Type Department Care Team ([facility] st Contact Info) Description 09/29/2024 9:30 AM EST Office Visit [facility] MEDICINE [address] [place] [address] Jerod Pruett MD [address] [place] [address] Opioid type dependence, continuous (CMS/HCC) (Primary Dx); [...] the past 12 months, has t he [employer], gas, oil or water [employer] threatened to shut off services in your [...] with family and will do same for [place] Children doing well. Sees that her son is very involved with newest grandson. Daughter is stewardess for [employer]. No sexual relations for many years. Agrees to do labs. As above. Continues to do well. Seems happy. Agrees to labs. F/U 8 weeks. Today 09/29/24 Utox BUP THC Doing well. Her grandson is a gift from [employer]. He is almost 6 months old. Her daughter's first child. As noted last week, daughter is a stewardess and her son in law is training to be water and fire technician. They live with her. Makes her very happy. He is a [employer]. His name is Lauren which is also his [employer] sign. Reports she did her labs today. [...] well. Her grandson is a gift from [employer]. He is almost 6 months old. Her daughter's first child. As noted last week, she is a stewardess and her son in law is training to be water and fire technician. They live with her. Makes her very happy. He is a [employer]. His name is Lauren which is also his [employer] sign. Reports she did her labs today. [...] Description 11/24/2024 10:30 AM EDT Office Visit [facility] MEDICINE [address] [place] [address] Jerod Pruett MD [address] [place] [address] Scheduled Orders Name Type Priority Associated Diagnoses Orde r Schedule POCT [place]-14 Urine Drug Screen Point of Care Testing Routine Opioid type dependence, continuous (CMS/HCC) Ordered: 09/29/2024 documented as of this encounter Visit Diagnoses Diagnosis Opioid type dependence, continuous (CMS/HCC)- Primary Opioid type dependence, continuous Opioid use disorder in remission documented in this encounter Additional Health Concerns Assessment Noted Time PHQ-9 Depression Total Score: 0 09/29/19 25 8:54 AM EST documented as of this encounter Care Teams Manager Audit Relationship Specialty Start Date End Date Caren Murphy ANP [address] [place] [address] PCP - General Family Medicine 04/14/22 documented as of this encounter
--- OUTSIDE RECORDS SUMMARY | 2024-10-13 19:02 | XMS_ITS | Clinical Summary ---
Author Organization [facility] [address] [facility] Address [address] [place] [address] Phone Care Team Providers Care Cardiothoracic Physiotherapist Name Role Phone Martín De Santiago MD Primary Care Provider [phone] Allergies No known active allergies Medications albuterol [...] She was referred to medical onocology at [facility] and completed 8 cycles of adjuvant chemotherapy and denies any immunotherapy. Her most recent chest CT scan which was performed on 07/06/[address] [facility] and shows no new or worsening pulmonary [...] is a 63-year-old female previously in the [facility] lung cancer screening program who on May 07, 2023 had a da Missy robotic right upper lobectomy and mediastinal lymphadenectomy for stage [id number] or stage Ib adenocarcinoma. ?? Patient will be referred to medical oncology at [facility] for discussion of possible adjuvant chemotherapy [...] results which should both take place at [facility]. ?? While patient was in office today [...] AM EST Office Visit Thoracic Surgery - [address] [address] Sourav Benitez PA History of lung cancer (Primary Dx); Adrenal mass (CMS/HCC) from Last 3 Months Surgical History Surgery Date Site/Laterality Comments CARDIAC CATHETERIZATION N/A PROCEDURE: HISTORICAL CARDIAC CATH SECTION N/A PROCEDURE: HISTORICAL DELIVERY COLONOSCOPY N/A PROCEDURE: HISTORICAL COLONOSCOPY BREAST BIOPSY Right PROCEDURE: ME BIOPSY BREAST OPEN INCISIONAL TUBAL LIGATION PROCEDURE: HISTORICAL TUBAL LIGATION OTHER SURGICAL HISTORY 05/07/2023 Right PROCEDURE: ME THORACOSCOPY W/LOBECTOMY SINGLE LOBE; COMMENT: RUL wedge THYROID BIOPSY 07/10/2024 at [facility] Medical History Medical History Date Comments [...] Info) Description 01/19/2025 3:[address] [facility] CT Scan [address] [place] [address] Health Maintenance Due Date Last [...] on patient's age to complete this topic Insurance MEDICARE [place]ICAID - [place] Care Teams Cardiothoracic Physiotherapist Relationship Specialty Start Date End Date Martín De Santiago MD [address] [address] PCP - General Internal Medicine 06/02/24
--- OUTSIDE RECORDS SUMMARY | 2024-10-13 19:02 | XMS_ITS | Encounter Summary ---
Author Organization [employer] Address [address] [place] [address] Care Team Providers Care Fireworks Display Specialist Name Role Phone Caren Murphy Primary Care Provider [phone] Reason for Visit * Reason Comments Med Refill Encounter Details Date Type Department Care Team ([facility] st Contact Info) Description 09/18/2024 Refill [facility] MEDICINE [address] [place] [address] Caren Murphy ANP [address] [place] [address] Asthma-chronic obstructive pulmonary disease overlap syndrome (CMS/HCC) [...] Description 11/24/2024 10:30 AM EDT Office Visit [facility] MEDICINE [address] [place] [address] Jerod Pruett MD [address] [place] [address] documented as of this encounter Visit Diagnoses Diagnosis Asthma-chronic obstructive pulmonary disease overlap syndrome (CMS/HCC) documented in this encounter Additional Health Concerns Assessment Noted Time PHQ-9 Depression Total Score: 16 024 1:07 PM EDT documented as of this encounter Care Teams Fireworks Display Specialist Relationship Specialty Start Date End Date Caren Murphy ANP [address] [place] [address] PCP - General Family Medicine 04/14/22 documented as of this encounter
--- OUTSIDE RECORDS SUMMARY | 2024-10-13 19:02 | XMS_ITS | Encounter Summary ---
Author Organization [employer] Address [address] [place] [address] Care Team Providers Care Forming Acid Dumper Name Role Phone Caren Murphy Primary Care Provider Reason for Visit * Reason Onset Date Comments Results 10/13/2024 Encounter Details Date Type Department Care Team ([facility] Contact Info) Description 10/13/2024 Telephone [facility] MEDICINE [address] [place] [address] Caren Murphy ANP [address] [place] [address] Results Social History Tobacco Use Types Packs/Day Years [...] encounter Miscellaneous Notes * Telephone Encounter - Tyesha Contreras RN - 10/13/2024 6:24 PM EST Telephone call to pt using [employer] recycling sorter Ld #[id number]. Pt upset with phone call and being asked for confirmation of birthday. Explained twice telegraphic typewriter operator chief was calling from her primary care doctor's office, Caren Murphy at [facility]. Explained that if uncomfortable, telegraphic typewriter operator chief can call back tomorrow. Pt then confirmed birthday. Explained results: that PCP wanted to inform pt that potassium level normalized and that PCP recommends follow up visit for diabetes, advised that PCP's medicalassistant will call to schedule the appt in a few days and that PCP would like pt to get labs done beforehand. Pt verbalized understanding, no further questions. * Telephone Encounter - Tyesha Contreras RN - 10/13/2024 6:16 PM EST ----- Message from Caren Murphy sent at 10/13/2024 4:56 PM EST ----- Great! Potassium normalized. Would recommend she get labs done to recheck A1c (d/t h/o elevated A1cand glu in past) before next visit and please schedule f/u preDM if none soon. documented in this encounter Plan of Treatment Upcoming Encounters Date Type Department Care Team (Late st Contact Info) Description 11/24/2024 10:30 AM EDT Office Visit [facility] MEDICINE [address] [place] [address] Jerod Pruett MD [address] [place] [address] documented as of this encounter Visit Diagnoses Not on filedocumented in this encounter Additional Health Concerns Assessment Noted Time PHQ-9 Depression Total Score: 0 09/29/19 25 8:54 AM EST documented as of this encounter Care Teams Forming Acid Dumper Relationship Specialty Start Date End Date Caren Murphy ANP [address] [place] [address] PCP - General Family Medicine 04/14/22 documented as of this encounter
--- OUTSIDE RECORDS SUMMARY | 2024-10-13 19:02 | XMS_ITS | Encounter Summary ---
Author Organization [employer] Address [address] [place] [address] Care Team Providers Care Dishwasher Preparer Name Role Phone Caren Murphy Primary Care Provider [phone] Reason for Visit * Reason Onset Date Comments Potassium Supplementation 09/29/2024 Encounter Details Date Type Department Care Team ([facility] st Contact Info) Description 09/29/2024 Telephone [facility] MEDICINE [address] [place], [place] [id number] Josephine Vallejo RN Potassium Supplementation Social History [...] advised of potassium supplementation sent to the [facility] pharmacy and to product picker at the soonest convenience. Pt to have [...] 11/24/2024 10:30 AM EDT Office Visit [facility] MEDICINE [address] [place] [address] Jerod Pruett MD [address] [place] [address] documented as of this encounter Visit Diagnoses Not on filedocumented in this encounter Additional Health Concerns Assessment Noted Time PHQ-9 Depression Total Score: 0 09/29/19 25 8:54 AM EST documented as of this encounter Care Teams Dishwasher Preparer Relationship Specialty Start Date End Date Caren Murphy ANP [address] [place] [address] PCP - General Family Medicine 04/14/22 documented as of this encounter
--- OUTSIDE RECORDS SUMMARY | 2024-10-13 19:02 | XMS_ITS | Encounter Summary ---
Author Organization [employer] Address [address] [place] [address] Care Team Providers Care Student Ministry Pastor Name Role Phone Caren Murphy HERMILO Primary Care Provider [phone] Encounter Details Date Type Department Care Team [...] is your housing situation today? I have imguelito burgos 06/03/[address] you [...] Description 11/24/2024 10:30 AM EDT Office Visit [facility] MEDICINE [address] [place] [address] Jerod Pruett MD [address] [place] [address] documented as of this encounter Visit Diagnoses Not on filedocumented in this encounter Additional Health Concerns Assessment Noted Time PHQ-9 Depression Total Score: 0 09/29/19 25 8:54 AM EST documented as of this encounter Care Teams Student Ministry Pastor Relationship Specialty Start Date End Date Caren Murphy ANP [address] [place] [id number] PCP - General Family Medicine 04/14/22 documented as of this encounter
--- OUTSIDE RECORDS SUMMARY | 2024-10-13 19:02 | XMS_ITS | Clinical Summary ---
Author Organization [employer] Address [address] [place] [address] Care Team Providers Care Mechanical Engineering Intern Name Role Phone Marianna Chow HERMILO Primary Care Provider [phone] Allergies Active Allergy Reactions Criticality Noted Date [...] by mouth at bedtime. Active nystatin (Mycostatin) 428643 UNIT/GM powder Apply topically every 12 (twelve) hours. To the affected area(s) Active Blood Pressure Monitoring (Blood Pressure Cuff) [facility] Fot htn. Please teach patient how to use and track BP Active Naloxone HCl (NARCAN NA) Administer into affected nostril(s). [place] 0.1 mL by intranasal route in 1 [...] and mediastinal lymphadenectomy and s/p chemotherapy From [place] thoracic notes 05/07/23, 05/21/23 (visit at which [...] history of coronary artery disease or prior OK. She does have cardiac risk factors of morbid obesity, hypertension, smoking. Pharmacological nuclear stress test done on 03/28/2023 showing anterior rate and apical ischemia with fixed septal defect which could represent prior OK, these findings could also be seen in patients with left bundle branch block, EF 45%. She is on aspirin 81 mg daily, simvastatin 80 mg daily. [place] LDL goal less than 70. Heart failure [...] Encounters Date Type Department Care Team Description 10/13/2024 Telephone [facility] [address] [place] [address] Marianna Chow ANP Results 10/07/2024 2:30 PM EST Office Visit [facility] OPTOMETRY [address], [place] [phone] Charly, Janene, OD Age-related nuclear cataract of both eyes (Primary Dx); Dry eyes, bilateral; Astigmatism of both eyes with presbyopia 10/07/2024 Travel 09/29/2024 9:30 AM EST Office Visit [facility] [address] [place] [address] Jerod Pruett MD Opioid type dependence, continuous (CMS/HCC) (Primary Dx); Opioid use disorder in remission 09/29/2024 Telephone [facility] [address] [place] [address] Josephine Vallejo RN Potassium Supplementation 09/29/2024 Orders Only [facility] [address], [place] [phone] Marianna Chow ANP Hypokalemia (Primary Dx); Elevated hemoglobin A1c; Prediabetes 09/29/2024 Orders Only [facility]INE [address] [place] [phone] Marianna Chow ANP Hypokalemia (Primary Dx) 09/29/2024 Travel 09/23/2024 Refill [facility] [address] [place] [phone] Rhoda Muhammad RN Uncomplicated opioid dependence (CMS/HCC) 09/18/2024 Refill [facility] [address] [place] [phone] Marianna Chow ANP Asthma-chronic obstructive pulmonary disease overlap syndrome (CMS/HCC) 08/26/2024 Refill [facility] [address] [place] [phone] Marianna Chow ANP Hyperlipidemia, unspecified hyperlipidemia type; Cardiomyopathy, unspecified type (CMS/HCC); Primary hypertension; Environmental and seasonal allergies; Constipation, unspecified constipation type 08/10/[address] [address] Marianna Chow ANP Asthma-chronic obstructive pulmonary disease overlap syndrome (CMS/HCC) 08/04/2024 9:15 AM EST Office Visit [address] [phone] Jerod Pruett MD Opioid use disorder in remission (Primary Dx); Uncomplicated opioid dependence (CMS/HCC); Encounter for screening for infections with a predominantly sexual mode of transmission 08/04/2024 Travel 07/29/[address] [address] Marianna Chow ANP Appointment Request 07/27/[address] [address] Rhoda Muhammad RN Uncomplicated opioid dependence ([facility]/HCC) from Last 3 Months Immunizations Name Administration [...] 11/28/2021, 05/19/2021,11/28/2020,10/31 Pfizer Covid-19 Vaccine 12+ 05/21/2024, Pfizer Covid-19 Vaccine 12+ Bivalent 05/21/2022 Pneumococcal [...] the past 12 months, has t he [employer], gas, oil or water [employer] threatened to shut off services in your [...] Description 11/24/2024 10:30 AM EDT Office Visit [facility] [address], [place] [phone] Jerod Pruett MD [address] [place] [address] Health Maintenance Due Date Last Done Comments [...] Diabetes: Hemoglobin A1C 01/30/2025 024, 10/14/2020, 06/13/2020 Depression Screening 09/29/2025 09/29/2024, 09/29/19 25 Tobacco Screening 10/07/2025 10/07/2024 Cervical Cancer Screening 01/13/2026 HPV/Cotest 01/13/2026 01/13/2021 [...] Procedure Name Priority Date/Time Associated Diagnosis Comments BASIC METABOLIC PANEL Routine 10/06/2024 1:07 PM EST Hypokalemia ALDOSTERONE/PLASMA RENIN ACTIVITY RATIO, LC/MS/MS Routine 09/29/2024 [...] 10:08 AM EST Uncomplicated opioid dependence (CMS/HCC) HEMOGLOBIN A1C Routine 01/31/2024 1:09 PM EDT Elevated hemoglobin A1c LIPID PANEL, STANDARD Routine 10/02/2022 12:24 PM EST BI MAMMOGRAM SCREENING TOMOSYNTHESIS BILATERAL Routine 08/28/2022 2:50 PM EST HPV MRNA E6/E7 Routine 01/13/2021 10:02 AM EDT THINPREP PAP Routine 01/13/2021 10:02 AM EDT HM COLONOSCOPY Routine 04/19/2016 from Last 3 Months or Most Recently Relevant to Health Maintenance Results * (ABNORMAL) Basic Metabolic Panel (10/06/2024 1:07 PM EST) Sodium 146(H) 135 - 145 mmol/L [facility] Potassium 4.2 3.3 - 5.1 mmol/L [facility] Chloride 102 96 - 108 mmol/L [facility] Carbon Dioxide 35(H) 22 - 29 mmol/L [facility] Anion Gap 13 12 - 20 [facility] Urea Nitrogen (BUN) 16 9 - 16 mg/dL [facility] Creatinine, Serum 0.68 0.5 - 1.4 mg/dL [facility] Estimated Glomerular Filt Rate >60 [facility] Comment:Chronic Kidney Disea se: Estimated GFR < 60 mL/min/1.90x1Xntupd Kidney Disease: Estimated GFR < 15 mL/min/1.73m2 Glucose 141(H) 60 - 115 mg/dL [facility] Calcium 9.8 8.4 - 10.2 mg/dL [facility] Blood Venous blood specimen / Unknown 10/06/2024 1:07 PM EST 10/06/2024 4:04 PM EST Marianna Chow [facility] LAB BLOOD ORDERABLES Final Resul t [facility] [address] [place] [phone] * T-SPOT??.TB (09/29/2024 8:24 AM EST) Pathologist [facility] T Spot TB Negative Negative [facility] Comment:A negative test resu lt [...] as aquantitative test. TS PANEL A 0 [facility] TS PANEL B 0 [facility] Negative Control Passed [facility] Positive Control Passed [facility] Comment:For additional infor gaylejohn, please refer tohttp://education.[employer]/faq/NHQ079(This link is being provided for informational/educational purposes only.)THIS TEST WAS PERFORMED AT:[facility] [id number] [place] [id number] LEIJA MD,PHD 09/29/2024 8:24 AM EST 09/29/2024 10:51 AM EST us Jerod Pruett MD LAB BLOOD ORDERABLES Final Res ult [facility] [address] [place] [address] [phone] * Aldosterone/Plasma Renin Activity Ratio, LC/MS/MS (09/29/2024 8:24 AM EST) [facility] Aldosterone 9 see note ng/dL [facility] Comment:Unable to flag abnor mal result(s), please refer to reference range(s) below:Adult Reference Ranges for Aldosterone, LC/MS/MS: Upright 8:00 - 10:00 am < or = 28 ng/dL Upright 4:00 - 6:00 pm < or = 21 ng/dL Supine 8:00 - 10:00 am 3 - 16 ng/dLTHIS TEST WAS PERFORMED AT:[facility]/[address] [address] [id number] LEIJA MD,PHD Plasma Renin Activity 0.44 0.25 - 5.82 ng/mL/h [facility] Aldosterone/Renin Ratio 20.5 0.9 - 28.9 Ratio [facility] Comment:This test was develo ped and its analytical performancecharacteristics have been determined by [employer] [place], [place]. It hasnot been cleared or approved by the U.S. Food and DrugAdministration. This assay has been validated pursuantto the CLIA regulations and is used for clinicalpurposes.THIS TEST WAS PERFORMED AT:[facility]/[employer] [id number] [place] [id number] LEIJA MD,PHD Blood Venous blood specimen / Unknown 09/29/2024 8:24 AM EST 09/29/2024 10:51 AM EST [facility] LAB BLOOD ORDERABLES Final Resul t [facility] [address] [place] [phone] * CBC auto differential (09/29/2024 8:24 AM EST) White Blood Count 6.8 4.8 - 10.8 X10*3/uL [facility] Red Blood Count 4.41 4.20 - 5.50 X10*6/uL [facility] Hemoglobin 13.1 12.0 - 16.0 g/dl [facility] Hematocrit 41.6 37.0 - 47.0 % [facility] Mean Corpuscular Volume 94.3 80.0 - 98.0 fL [facility] Mean Corpuscular Hemoglobin 29.7 27.0 - 33.0 pg [facility] Mean Corpuscular HGB Conc 31.5 31.0 - 35.0 g/dl [facility] Red Cell Distribution Width 14.0 11.0 - 16.0 % [facility] Platelet Count 217 160 - 400 X10*3/uL [facility] Mean Platelet Volume 11.5 9.4 - 12.3 fL [facility] Neutrophils Percent Auto 49.4 45 - 73 % [facility] Imm Gran Pct Auto 0.3 0.0 - 0.4 % [facility] Lymphocytes Percent Auto 40.0 20 - 40 % [facility] Monocytes Percent Auto 8.5 2 - 11 % [facility] Eosinophils Percent Auto 1.2 0 - 4 % [facility] Basophils Percent Auto 0.6 0 - 2 % [facility] NRBC Pct Auto 0.0 0.0 - 0.2 /100WBC [facility] Neutrophils Absolute Auto 3.4 2.0 - 8.3 x10*3/uL [facility] Imm Gran Abs Auto 0.02 0.00 - 0.03 X10*3/uL [facility] Lymphocytes Absolute Auto 2.7 1.2 - 4.9 X10*3/uL [facility] Monocytes Absolute Auto 0.6 0.1 - 1.2 X10*3/uL [facility] Eosinophils Absolute Auto 0.1 0.0 - 0.4 X10*3/uL [facility] Basophils Absolute Auto 0.0 0.0 - 0.2 X10*3/uL [facility] NRBC Abs Auto 0.000 0.0 - 0.012 X10*3/uL [facility] Blood Venous blood specimen / Unknown 09/29/2024 8:24 AM EST 09/29/2024 10:51 AM EST Marianna Chow [facility] LAB BLOOD ORDERABLES Final Resul t [facility] [address] [place] [phone] * RPR (Monitor) with Reflex to??Titer (09/29/2024 8:24 AM EST) RPR (Monitor) w/Refl Titer NON-REACTI VE NON-REACT DEWEY [facility] Comment:THIS TEST WAS PERFOR MED AT:[employer] [place] [phone] MARTINES MD Rapid Plasma Reagin Ab Titer TNP [facility] Blood Venous blood specimen / Unknown 09/29/2024 8:24 AM EST 09/29/2024 10:51 AM EST us Jerod Pruett MD LAB BLOOD ORDERABLES Final Res ult Performing Organization Address [facility] de Phone Number [facility] [address] [place] [phone] * B Type Natriuretic Peptide (BNP) (09/29/2024 8:24 AM EST) Pathologist [facility] B Type Natriuretic Peptide 15 <100 pg/mL [facility] Comment:For those patients w ho are being treated with Natrecor(nesiritide, recombinant BNP), BNP testing should beperformed at least two hours post treatment in order toensure that only endogenous levels of BNP are detected. Blood Venous blood specimen / Unknown 09/29/2024 8:24 AM EST 09/29/2024 10:51 AM EST us Marianna AKHTAR LAB BLOOD ORDERABLES Final Resul t Performing Organization Address [facility] de Phone Number [facility] [address] [place] [phone] * Hepatic Function Panel (09/29/2024 8:24 AM EST) Bilirubin, Direct 0.1 0.0 - 0.5 mg/dL [facility] Blood Venous blood specimen / Unknown 09/29/2024 8:24 AM EST 09/29/2024 10:51 AM EST us Jerod Pruett MD LAB BLOOD ORDERABLES Final Res ult [facility] [address] [place] [phone] * (ABNORMAL) Comprehensive Metabolic Panel (09/29/2024 8:24 AM EST) Sodium 146(H) 135 - 145 mmol/L [facility] Potassium 3.2(L) 3.3 - 5.1 mmol/L [facility] Chloride 104 96 - 108 mmol/L [facility] Carbon Dioxide 30(H) 22 - 29 mmol/L [facility] Anion Gap 15 12 - 20 [facility] Urea Nitrogen (BUN) 10 9 - 16 mg/dL [facility] Creatinine, Serum 0.66 0.5 - 1.4 mg/dL [facility] Estimated Glomerular Filt Rate >60 [facility] Comment:Chronic Kidney Disea se: Estimated GFR < 60 mL/min/1.28h3Fllxsz Kidney Disease: Estimated GFR < 15 mL/min/1.73m2 Glucose 125(H) 60 - 115 mg/dL [facility] Calcium 9.4 8.4 - 10.2 mg/dL [facility] Bilirubin, Total 0.3 0.0 - 1.0 mg/dL [facility] Aspartate Amino Transferase 24 5 - 31 U/L [facility] Alanine Aminotransferase 13 0 - 31 U/L [facility] Total Protein 7.4 6.5 - 8.0 g/dL [facility] Albumin Level 3.9 3.5 - 5.0 g/dL [facility] Alkaline Phosphatase 89 39 - 117 U/L [facility] Blood Venous blood specimen / Unknown 09/29/2024 8:24 AM EST 09/29/2024 10:51 AM EST Marianna Chow ANP LAB BLOOD ORDERABLES Final Resul t Performing Organization Address City/[facility] Co de Phone Number [facility] [address] [place] [phone] * POCT [place]-14 Urine Drug Screen [...] procedure / Unknown 08/04/2024 10:08 AM EST Result [facility] Jerod Pruett MD POINT OF CARE TEST ENTER/EDIT ORDERABLES Final Result * (ABNORMAL) Hemoglobin A1c (01/31/2024 1:09 PM EDT) Hemoglobin A1c 6.3(H) <6.0 % [facility] Comment:Hemoglobin A1C Refer ence Range Adults: 4.8 - 6.0 % Non diabetic: < 6.0 % Goal: < 7.0 %Additional Action Suggested: > 8.0 %Note: Hemoglobin A1c results are invalid for patients with abnormal amounts of HbF. Blood transfusions may impact the HbA1c concentration in the patient sample. Estimated Average Glucose 134 mg/dL [facility] Comment:eAG = Estimated ave rage glucose which is %A1C expressed asaverage glucose, using the formula of the [id number] Glucose study (ADAG), Diabetes Care, Vol.31,#8,Mar. 2007 Blood Venous blood specimen / Unknown 01/31/2024 1:09 PM EDT 01/31/2024 4:11 PM EDT Marianna Chow ANP LAB BLOOD ORDERABLES Final Resul t [facility] [address] [place] [phone] * Lipid Panel, Standard (10/02/2022 12:24 PM EST) Triglycerides 99 mg/dL [facility] Comment:Desirable Triglyceri de: less than 150 mg/dLBorderline High Triglyceride 150-199 mg/dLHigh Triglyceride: 200-499 mg/dLVery High Triglyceride: greater than or equal to 5OO mg/dL Cholesterol 180 mg/dL [facility] Comment:Desirable Cholestero l: less than 200 mg/dLBorderline High Cholesterol: 200-239 mg/dLHigh Cholesterol: greater than 239 mg/dL LDL Cholesterol Calculated 106 mg/dl [facility] Comment:Desirable LDL: less than 100 mg/dLNear Optimal/Above Optimal LDL: 110- 129 mg/dLBorderline High LDL: 130-159 mg/dLHigh LDL: 160-189 mg/dLVery High LDL: greater than or equal to 190 mg/dL HDL Cholesterol 55 mg/dL [facility] Comment:Desirable HDL: great er than 40 mg/dL Note: This HDL assay may give artificially low results in patients with liver disease. 10/02/2022 12:2 4 PM EST 10/02/2022 12:24 PM EST [facility] External Provider LAB BLO OD ORDERABLES Final Result Performing Organization Address [facility] Co de Phone Number [facility] [address] [place] [address] [phone] * BI Mammogram Screening Tomosynthesis Bilateral (08/28/2022 2:50 PM EST) Anatomical Region Laterality Modality Breast Bilateral Mammography 08/28/2022 2:50 PM EST Narrative 08/30/2022 9:45 AM EST ? [facility] ? [address] ?[place] [address] ? Mammography Report ? Signed ? Patient: Romario Moreno,Rosalba ?MR#: [id number] ?? [id number] ? : 1960 ?Acct:[id number] ? Age/Sex: 62 / F ?ADM Date: 08/28/22 ? Loc: HO.MAMMO ? Attending Dr: Marianna Chow WELL SURVEYING ENGINEER ? Ordering Physician: MRAIANNA CHOW NP ?Results: 2Benign Fin ?? dings ? Date of Service: 08/28/22 ?Follow Up: 1 Year From Orig ?? inal Mammogram ? Procedure(s): MM tomosynthesis screening BI ?? Accession Number(s): [id number] ? cc: MARIANNA CHOW NP ? EXAMINATION: ?? MM SCREENING DIGITAL BREAST [...] Chi MD in OV> ?08/30/[address] ? DD/ 1450 ? TD/TT: ? Food Production Supervisor: CADET ? Procedure Note Nj, Ilir - 08/30/2022 [facility] [address] [place] [address] Mammography Report Signed Patient: Kavita Palacios#: M [id number] : 9Acct:[id number] Age/Sex: 62 / FADM Date: 08/28/22 Loc: HO.MAMMO Attending Dr: Marianna Chow WELL SURVEYING ENGINEER Ordering Physician: MARIANNA CHOWults: 2Beni Osvaldo [address] Date of Service: 08/28/22Follow Up: 1 Year From Orig inal Mammogram Procedure(s): MM tomosynthesis screening BI Accession Number(s): [id number] cc: MARIANNA CHOW NP EXAMINATION: MM SCREENING [...] in OV> 08/30/22 0942 DD/ 1450 TD/TT: Food Production Supervisor: CADET [facility] External Provider IMG BI PROCEDURES Final Result [...] historic and ?? current clinical information. ?? Kiln Cleaner : SEE COMMENT [employer] [facility] Comment: GSG, CT(ASCP) CT screening location: [address] ??[id number] Interpretation/R esult: Negative for intraepithelial lesion or malignancy. [facility] LMP: NONE [facility] Prev. BX: NONE [facility] Prev. PAP: NONE [facility]IV[facility] SOURCE: None given [facility] Statement Of Adequacy: SEE COMMENT [facility] Comment: Satisfactory for evaluation. Endocervical/transformation zone component absent. 01/13/2021 10:0 2 AM EDT Remedios Lobo AUDIT PRACTICE INTERN LAB PATHOLOGY ORDERABLES Final Result Performing Organization Address [facility] de Phone Number [facility] [address] * HPV mRNA E6/E7 (01/13/2021 10:02 AM EDT) HPV nRNA E6/E7 Not Detected Not Detected [facility] Comment: Methodology: Grants Analyst-Mediated Amplification This assay detects E6/E7 viral messenger RNA (mRNA) from 14 high-risk HPV types (16,18,31,33,35,39,45,51,52,56,58,59,66,68). ? The analytical performance characteristics of this assay have been determined by [employer] The modifications have not been cleared or approved by the FDA. This assay has been validated pursuant to the CLIA regulations and is used for clinical purposes. ?? For additional information, please refer to http://education.Point[employer]/faq/PSA808k8 (This link if provided for information/ educational purposes only.) 01/13/2021 10:0 2 AM EDT Remedios Lobo AUDIT PRACTICE INTERN LAB BLOOD ORDERABLES Final Res ult Performing Organization Address [facility] de Phone Number [facility] [address] * Hm Colonoscopy (04/19/2016) Colonoscopy Normal Normal Historical Provider HEALTH MAINTENANCE Final Result from Last 3 Months or Most Recently Relevant to Health Maintenance Insurance MEDICARE [facility] Care Teams Mechanical Engineering Intern Relationship Specialty Start Date End Date Marianna Chow ANP [address] [place] [phone] PCP - General Family Medicine 04/14/22
--- OUTSIDE RECORDS SUMMARY | 2024-10-13 19:02 | XMS_ITS | Encounter Summary ---
Author Organization [employer] Address [address] [place] [address] Care Team Providers Care Fashion Model Name Role Phone Murphy Caren AKHTAR Primary Care Provider [phone] Reason for Visit * Reason Comments Med Refill Encounter Details Date Type Department Care Team ([facility] st Contact Info) Description 02/11/2024 Refill [facility] [address] [place] [address] eJrod Pruett MD [address] [place] [address] Uncomplicated opioid dependence (CMS/HCC) Social History Tobacco [...] Description 11/24/2024 10:30 AM EDT Office Visit [facility] [address] [place] [address] Jerod Pruett MD [address] [place] [address] documented as of this encounter Visit Diagnoses Diagnosis Uncomplicated opioid dependence (CMS/HCC) documented in this encounter Additional Health Concerns Assessment Noted Time PHQ-9 Depression Total Score: 16 024 1:07 PM EDT documented as of this encounter Care Teams Fashion Model Relationship Specialty Start Date End Date Caren Murphy ANP [address] [place] [address] PCP - General Family Medicine 04/14/22 documented as of this encounter
--- OUTSIDE RECORDS SUMMARY | 2024-10-13 19:02 | XMS_ITS | Encounter Summary ---
Author Organization [employer] Address [address] [place] [address] Care Team Providers Care Medical Office Receptionist Name Role Phone Mraianna Chow Primary Care Provider [phone] Encounter Details Date Type Department Care Team (Late st Contact Info) Description 09/29/2024 Orders Only [facility] MEDICINE [address] [place] [address] Marianna Chow ANP [address] [place] [address] Hypokalemia (Primary Dx); Elevated hemoglobin A1c; Prediabetes Social History Tobacco Use Types Packs/Day Years [...] as of this encounter Miscellaneous Notes * Result Encounter Note - HERMILO Kahn - 09/29/2024 1:29 PM EST Great! Potassium normalized. Would recommend she get labs done to recheck A1c (d/t h/o elevated A1cand glu in past) before next visit and please schedule f/u preDM if none soon. * Addendum Note - HERMILO Kahn - 09/29/2024 1:29 PM ESTAddended by: MARIANNA CHOW on: 10/13/2024 04:56 PM Modules accepted: Orders documented in this encounter Plan of Treatment Upcoming Encounters Date Type Department Care Team (Late st Contact Info) Description 11/24/2024 10:30 AM EDT Office Visit [facility] MEDICINE [address] [place] [address] Jerod Pruett MD [address] [place], [place] [phone] Scheduled Orders Name Type Priority Associated Diagnoses Orde r Schedule Hemoglobin A1c Lab Routine Elevated hemoglobin A1c Prediabetes Expected: 10/13/2024 (Approximate), Expires: 10/13/2025 documented as of this encounter Procedures Procedure Name Priority Date/Time Associated Diagnosis Comments BASIC METABOLIC PANEL Routine 10/06/2024 1:07 PM EST Hypokalemia documented in this encounter Results * (ABNORMAL) Basic Metabolic Panel (10/06/2024 1:07 PM EST) Sodium 146(H) 135 - 145 mmol/L [facility] Potassium 4.2 3.3 - 5.1 mmol/L [facility] Chloride 102 96 - 108 mmol/L [facility] Carbon Dioxide 35(H) 22 - 29 mmol/L [facility] Anion Gap 13 12 - 20 [facility] Urea Nitrogen (BUN) 16 9 - 16 mg/dL [facility] Creatinine, Serum 0.68 0.5 - 1.4 mg/dL [facility] Estimated Glomerular Filt Rate >60 [facility] Comment:Chronic Kidney Disea se: Estimated GFR < 60 mL/min/1.78h9Ciuail Kidney Disease: Estimated GFR < 15 mL/min/1.73m2 Glucose 141(H) 60 - 115 mg/dL [facility] Calcium 9.8 8.4 - 10.2 mg/dL [facility] Blood Venous blood specimen / Unknown 10/06/2024 1:07 PM EST 10/06/2024 4:04 PM EST Marianna AKHTAR LAB BLOOD ORDERABLES Final Resul t [facility] [address] [place], [place] [phone] documented in this encounter Visit Diagnoses Diagnosis Hypokalemia- Primary Hypopotassemia Elevated hemoglobin A1c Other abnormal blood chemistry Prediabetes Other abnormal glucose documented in this encounter Additional Health Concerns Assessment Noted Time PHQ-9 Depression Total Score: 0 09/29/19 25 8:54 AM EST documented as of this encounter Care Teams Medical Office Receptionist Relationship Specialty Start Date End Date Marianna Chow, HERMILO [address] [place] [phone] PCP - General Family Medicine 04/14/22 documented as of this encounter
--- OUTSIDE RECORDS SUMMARY | 2024-10-13 19:02 | XMS_ITS | Encounter Summary ---
Author Organization [employer] Address [address] 7[address] [place] [address] Care Team Providers Care Warehouse Shipper Name Role Phone Jeffrey Caren AKHTAR Primary Care Provider [phone] Encounter Details Date Type Department Care Team (Late st Contact Info) Description 12/24/2023 Orders Only [facility] MEDICINE [address] [place] [address] Rhoda Muhammad RN Uncomplicated opioid dependence (CMS/HCC) [...] t he electric, gas, oil or water [employer] threatened to shut off services in your [...] Description 11/24/2024 10:30 AM EDT Office Visit [facility] MEDICINE [address] [place], [place] [phone] Jerod Pruett MD [address] [place], [place] [phone] Scheduled Orders Name Type Priority Associated Diagnoses [...] Load <15 NOT DETECTED NOT DETECTED IU/mL [facility] HCV Log PCR <1.18 NOT DETECTED NOT DETECTED Log IU/mL [facility] Comment:This test was perfor med using Real-Time Polymerase ChainReaction.Reportable Range: 15 IU/mL to 100,000,000 IU/mL(1.18 Log IU/mL to 8.00 Log IU/mL).The analytical performance characteristics of thisassay have been determined by [employer].The modifications have not been cleared or approved bythe FDA. This assay has been validated pursuant to theCLIA regulations and is used for clinical purposes.For more information on this test, go to:http://education.Park[employer] Park[employer]/faq/RDL56e0(This link is being provided for informational/educational purposes only.)THIS TEST WAS PERFORMED AT:[address] [place] [id number] MARTINES MD 12/24/2023 11:2 6 AM EDT 12/25/2023 8:31 AM EDT us Jerod Pruett MD LAB BLOOD ORDERABLES Final Res ult [facility] [address] [place] [phone] * HIV-1/2 Antigen and Antibodies, Fourth Generation, with Reflexes (12/24/2023 11:26 AM EDT) Pathologist [facility] HIV AB/AG Nonreactive Nonreactive [facility] Comment:HIV-1 p24 Ag and/or HIV-1/HIV-2 Ab not detected.A test result that is nonreactive does not exclude thepossibility of exposure to or infection with HIV-1 and/orHIV-2. Nonreactive results in this assay for individualswith prior exposure to HIV-1 and/or HIV-2 may be due toantigen and antibody levels that are below the limit ofdetection of this assay.The [employer] HIV Ag/Ab Combo assay result andsupplemental assay results should be interpreted inconjunction with the patient's clinical presentation,history and other laboratory results. If the results areinconsistent with clinical evidence, additional testing issuggested to confirm the result. 12/24/2023 11:2 6 AM EDT 12/24/2023 1:16 PM EDT Jerod Pruett MD LAB BLOOD ORDERABLES Final Res ult Performing Organization Address [facility] Co de Phone Number [facility] [address] [place] [phone] * (ABNORMAL) Hepatitis C Antibody with Reflex to HCV, RNA, Quantitative, Real- Time PCR (12/24/2023 11:26 AM EDT) Hepatitis C Antibody Reactive( A) Nonreactive [facility] Comment:Presumptive evidence of antibodies to HCV. 12/24/2023 11:2 6 AM EDT 12/24/2023 1:16 PM EDT Jerod Pruett MD LAB BLOOD ORDERABLES Final Res ult Performing Organization Address [facility] Co de Phone Number [facility] [address] [place] [phone] documented in this encounter Visit Diagnoses Diagnosis Uncomplicated opioid dependence (CMS/HCC) documented in this encounter Additional Health Concerns Assessment Noted Time PHQ-9 Depression Total Score: 16 03/15/2 024 1:07 PM EDT documented as of this encounter Care Teams Warehouse Shipper Relationship Specialty Start Date End Date Caren Murphy ANP [address] [place] [phone] PCP - General Family Medicine 04/14/22 documented as of this encounter
--- OUTSIDE RECORDS SUMMARY | 2024-10-13 19:02 | XMS_ITS | Encounter Summary ---
Author Organization [employer] Address [address] 7[address] [place] [address] Care Team Providers Care Cutter Helper Name Role Phone Jeffrey Caren AKHTAR Primary Care Provider [phone] Reason for Visit * Reason Comments Cataract Encounter Details Date Type Department Care Team (Late st Contact Info) Description 10/07/2024 2:30 PM EST Office Visit [facility] OPTOMETRY [address] [place] [address] Charly, Janene, OD [address] [place] [address] Age-related nuclear cataract of both eyes (Primary Dx); Dry eyes, bilateral; Astigmatism of both eyes with presbyopia Social History Tobacco Use Types Packs/Day Years [...] [facility] MEDICINE [address] [place] [address] Jerod Pruett MD [address] [place] [address] documented as of this encounter Visit Diagnoses Diagnosis Age-related nuclear cataract of both eyes- Primary Dry eyes, bilateral Astigmatism of both eyes with presbyopia documented in this encounter Additional Health Concerns Assessment Noted Time PHQ-9 Depression Total Score: 0 09/29/19 25 8:54 AM EST documented as of this encounter Care Teams Cutter Helper Relationship Specialty Start Date End Date Caren Murphy ANP [address] [place] [address] PCP - General Family Medicine 04/14/22 documented as of this encounter
--- OUTSIDE RECORDS SUMMARY | 2024-10-13 19:02 | XMS_ITS | Encounter Summary ---
Author Organization [employer] Address [address] [place] [address] Care Team Providers Care Installment Agent Name Role Phone Murphy Caren AKHTAR Primary Care Provider [phone] Reason for Visit * Reason Comments Med Refill Encounter Details Date Type Department Care Team ([facility] st Contact Info) Description 10/14/2023 Refill [facility] MEDICINE [address] [place] [address] Jerod Pruett MD [address] [place] [address] Uncomplicated opioid dependence (CMS/HCC) Social History Tobacco [...] t he electric, gas, oil or water [employer] threatened to shut off services in your [...] Description 11/24/2024 10:30 AM EDT Office Visit [facility] MEDICINE [address] [place], [place] [phone] Jerod Pruett MD [address] [place] [address] documented as of this encounter Visit Diagnoses Diagnosis Uncomplicated opioid dependence (CMS/HCC) documented in this encounter Care Teams Installment Agent Relationship Specialty Start Date End Date Caren Murphy ANP [address] [place], [place] [phone] PCP - General Family Medicine 04/14/22 documented as of this encounter
--- OUTSIDE RECORDS SUMMARY | 2024-10-13 19:02 | XMS_ITS | Encounter Summary ---
Author Organization [employer] Address [address] [place] [address] Care Team Providers Care Manufacturing Design Engineer Name Role Phone Caren Murphy Primary Care Provider Encounter Details Date Type Department Care Team ([facility] st Contact Info) Description 09/29/2024 Orders Only [facility] MEDICINE [address] [place] [address] Caren Murphy ANP [address] [place] [address] Hypokalemia (Primary Dx) Social History Tobacco Use [...] Description 11/24/2024 10:30 AM EDT Office Visit [facility] MEDICINE [address] [place] [address] Jerod Pruett MD [address] [place] [address] documented as of this encounter Visit Diagnoses Diagnosis Hypokalemia- Primary Hypopotassemia documented in this encounter Additional Health Concerns Assessment Noted Time PHQ-9 Depression Total Score: 0 09/29/19 25 8:54 AM EST documented as of this encounter Care Teams Manufacturing Design Engineer Relationship Specialty Start Date End Date Caren Murphy ANP [address] [place] [address] PCP - General Family Medicine 04/14/22 documented as of this encounter
--- OUTSIDE RECORDS SUMMARY | 2024-10-13 19:02 | XMS_ITS | Encounter Summary ---
Author Organization [employer] Address [address] [place] [address] Care Team Providers Care Ent Consultant Name Role Phone Murphy Caren AKHTAR Primary Care Provider [phone] Reason for Visit * Reason Comments Med Refill Encounter Details Date Type Department Care Team ([facility] st Contact Info) Description 07/02/2023 Refill [facility] MEDICINE [address] [place] [address] Jerod Pruett MD [address] [place] [address] Uncomplicated opioid dependence (CMS/HCC) Social History Tobacco [...] t he electric, gas, oil or water [facility] threatened to shut off services in your [...] Description 11/24/2024 10:30 AM EDT Office Visit [facility] MEDICINE [address] [place], [place] [phone] Jerod Pruett MD [address] [place] [address] documented as of this encounter Visit Diagnoses Diagnosis Uncomplicated opioid dependence (CMS/HCC) documented in this encounter Care Teams Ent Consultant Relationship Specialty Start Date End Date Caren Murphy ANP [address] [place], [place] [phone] PCP - General Family Medicine 04/14/22 documented as of this encounter
--- OUTSIDE RECORDS SUMMARY | 2024-10-13 19:02 | XMS_ITS | Encounter Summary ---
Author Organization [employer] Address [address] [place] [address] Care Team Providers Care Pre Sales Systems Engineer Name Role Phone Caren Murphy HERMILO Primary Care Provider [phone] Encounter Details Date Type Department Care Team (Latest Contact Info) Description 10/07/2024 Travel Social History Tobacco Use Types Packs/Day [...] Description 11/24/2024 10:30 AM EDT Office Visit [facility] MEDICINE [address] [place] [address] Jerod Pruett MD [address] [place] [address] documented as of this encounter Visit Diagnoses Not on filedocumented in this encounter Additional Health Concerns Assessment Noted Time PHQ-9 Depression Total Score: 0 09/29/19 25 8:54 AM EST documented as of this encounter Care Teams Pre Sales Systems Engineer Relationship Specialty Start Date End Date Caren Murphy ANP [address] [place] [phone] PCP - General Family Medicine 04/14/22 documented as of this encounter
--- OUTSIDE RECORDS SUMMARY | 2024-10-13 19:02 | XMS_ITS | Encounter Summary ---
Author Organization [employer] Address [address] [place] [address] Care Team Providers Care Photographers' Model Name Role Phone Jeffrey Caren AKHTAR Primary Care Provider [phone] Reason for Visit * Reason Onset Date Comments Med Refill 09/23/2024 Encounter Details Date Type Department Care Team (Late st Contact Info) Description 09/23/2024 Refill [facility] MEDICINE [address] [place] [address] Rhoda Muhammad RN Uncomplicated opioid dependence (CMS/HCC) [...] Description 11/24/2024 10:30 AM EDT Office Visit [facility] MEDICINE [address] [place] [address] Jerod Pruett MD [address] [place] [address] documented as of this encounter Visit Diagnoses Diagnosis Uncomplicated opioid dependence (CMS/HCC) documented in this encounter Additional Health Concerns Assessment Noted Time PHQ-9 Depression Total Score: 16 024 1:07 PM EDT documented as of this encounter Care Teams Photographers' Model Relationship Specialty Start Date End Date Caren Murphy ANP [address] [place] [address] PCP - General Family Medicine 04/14/22 documented as of this encounter
--- OUTSIDE RECORDS SUMMARY | 2024-10-13 19:02 | XMS_ITS | Encounter Summary ---
Author Organization [employer] [facility] Address [address] [place] [address] Care Team Providers Care Echometer Engineer Name Role Phone Caren Murphy Primary Care Provider [phone] Reason for Visit * Reason Comments Med Refill Encounter Details Date Type Department Care Team (Late Contact Info) Description 11/17/2022 Refill [facility] MEDICINE [address] [place] [phone] Jerod Pruett MD [address] [place] [phone] Uncomplicated opioid dependence (CMS/HCC) Social History Tobacco [...] Description 11/24/2024 10:30 AM EDT Office Visit [facility] MEDICINE [address] [place] [phone] Jerod Pruett MD [address] [place] [address] [phone] documented as of this encounter Visit Diagnoses Diagnosis Uncomplicated opioid dependence (CMS/HCC) documented in this encounter Care Teams Echometer Engineer Relationship Specialty Start Date End Date Caren Murphy ANP [address] [place] [address] PCP - General Family Medicine 04/14/22 documented as of this encounter
== END 2024-10-13 15:16 | disposition home or self-care (01) ==
LOC: HO.CT 15:15
PROVIDERS: PCP Internal Medicine; Visit Provider Nurse Practitioner Primary Care
DX: E27.8 Other specified disorders of adrenal gland (principal)
CPT/HCPCS: 74170; Q9967

== ENCOUNTER → 2024-10-13 15:18 | Outpatient (BNV) | payer MEDICARE, SELFPAY | PROVIDERS: PCP Internal Medicine; Visit Provider Radiology Vascular & Interventional Radiology | DX: D35.02 Benign neoplasm of left adrenal gland (principal) | CPT/HCPCS: 74170 ==

== ENCOUNTER 2024-11-24 08:10 | Outpatient (REF) | payer MEDICARE, SELFPAY ==
--- OUTSIDE RECORDS SUMMARY | 2024-11-24 08:23 | XMS_ITS | Clinical Summary ---
Author Organization [facility] [address] [facility] Address [address] [place] [address] Phone Care Team Providers Care Cigar Roller Name Role Phone Martín De Santiago MD Primary Care Provider [phone] Allergies No known active allergies Medications albuterol [...] She was referred to medical onocology at [facility] and completed 8 cycles of adjuvant chemotherapy and denies any immunotherapy. Her most recent chest CT scan which was performed on 07/06/2024 at [facility] and shows no new or worsening [...] is a 63-year-old female previously in the [facility] lung cancer screening program who on May 07, 2023 had a da Missy robotic right upper lobectomy and mediastinal lymphadenectomy for stage [id number] or stage Ib adenocarcinoma. ?? Patient will be referred to medical oncology at [facility] for discussion of possible adjuvant chemotherapy [...] results which should both take place at [facility]. ?? While patient was in office [...] ?? Also instructed to discontinue her Keflex. Surgical History Surgery Date Site/Laterality Comments CARDIAC CATHETERIZATION N/A PROCEDURE: HISTORICAL CARDIAC CATH SECTION N/A PROCEDURE: HISTORICAL DELIVERY COLONOSCOPY N/A PROCEDURE: HISTORICAL COLONOSCOPY BREAST BIOPSY Right PROCEDURE: CO BIOPSY BREAST OPEN INCISIONAL TUBAL LIGATION PROCEDURE: HISTORICAL TUBAL LIGATION OTHER SURGICAL HISTORY 05/07/2023 Right PROCEDURE: CO THORACOSCOPY W/LOBECTOMY SINGLE LOBE; COMMENT: RUL wedge THYROID BIOPSY 07/10/2024 at [facility] Medical History Medical History Date Comments Hepatitis C DX:Hepatitis C Morbid obesity (CMS/HCC) DX:Morb id obesity (HCC) Nicotine dependence DX:Nicotine dependence Substance abuse DX:Substance abu se (HCC) Sleep apnea, obstructive DX:Slee p apnea, [...] Upcoming Encounters Date Type Department Care Team ([facility] st Contact Info) Description 01/19/2025 3:00 PM EDT Appointment [facility] CT Scan [address] [place] [phone] 01/28/2025 10:00 AM EDT Office Visit Thoracic Surgery - [place] [address] [facility] [address] [place] [phone] Alvina Armas PA [address] [facility] [place] [address] Health Maintenance Due Date Last Done Comments Cervical Cancer Screening: Pap Smear 1980 Pneumococcal Vaccine: 50+ Years (2 of 2 - PCV) 09/30/2010 09/30/2009, 09/30/2009 Pneumococcal Vaccine: Pediatrics (0 to 5 Years) and At-Risk Patients (6 to 64 Years) (2 of 2 - PCV) 09/30/2010 09/30/2009, 09/30/2009 Hepatitis B Vaccines (1 of 3 - Risk 3-dose series) 2019 RSV Immunization Adult Patients (1 - Risk 60-74 years 1-dose series) [...] age to complete this topic Meningococcal B Vaccine Aged Out No l onger eligible based on patient's age to complete this topic RSV Immunization Patients Under 20 months Aged Out No longer eligible based on patient's age to complete this topic Varicella Vaccines Aged Out No longer eligible based on patient's age to complete this topic Procedures Procedure Name Priority Date/Time Associated Diagnosis Comments EXTERNAL CT REPORT 10/13/[address] REPORT 10/13/2024 from Last 3 Months Results * External CT Report (10/13/2024) Only the most recent of2 resultswithin the time period is included. Anatomical Region Laterality Modality Computed Tomogra phy us Provider [facility] CT PROCEDURES Final Result from Last 3 Months Insurance MEDICARE MEDICAID - [place] Care Teams Cigar Roller Relationship Specialty Start Date End Date Martín De Santiago MD [address] [address] PCP - General Internal Medicine 06/02/24
[2024-11-24 11:27] LABS: Estimated Average Glucose 117 mg/dL; Hemoglobin A1C 148.9457 umol/L; Hemoglobin A1c % 5.7 % (<6.0); Total Hemoglobin (HGBA1C) 3850.0703 umol/L
[2024-11-28 15:44] LABS: Metanephrine, Free 24U 125 mcg/24 h (90-315); Normetanephrine, Free 24U 183 mcg/24 h (122-676); Total Metanephrine, Free 24U 308 mcg/24 h (224-832); Total Volume 24U 2075 mL
== END 2024-11-24 08:11 | disposition home or self-care (01) ==
LOC: HO.HHCL 08:10
PROVIDERS: Visit Provider Nurse Practitioner Primary Care
DX: R73.03 Prediabetes (principal); R73.09 Other abnormal glucose; E27.8 Other specified disorders of adrenal gland
CPT/HCPCS: 36415; 83036; 83835

== ENCOUNTER 2025-03-30 08:02 | Outpatient (REF) | payer MEDICARE, MEDICAID, SELFPAY ==
--- OUTSIDE RECORDS SUMMARY | 2025-03-30 08:07 | XMS_ITS | Clinical Summary ---
Author Organization [facility] [address] [facility] Address [address] [place] [address] Phone Care Team Providers Care Passenger Tire Inspector Name Role Phone Caren Murphy NP Primary Care Provider [phone] Allergies No known active allergies Medications albuterol [...] Active Problems Problem Noted Date Diagnosed Date Adrenal adenoma 02/12/2025 Pulmonary nodules 02/12/2025 History of lung cancer 07/21/2024 Assessment & Plan (02/12/2025 10:15 AM EDT): Ms. Doss is a 64-year-old female who had a right upper lobectomy in April 2023 for stage Ib pulmonary adenocarcinoma. She did receive adjuvant chemotherapy with her oncologist at [facility]. The patient's most recent surveillance chest CT scan done January 2025 shows new patchy airspace disease at the base of the right lower lobe, and when given her recent history of a bad cold this likely represents inflammatory changes. There are no other concerning pulmonary nodules or thoracic adenopathy, but there is significant motion artifact which hinders some ability in evaluating for small nodules. I will order a chest CT to be done in 3 months, April 2025, to follow-up on expected resolution of these new nodules in the right lung. Patient will have a visit with us after that scan to go over the results. Assessment & Plan (07/21/2024 11:29 AM EST): Ms. Doss is a 63 yr. female who is S/P a Robotic right upper lobe wedge with completion lobectomy for a stage 1b pulmonary adenocarcinoma (pT2a,pN0). She was referred to medical onocology at [facility] and completed 8 cycles of adjuvant chemotherapy and denies any immunotherapy. Her most recent chest CT scan which was performed on 07/06/2024 at [facility] and shows no new or worsening [...] thoracic surgery department thereafter to discuss results. Resolved Problems Problem Noted Date Diagnosed Date Resolved Date Adrenal mass ([facility] V24) 07/21/2024 0 02/12/2025 Assessment & Plan (07/21/2024 11:30 AM EST): [...] something concerning like a malignancy. Lung cancer ([facility] V24, [facility] V28) 05/13/2023 02/12/2025 Overview (06/02/2024): Last Assessment & Plan: Ms. Doss is a 63-year-old female previously in the [facility] lung cancer screening program who on May 07, 2023 had a da Missy robotic right upper lobectomy and mediastinal lymphadenectomy for stage [id number] or stage Ib adenocarcinoma. Patient will be referred to medical oncology at [facility] for discussion of possible adjuvant chemotherapy or immunotherapy in the future. She was also educated that she will [...] surveillance of 5 years per NCCN guidelines. Her next chest CT surveillance scan will be due in November 2023 and a visit at the thoracic surgical follow-up department thereafter to discuss results which should both take place at [facility]. While patient was in office today her right-sided chest tube was removed without incident and a dry occlusive dressing put in place with instructions not to remove dressing for 48 hours. She will have a follow-up visit in our department next week with a chest x-ray prior to visit to ensure her chest tube site is healing properly and that her lung remains well-expanded. Also instructed to discontinue her Keflex. Encounters Date Type Department Care Team Description 02/11/2025 11:15 AM EDT Office Visit Thoracic Surgery - [place] [address] [facility] [address] [place] [id number] Alvina Armas PA Pulmonary nodules (Primary Dx); History of lung cancer 02/05/2025 2:20 PM EDT - 02/05/2025 11:59 PM EDT Hospital Encounter [facility] CT Scan [address] [place] [address] History of lung cancer; Adrenal mass ([facility] V24) Discharge Disposition: Home or Self Care from [...] COMMENT: RUL wedge THYROID BIOPSY 07/10/2024 at [facility] Medical History Medical History Date Comments Hepatitis C DX:Hepatitis C Morbid obesity (CMS/HCC V24, CMS/HCC V28) DX:Morbid obesity (HCC) Nicotine dependence DX:Nicotine dependence Substance abuse (CMS/HCC V24 , CMS/HCC V28) DX:Substance abuse (HCC) Sleep apnea, obstructive DX:Slee p apnea, obstructive Asymptomatic varicose veins of lower extremity DX:Asymptomatic varicose vei ns of lower extremity Lung cancer (CMS/HCC V24, CM S/HCC V28) 05/13/2023 Last Assessment & Plan: Ms. Doss is a 63-year-old female previously in the [facility] lung cancer screening program who on May 07, 2023 had a da Missy robotic right upper lobectomy and mediastinal lymphadenectomy for stage [id number] or stage Ib adenocarcinoma. Patient will be referred to medical oncology at [facility] for discussion of possible adjuvant chemotherap Family History Medical History Relation Name Comments [...] Sign Reading Time Taken Comments Blood Pressure 152/79 02/11/2025 11:10 AM EDT Pulse 73 02/11/2025 11:10 AM EDT Temperature 36.8 C (98.2 F) 02/11/2025 11:10 AM EDT Respiratory Rate 16 02/11/2025 11:10 AM EDT Oxygen Saturation 97% 02/11/2025 11:10 AM EDT Inhaled Oxygen Concentration - - Weight 102 kg (224 lb 14.4 oz) 02/11/2025 11:10 AM EDT Height 154.9 cm (5' 1 ) 02/11/2025 11:10 AM EDT Body Mass Index 42.49 02/11/2025 11:10 AM EDT Plan of Treatment Upcoming Encounters Date Type Department Care Team ([facility] st Contact Info) Description 05/17/2025 2:45 PM EDT Appointment [facility] CT Scan [address] [place] [phone] 05/27/2025 11:00 AM EDT Office Visit Thoracic Surgery - [place] [address] [facility] [address] [place] [phone] Alvina Armas PA [address] [facility], [address] [place] [address] Health Maintenance Due Date Last Done Comments Pneumococcal Vaccine: 50+ Years (2 of 2 [...] 2024 Hypertension/CHF/CAD Annual BMP Blood Test 07/06/2024 Depression Screening 08/19/2024 Breast Cancer Screening 08/28/2024 08/28/2022 COVID-19 Vaccine (8 - Moderna risk season) 2024 05/21/2024, 06/07/2023, 05/21/2022, Additional history exists Influenza Vaccine (#1) 2025 , 06/07/2023, 05/21/2022, Additional history exists Cholesterol Screening (Lipid Panel) 10/02/2027 10/02/2022 DTaP,Tdap,and Td Vaccines (3 - Td or Tdap) 09/09/2030 09/09/2020, 05/18/2005 Hepatitis A Vaccines Completed 09/08/2019, 02/18/20 19 Zoster Vaccines Completed 12/16/2020, 09/09/2020 HIB Vaccines Aged Out No longer eligi [...] Diagnosis Comments CT CHEST WO CONTRAST Routine 02/05/2025 2:42 PM EDT History of lung cancer Adrenal mass (CMS/HCC V24) from Last 3 Months Results * CT Chest wo Contrast (02/05/2025 2:42 PM EDT) Anatomical Region Laterality Modality Body Computed Tomogra phy 02/08/2025 3:17 PM EDT Impressions 02/08/2025 3:26 PM EDT Impression: 1. Very limited study due to significant respiratory motion artifact. 2. Stable right upper lobectomy sequela. 3. New patchy airspace disease at the base of the right lower lobe, likely infectious/inflammatory. Consider short-term follow-up in 3 months to document clearing. 3. No mediastinal lymphadenopathy identified. Telerad PA ([id number]) -------- FINAL REPORT -------- Dictated By: Stacy Welsh Dictated Date: 02/08/2025 15:17 ET Assigned Physician: Stacy Welsh Reviewed and Electronically Signed By: Stacy Welsh Signed Date: 02/08/2025 15:26 ET Workstation ID: [id number] Transcribed By: Self Edit Transcribed Date: 02/08/2025 15:17 ET Narrative 02/08/2025 3:26 PM EDT History: Non-small cell lung carcinoma, status post robotic right upper lobectomy and mediastinal lymphadenectomy on 05/07/23 (stage IB pulmonary adenocarcinoma), followed by 8 cycles of adjuvant chemotherapy. Surveillance imaging. Comparison: 07/06/24 Technique: Helical volumetric imaging of the thorax was performed without IV contrast. DLP: 1539.78 mGy/cm [employer] VCT Iterative reconstruction technique Findings: The study is quite limited due to respiratory motion artifact. Right upper lobectomy sequela are again noted. The right middle lobe bronchus is obscured by motion artifact and its patency is not established. The trachea and remaining central bronchial tree are patent. Mild patchy airspace disease is new at the base of the right lower lobe, likely infectious/inflammatory. The left lung is clear. The left thyroid lobe is enlarged and contains a 17 x 10 mm hypoattenuating nodule, reported previously, without significant change. No developing mediastinal lymphadenopathy is seen. Evaluation of the jose is limited due to motion artifact and the absence of IV contrast. Moderate multichamber cardiomegaly with three-vessel coronary artery calcification is again seen. No pleural or pericardial effusions are identified. A small portion of the upper abdomen included on the lowest images through the thorax is without significant abnormality. No suspicious osseous destructive lesion is identified. Procedure Note Stacy Welsh MD - 02/08/2025 History: Non-small cell lung carcinoma, status post robotic right upperlobectomy and mediastinal lymphadenectomy on 05/07/23 (stage IB pulmonaryadenocarcinoma), followed by 8 cycles of adjuvant chemotherapy.Surveillance imaging. Comparison: 07/06/24 Technique: Helical volumetric imaging of the thorax was performed withoutIV contrast. DLP: 1539.78 mGy/cm [employer] Iterative reconstruction technique Findings: The study is quite limited due to respiratory motion artifact. Right upper lobectomy sequela are again noted. The right middle lobebronchus is obscured by motion artifact and its patency is notestablished. The trachea and remaining central bronchial tree arepatent. Mild patchy airspace disease is new at the base of the right lower lobe,likely infectious/inflammatory. The left lung is clear. The left thyroid lobe is enlarged and contains a 17 x 10 mmhypoattenuating nodule, reported previously, without significant change.No developing mediastinal lymphadenopathy is seen. Evaluation of the hilais limited due to motion artifact and the absence of IV contrast. Moderatemultichamber cardiomegaly with three-vessel coronary artery calcificationis again seen. No pleural or pericardial effusions are identified. A small portion of the upper abdomen included on the lowest images throughthe thorax is without significant abnormality. No suspicious osseous destructive lesion is identified. IMPRESSION: Impression: 1. Very limited study due to significant respiratory motion artifact. 2. Stable right upper lobectomy sequela. 3. New patchy airspace disease at the base of the right lower lobe, likelyinfectious/inflammatory. Consider short-term follow-up in 3 months todocument clearing. 3. No mediastinal lymphadenopathy identified. Telerad KULWINDER ([id number]) -------- FINAL REPORT -------- Dictated By: Stacy Welsh Dictated Date: 02/08/2025 15:17 ET Assigned Physician: Stacy Welsh Reviewed and Electronically Signed By: Stacy Welsh Signed Date: 02/08/2025 15:26 ET Workstation ID: [id number] Transcribed By: Self Edit Transcribed Date: 02/08/2025 15:17 ET Sourav MIRAMONTES IMG CT PROCEDURES Final Result from Last 3 Months Insurance MEDICARE MEDICAID - [place] Care Teams Passenger Tire Inspector Relationship Specialty Start Date End Date Caren Murphy NP [address] [place] [phone] PCP - General 02/15/25
--- OUTSIDE RECORDS SUMMARY | 2025-03-30 08:07 | XMS_ITS | Encounter Summary ---
Author Organization [employer] Address [address] [place] [address] Care Team Providers Care Front Office Developer Name Role Phone Caren Murphy Primary Care Provider Reason for Visit * Reason Comments Med Refill Encounter Details Date Type Department Care Team ([facility] st Contact Info) Description 07/02/2023 Refill [facility] [address] [place] [address] Jerod Pruett MD [address] [place] [address] Uncomplicated opioid dependence (CMS/HCC) Social History Tobacco [...] t he electric, gas, oil or water [employer] threatened to shut off services in your [...] Care Team (Late st Contact Info) Description 04/13/2025 9:15 AM EDT Office Visit [facility] [address] [place], [place] [phone] Jerod Pruett MD [address] [place] [address] documented as of this encounter Visit Diagnoses Diagnosis Uncomplicated opioid dependence (CMS/HCC) documented in this encounter Care Teams Front Office Developer Relationship Specialty Start Date End Date Caren Murphy ANP [address] [place] [address] PCP - General Family Medicine 04/14/22 documented as of this encounter
[2025-03-30 12:36] LABS: Anion Gap 12 (12-20); Blood Urea Nitrogen 13 mg/dL (9-16); Calcium 9.6 mg/dL (8.4-10.2); Carbon Dioxide 30 mmol/L (22-29); Chloride 107 mmol/L (96-108); Estimated Glomerular Filt Rate > 60; Magnesium 2.1 mg/dL (1.6-2.6); Potassium 4.2 mmol/L (3.3-5.1); Sodium 145 mmol/L (135-145)
== END 2025-03-30 08:03 | disposition home or self-care (01) ==
LOC: HO.HHCL 08:02
PROVIDERS: PCP Nurse Practitioner; Visit Provider Nurse Practitioner
DX: R25.1 Tremor, unspecified (principal)
CPT/HCPCS: 36415; 80048; 83735; 84443

== ENCOUNTER 2025-04-30 08:47 | Outpatient (AMB) | payer MEDICARE, MEDICAID, SELFPAY ==
--- NOTE | 2025-04-30 09:04 | MHC.OFFVIS ---
Vital Signs 04/30/25 09:06 Height 5 ft 1 in Weight 209 lb 14.081 oz BMI 39.7 BP 144/90 H Blood Pressure Location Lt brachial Position Sitting Pulse 74 Pulse Source Monitor Intake Visit Reasons: 6mo follow-up Hand Candy Molder Required: Yes Hand Candy Molder Language: Bacon De Rinder Name: [email or web address] [id number] Allergies No Known Allergies Allergy (Verified 04/30/25 09:12) Medication List - Last Reconciled 04/30/25 by LEO Ruiz albuterol sulfate 90 mcg/actuation (Ventolin HFA) 2 puffs inhalation QID amitriptyline 25 mg PO BEDTIME aspirin (Adult Low Dose Aspirin) 81 mg PO DAILY buprenorphine-naloxone 2-0.5 mg (Suboxone) 3 film buccal DAILY cholecalciferol (vitamin D3) 25 mcg PO DAILY dexamethasone 4 mg PO BID divalproex (Depakote) 1,000 mg PO ONCE docusate sodium (Colace) 100 mg PO BID PRN folic acid 1 mg PO DAILY furosemide 40 mg orally 1 tab additional as needed not more than 2; hydroxyzine pamoate 25 mg PO BID PRN lisinopril 40 mg PO DAILY loratadine (Allergy Relief (loratadine)) 10 mg PO DAILY melatonin 1 mg PO BEDTIME PRN metoprolol succinate ER 25 mg PO DAILY 90 days montelukast (Singulair) 10 mg PO DAILY naloxone 4 mg/actuation (Narcan) 4 mg intranasal Q3M PRN olanzapine 15 mg PO DAILY ondansetron 8 mg PO Q8H pantoprazole 40 mg PO DAILY polyethylene glycol 3350 (Miralax) 17 grams PO DAILY prazosin 4 mg PO BEDTIME sennosides (Senokot) 8.6 mg PO DAILY simvastatin 80 mg PO DAILY umeclidinium-vilanterol 62.5-25 mcg/actuation (Anoro Ellipta) 1 ea inhalation DAILY 30 days HPI HPI 6mo follow-up: Details: Rosalba is a 65-year-old female past medical history of morbid obesity, hypertension, left bundle branch block, cardiomyopathy, obstructive sleep apnea, mild aortic stenosis, lung CA who presents for follow-up. Her last prior visit was 10/10/2023. Today she reports she has been doing well overall since her last visit. She continues to have the same type of vague chest discomfort that can occur at rest and with activity. She is also reporting rapid heartbeats, tachycardia that causes discomfort for her. She has shortness of breath with exertional activities which is not new. In all her symptoms have not changed much in the last year and a half. She tries to remain physically active and takes care of her 2 young grandson's. She takes her medications as directed. Certified assistant kitchen manager used. [facility] Medical History Morbid obesity Nicotine dependence, cigarettes, uncomplicated Substance abuse Hepatitis C Varicose veins of both lower extremities COURTNEY (obstructive sleep apnea) Surgical History History of right breast biopsy History of cardiac cath History of esophagogastroduodenoscopy (EGD) History of colonoscopy History of delivery History of tubal ligation Family History Mother History of lung cancer Brother History of lung cancer Social History Household Members: Family Alcohol intake: current Alcohol intake frequency: holidays/special occasions only Patient Tobacco Use Status: Current everyday Tobacco user Years Smoked: (onset 12yo, x 50yrs, max 3ppd, mostly 1ppd, now 1/4ppd - 50phy) Substance Use Type: Marijuana service: No Current occupational status: retired Review of Systems Const All systems reviewed & are unremarkable except as noted in HPI and below ENT Denies dizziness Card Reports chest pain, Reports chest pain at rest, Reports chest pain with activity, Reports rapid heart rate, Denies pedal edema, Denies edema, Denies leg edema, Denies lightheadedness, Denies palpitations, Reports dyspnea, Reports dyspnea on exertion and Denies orthopnea Resp Denies cough, Reports dyspnea and Reports dyspnea on exertion GI Denies hematochezia and Denies change in stool character Musc Denies abnormal gait, Denies limited range of motion, Denies muscle cramps, Denies muscle weakness, Denies numbness, Denies radiating pain into limb, Denies stiffness and Denies tingling Neuro Denies abnormal gait, Denies dizziness, Denies numbness and Denies tingling Endo Denies palpitations Physical Exam Vital Signs: Last Vital Signs Pulse 74 04/30/25 09:06 BP 144/90 H 04/30/25 09:06 BMI result Body Mass Index 39.7 Const General: cooperative, healthy appearing, comfortable and no acute distress Orientation/consciousness: patient oriented x3 Neck Neck: Yes normal visual inspection and Yes no JVD Resp Effort & Inspection: normal respiratory effort Auscultation: clear to auscultation bilaterally, no rales, no rhonchi and no wheezes Cardio Jugular venous distension: no JVD Rate: regular rate Rhythm: regular rhythm Heart sounds: S1 normal heart sound present, S2 normal heart sound present, no murmurs and no rubs Neuro General: patient oriented x3 Extrem General: Yes normal to inspection Psych Appearance: grossly normal Mental Status: mental status grossly normal Speech and movement: Normal speech and movement present Office Procedures EKG Details: Today, read by me, sinus rhythm with left axis deviation, left bundle branch block, rate 74, QTC 472 millisecond [id number], Complete Assessment & Plan Assessment & Plan (1) Chest discomfort: Code(s): R07.89 - Other chest pain Category: Medical Plan: Prior and current reports of vague chest discomfort and shortness of breath at rest and with activity. Cardiac evaluation includes: Echocardiogram done 10/02/2022 showed EF 58%, moderate increase in LV thickness, mild aortic stenosis. EKG done on 03/25/2023 showing sinus rhythm with 1 PVC, left bundle branch block, rate 81, nondiagnostic for ischemia. Pharmacological nuclear stress test done on 03/28/2023 showing anterior rate and apical ischemia with fixed septal defect which could represent prior HI, these findings could also be seen in patients with left bundle branch block, EF 45%. She has history of left bundle branch block, no known history of coronary artery disease or prior HI. She does have cardiac risk factors of morbid obesity, hypertension, smoking. She continues to report ongoing symptoms overall unchanged since last visit. With her left bundle branch block will update echocardiogram. Based on echo results will consider CTA of the coronary arteries. She is stating heart palpitations so will check a Holter monitor. Ccontinue aspirin 81 mg daily, simvastatin 80 mg daily. [place] LDL goal less than 70. Continue metoprolol. Cardiology follow-up 6 months, sooner if needed. (2) Left bundle branch block: Code(s): I44.7 - Left bundle-branch block, unspecified Category: Medical Plan: Chronic. In some cases left bundle branch block can cause cardiomyopathy. Will be updating echo. (3) Essential hypertension: Code(s): I10 - Essential (primary) hypertension Category: Medical Plan: Blood pressure goal less than 130/80. Mildly elevated today. At this time will have her continue metoprolol, lisinopril and Lasix. Low-salt diet reviewed. Blood pressure remains elevated on follow-up visits her metoprolol dose could be increased. (4) Dyspnea on exertion: Code(s): R06.00 - Dyspnea, unspecified Category: Medical Plan: Shortness of breath with activity which could be multifactorial in nature. She is morbidly obese and may have deconditioning. Cardiac testing as above. No clinical signs of heart failure on examination (5) Morbid obesity: Code(s): E66.01 - Morbid (severe) obesity due to excess calories Category: Medical Plan: As above (6) Palpitations: Code(s): R00.2 - Palpitations Category: Medical Plan: She is reporting heart palpitations, tachycardia which is occurring randomly. She says the episodes can last up to 15 minutes and occur most days. Will check a Holter monitor and update echocardiogram. Continue metoprolol. Plan Time spent on chart review, documentation, interview and assessment Orders: Orders CA echo transthoracic complete Today I44.7 - Left bundle-branch block, unspecified, R07.89 - Other chest pain ECG 3 day holter monitor Today R00.2 - Palpitations Coding Level of Care Code Est Pt Level 4 (14823) Complex EM visit Add On G2211 Diagnoses Chest discomfort R07.89 Left bundle branch block I44.7 Essential hypertension I10 Dyspnea on exertion R06.00 Morbid obesity E66.01 Palpitations R00.2 CPT Codes EKG - CPT: 29400-[id number], Complete ([id number]) Time Spent (min) 32
[2025-04-30 09:06] VITALS: BP 144/90; PULSE 74; BMI 39.7
--- OUTSIDE RECORDS SUMMARY | 2025-04-30 09:27 | XMS_ITS | Clinical Summary ---
Author Organization [facility] [address] [facility] Address [address] [place] [address] Phone Care Team Providers Care Bell Valet Name Role Phone Caren Murphy NP Primary Care Provider [phone] Allergies No known active allergies Medications albuterol [...] receive adjuvant chemotherapy with her oncologist at [facility]. The patient's most recent surveillance chest [...] She was referred to medical onocology at [facility] and completed 8 cycles of adjuvant chemotherapy and denies any immunotherapy. 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 Lung cancer ([facility] V24, [facility] V28) 05/13/2023 02/12/2025 Overview (06/02/2024): Last Assessment & Plan: Ms. Doss is a 63-year-old female previously in the [facility] lung cancer screening program who on May 07, 2023 had a da Missy robotic right upper lobectomy and mediastinal lymphadenectomy for stage [id number] or stage Ib adenocarcinoma. Patient will be referred to medical oncology at [facility] for discussion of possible adjuvant [...] which should both take place at [facility]. While patient was in office today her [...] AM EDT Office Visit Thoracic Surgery - [place] [address] [facility] [address] [place] [phone] Alvina Armas PA Pulmonary nodules (Primary Dx); History of lung cancer 02/05/2025 2:20 PM EDT - 02/05/2025 11:59 PM EDT Hospital Encounter [facility] CT Scan [address] [place] [address] History of lung cancer; Adrenal mass ([facility] V24) Discharge Disposition: Home or Self Care from Last 3 Months Surgical History Surgery Date Site/Laterality Comments CARDIAC CATHETERIZATION N/A PROCEDURE: HISTORICAL CARDIAC CATH SECTION N/A PROCEDURE: HISTORICAL DELIVERY COLONOSCOPY N/A PROCEDURE: HISTORICAL COLONOSCOPY BREAST BIOPSY Right PROCEDURE: FL BIOPSY BREAST OPEN INCISIONAL TUBAL LIGATION PROCEDURE: HISTORICAL TUBAL LIGATION OTHER SURGICAL HISTORY 05/07/2023 Right PROCEDURE: FL THORACOSCOPY W/LOBECTOMY SINGLE LOBE; COMMENT: RUL wedge THYROID BIOPSY 07/10/2024 at [facility] History Medical History Date Comments Hepatitis [...] is a 63-year-old female previously in the [facility] lung cancer screening program who on May 07, 2023 had a da Missy robotic right upper lobectomy and mediastinal lymphadenectomy for stage [id number] or stage Ib adenocarcinoma. Patient will be referred to medical oncology at [facility] for discussion of possible adjuvant chemotherap [...] Care Team (Late st Contact Info) Description 05/17/2025 2:45 PM EDT Appointment [facility] CT Scan [address] [place] [phone] 05/27/2025 11:00 AM EDT Office Visit Thoracic Surgery - [place] [address] [facility] [address] [place] [phone] Alvina Armas PA [address] [place] [address] Health Maintenance Due Date Last Done Comments [...] COVID-19 Vaccine (8 - Moderna risk season) 2025 05/21/2024, 06/07/2023, 05/21/2022, Additional history exists Influenza [...] 3. No mediastinal lymphadenopathy identified. Telerad PA ([id number]) -------- FINAL REPORT -------- Dictated By: Stacy Welsh Dictated Date: 02/08/2025 15:17 ET Assigned Physician: Stacy Welsh Reviewed and Electronically Signed By: Stacy Welsh Signed Date: 02/08/2025 15:26 ET Workstation ID: [id number] Transcribed By: Self Edit Transcribed Date: 02/08/2025 15:17 ET Narrative 02/08/2025 3:26 PM EDT History: Non-small cell lung carcinoma, status post robotic right upper lobectomy and mediastinal lymphadenectomy on 05/07/23 (stage IB pulmonary adenocarcinoma), followed by 8 cycles of adjuvant chemotherapy. Surveillance imaging. Comparison: 07/06/24 Technique: Helical volumetric imaging of the thorax was performed without IV contrast. DLP: 1539.78 mGy/cm SetMeUp VCT Iterative reconstruction technique Findings: The study [...] was performed withoutIV contrast. DLP: 1539.78 mGy/cm LemonT Iterative reconstruction technique Findings: The study is [...] 3. No mediastinal lymphadenopathy identified. Telerad KULWINDER ([id number]) -------- FINAL REPORT -------- Dictated By: Stacy Welsh Dictated Date: 02/08/2025 15:17 ET Assigned Physician: Stacy Welsh Reviewed and Electronically Signed By: Stacy Welsh Signed Date: 02/08/2025 15:26 ET Workstation ID: [id number] Transcribed By: Self Edit Transcribed Date: 02/08/2025 15:17 ET Sourav MIRAMONTES IMG CT PROCEDURES Final Result from Last 3 Months Insurance MEDICARE MEDICAID - [place] Care Teams Bell Valet Relationship Specialty Start Date End Date Caren Murphy NP [address] [place] [id number] PCP - General 02/15/25
--- OUTSIDE RECORDS SUMMARY | 2025-04-30 09:27 | XMS_ITS | Encounter Summary ---
Author Organization [employer] Address [address] [facility] [address] [place] [address] Care Team Providers Care Assistant Media Planner Name Role Phone Caren Murphy Primary Care Provider [phone] Encounter Details Date Type Department Care Team ([facility] Contact Info) Description 02/09/2025 Orders Only [facility] [address] [place] [address] Provider, MD Vineet Social History Tobacco Use [...] Care Team (Late st Contact Info) Description 06/02/2025 3:15 PM EDT Office Visit [address] [address] Caren Murphy ANP [address] [place] [address] 07/06/2025 9:15 AM EST Office Visit [address] [address] Jerod Pruett MD [address] [place] [phone] documented as of this encounter Procedures Procedure Name Priority Date/Time Associated Diagnosis Comments CT CHEST WO CONTRAST Routine 02/05/2025 9:40 AM EDT documented in this encounter Results * CT CHEST WO CONTRAST (02/05/2025 9:40 AM EDT) Anatomical Region Laterality Modality Computed Tomogra phy us Historical Provider MD IBARRA CT PROCEDURES Final R esult documented in this encounter Visit Diagnoses Not on filedocumented in this encounter Additional Health Concerns Assessment Noted Time PHQ-9 Depression Total Score: 0 09/29/19 25 8:54 AM EST documented as of this encounter Care Teams Assistant Media Planner Relationship Specialty Start Date End Date Caren Murphy ANP [address] [place] [address] [place] [address] PCP - General Family Medicine 04/14/22 documented as of this encounter
--- OUTSIDE RECORDS SUMMARY | 2025-04-30 09:27 | XMS_ITS | Encounter Summary ---
Author Organization [employer] Address [address] [facility] [address] [place] [address] Care Team Providers Care Bleach Plant Operator Name Role Phone Caren Murphy Primary Care Provider [phone] Encounter Details Date Type Department Care Team ([facility] Contact Info) Description 07/09/2024 Orders Only [facility] [address] [place] [address] Provider, MD Vineet Social History Tobacco Use [...] Description 06/02/2025 3:15 PM EDT Office Visit [address] [address] Caren Murphy ANP [address] [place] [address] 07/06/2025 9:15 AM EST Office Visit [address] [address] Jerod Pruett MD [address] [place] [address] documented as of this encounter Procedures Procedure [...] documented as of this encounter Care Teams Bleach Plant Operator Relationship Specialty Start Date End Date Caren Murphy ANP [address] [place] [address] PCP - General Family Medicine 04/14/22 documented as of this encounter
--- OUTSIDE RECORDS SUMMARY | 2025-04-30 09:27 | XMS_ITS | Encounter Summary ---
Author Organization [employer] Address [address] [facility] [facility] [address] [place] [address] Care Team Providers Care Finisher [employer] Name Role Phone Caren Murphy Primary Care Provider [phone] Reason for Visit * Reason Comments Med Refill Encounter Details Date Type Department Care Team ([facility] st Contact Info) Description 02/11/2024 Refill [facility] [address] [place] [address] Jerod Pruett MD [address] [place] [address] Uncomplicated opioid dependence (CMS/HCC) Social History Tobacco [...] Description 06/02/2025 3:15 PM EDT Office Visit [facility] [address] [place] [address] Caren Murphy ANP [address] [place] [address] 07/06/2025 9:15 AM EST Office Visit [address] [address] Jerod Pruett MD [address] [place] [address] documented as of this encounter Visit Diagnoses Diagnosis Uncomplicated opioid dependence (CMS/HCC) documented in this encounter Additional Health Concerns Assessment Noted Time PHQ-9 Depression Total Score: 16 024 1:07 PM EDT documented as of this encounter Care Teams Finisher [employer] Relationship Specialty Start Date End Date Caren Murphy ANP [address] [place] [address] PCP - General Family Medicine 04/14/22 documented as of this encounter
--- OUTSIDE RECORDS SUMMARY | 2025-04-30 09:27 | XMS_ITS | Clinical Summary ---
Author Organization [employer] Address [address] [facility] [address] [place] [address] Care Team Providers Care Electric Arc Furnace Operator Name Role Phone Marianna Chow HERMILO Primary Care Provider [phone] Allergies Active Allergy Reactions Criticality Noted Date [...] by mouth at bedtime. Active nystatin (Mycostatin) 262929 UNIT/GM powder Apply topically every 12 (twelve) hours. To the affected area(s) Active Blood Pressure Monitoring (Blood Pressure Cuff) mis Fot htn. Please teach patient how to use and track BP Active Naloxone HCl (NARCAN NA) Administer into affected nostril(s). [place] 0.1 mL by intranasal route in 1 nostril may repeat dose every 2-3 minutes as needed alternating nostrils with each dose. Active Respiratory Therapy Supplies (Nebulizer/Tubing /Mouthpiece) kitIndications:As [...] AT BEDTIME NEEDED FOR SLEEP 023 Active mupirocin (Bactroban) 2 % ointmentIndicatio ns:Ulcer of right lower extremity, limited to breakdown of skin (CMS/HCC) Use BID as needed for wound 22 g 024 Active metoprolol succinate XL (Toprol-XL) 25 MG 24 hr tablet Take 25 mg by mouth in the morning. 024 Active folic acid (Folvite) 1 MG tablet Take 1,000 mcg by mouth Once per day. 024 Active potassium chloride CR (Klor-Con M20) 20 MEQ ER tablet TAKE 1 TABLET BY MOUTH ONCE DAILY FOR 5 DAYS. DO NOT BREAK, CRUSH, DISSOLVE OR CHEW 025 Active pantoprazole (ProtoNix) 40 MG EC tablet TAKE 1 TABLET BY MOUTH EVERY MORNING 90 tablet 3 025 Active montelukast (Singulair) 10 MG tablet TAKE 1 TABLET BY MOUTH EVERY EVENING 90 tablet 1 025 Active Ventolin HFA 108 (90 Base) MCG/ACT inhalerIndication s:Asthma-chronic obstructive pulmonary disease overlap syndrome (CMS/HCC) INHALE 2 PUFFS BY MOUTH EVERY 6 HOURS NEEDED FOR WHEEZING 18 g 1 025 Active D3 Super Strength 50 MCG (2000 UT) capsule TAKE 1 CAPSULE BY MOUTH EVERY MORNING 90 capsule 3 025 Active Aspirin Low Dose 81 MG EC tabletIndications :Hyperlipidemia, unspecified hyperlipidemia type,Cardiomyopat hy, unspecified type (CMS/HCC) TAKE 1 TABLET BY MOUTH EVERY MORNING 90 tablet 1 025 Active docusate sodium (Colace) 100 MG capsuleIndication s:Constipation, unspecified constipation type TAKE 1 CAPSULE BY MOUTH AT BEDTIME 90 capsule 1 025 Active lisinopril 40 MG tabletIndications :Primary hypertension TAKE 1 TABLET BY MOUTH EVERY MORNING 90 tablet 1 025 Active loratadine (Claritin) 10 MG tabletIndications :Environmental and seasonal allergies TAKE 1 TABLET BY MOUTH EVERY MORNING 90 tablet 1 025 Active simvastatin (Zocor) 80 MG tabletIndications :Hyperlipidemia, unspecified hyperlipidemia type TAKE 1 TABLET BY MOUTH AT BEDTIME 90 tablet 1 025 Active Anoro Ellipta 62.5-25 MCG/ACT aerosol powderIndications :Asthma-chronic obstructive pulmonary disease overlap syndrome (CMS/HCC) INHALE 1 PUFF BY MOUTH EVERY DAY AT THE SAME TIME RINSE MOUTH AFTER USING 60 each 2 025 Active Buprenorphine HCl-Naloxone HCl (Suboxone) 8-2 MG SL filmIndications:O pioid use disorder in remission Place 1 Film under the tongue Once per day. 28 Film 2 025 2024 Active buprenorphine-nal oxone (Suboxone) 2-0.5 MG per sublingual filmIndications:O pioid use disorder in remission Place 2 Film under the tongue Once per day. 56 Film 2 025 2024 Active OLANZapine (ZyPREXA) 5 MG tabletIndications :Depressed bipolar I disorder (CMS/HCC) Take 1 tablet (5 mg) by mouth at bedtime. 30 tablet 1 Active OLANZapine (ZyPREXA) 10 MG tablet TAKE 1 TABLET BY MOUTH AT BEDTIME 023 2024 Discontinued(R eorder (will not trigger notification to Pharmacy)) Anoro Ellipta 62.5-25 MCG/ACT aerosol powderIndications :Asthma-chronic obstructive pulmonary disease overlap syndrome (CMS/HCC) INHALE 1 PUFF BY MOUTH EVERY DAY IN THE MORNING AT THE SAME TIME RINSE MOUTH AFTER USING. 60 each 2 025 2024 Discontinued Buprenorphine HCl-Naloxone HCl (Suboxone) 8-2 MG SL filmIndications:O pioid use disorder in remission Place 1 Film under the tongue Once per day. 28 Film 2 025 2024 Discontinued(R eorder (will not trigger notification to Pharmacy)) buprenorphine-nal oxone (Suboxone) 2-0.5 MG per sublingual filmIndications:O pioid use disorder in remission Place 2 Film under the tongue Once per day. 56 Film 2 025 2024 Discontinued(R eorder (will not trigger notification to Pharmacy)) Active Problems Problem Noted Date Diagnosed Date Neck pain 12/08/2024 Thyroid nodule greater than or equal to [...] and mediastinal lymphadenectomy and s/p chemotherapy From [facility] thoracic notes 05/07/23, 05/21/23 (visit at which [...] history of coronary artery disease or prior MN. She does have cardiac risk factors of morbid obesity, hypertension, smoking. Pharmacological nuclear stress test done on 03/28/2023 showing anterior rate and apical ischemia with fixed septal defect which could represent prior MN, these findings could also be seen in patients with left bundle branch block, EF 45%. She is on aspirin 81 mg daily, simvastatin 80 mg daily. Cass LDL goal less than 70. Heart failure [...] Encounters Date Type Department Care Team Description 04/13/2025 9:15 AM EDT Office Visit [facility] [address] [place] [phone] Jerod Pruett MD Opioid use disorder in remission (Primary Dx) 04/13/2025 Travel 04/05/2025 1:00 PM EDT Office Visit [facility] [address] [place] [phone] Marianna Chow ANP Tremor of both hands (Primary Dx); Depressed bipolar I disorder ([facility]); Screening mammogram for breast cancer 04/05/2025 Travel 04/05/2025 Refill [facility] [address] [place] [address] Rhoda Muhammad, RN Opioid use disorder in remission 04/05/2025 Refill [facility] [address] [place] [address] Rhoda Muhammad, RN Opioid use disorder in remission 04/02/2025 Telephone [facility] [address] [place] [phone] Marianna Chow ANP chart prep 04/02/2025 Refill [facility] [address] [place] [address] Newton Muller MD Asthma-chronic obstructive pulmonary disease overlap syndrome (CMS/HCC) 03/30/2025 Orders Only [facility] [address] [place] [address] Marianna Chow ANP 03/30/2025 Results Follow-Up [facility] [address] [place] [address] AppramPriyanka, ROBERT TSH W/Reflex to FT4, Basic Metabolic Panel, Magnesium 03/29/2025 6:00 PM EDT Office Visit [facility] [address] [place] [address] Priyanka Fitzgerald, ROBERT Tremor of both hands (Primary Dx); Cardiac murmur 03/29/2025 Travel 02/09/2025 Orders Only [facility] [address] [place] [address] ProviderVineet MD 02/07/2025 Refill [facility] [address] [place] [address] Marianna Chow ANP Hyperlipidemia, unspecified hyperlipidemia type; Cardiomyopathy, unspecified type (CMS/HCC); Constipation, unspecified constipation type; Primary hypertension; Environmental and seasonal allergies 02/05/2025 Results Follow-Up [facility] [address] [place] [phone] Marianna Chow ANP Metanephrines, Fractionated, LC/MS/MS, 24-Hour Urine, Aldosterone/Plasma Renin Activity Ratio, LC/MS/MS from Last 3 Months Immunizations Immunization Administration Dates Next Due Hep A, Adult [...] Pfizer Covid-19 Vaccine 12+ Bivalent 05/21/2022 Pneumococcal Conjugate PCV 20 04/05/2025 Pneumococcal Polysaccharide PPSV23 09/30/2009 Pneumococcal, Unspecified 09/30/2009 TD (adult), 2 Lf tetanus tox oid, preservative free, adsorbed 05/18/2005 Tdap 09/09/2020 Zoster, Recombinant 12/16/2020,09/09/2020 Family History Medical History Relation Name Comments Lung cancer Brother not heavy smoke r Lung cancer Mother Relation Name Status Comments Brother Mother Social History Tobacco Use Types Packs/Day Years Used Date Smoking Tobacco: Former Cigarettes Passive Smoke Exposure: Past Smokeless Tobacco: Never Tobacco Cessation:Counseling Given: Not Answered Comments:Quiet 8 month Alcohol Use Standard Drinks/Week Comments Yes 0 (1 standard drink = 0.6 oz pur e alcohol) Socially Alcohol Answer Date Recorded Frequency of Alcohol Consumption Not on file 01/31/2024 Average Number of Drinks Not on file 024 Frequency of Binge Drinking Not on file 01/17 Score 0 01/31/2024 Depression Answer Date Recorded Patient Health Questionnaire-9 Score 0 04/05/2025 Patient Health Questionnaire-9 Score 0 04/05/2025 Last PHQ-9: Questionnaire Data Not on file 0 04/05/2025 Housing Stability Answer Date Recorded What is your housing situation today? I have miguelito burgos 04/05/[address] you li ve. Do you have problems with any of the following? None of the above 04/05/2025 Food Insecurity Answer Date Recorded Within the past 12 months, y ou worried that your food would run out before you got money to buy more: Never True 04/05/2025 Within the past 12 months,th e food you bought just didn't last and you didn't have enough money to get more: Never True Transportation Answer Date Recorded In the past 12 months, has l ack of transportation kept you from medical appts, meetings, work or from getting things needed for daily living? No 04/05/2025 Utilities Answer Date Recorded In the past 12 months, has t he electric, gas, oil or water company threatened to shut off services in your home? No 04/05/2025 Depression Answer Date Recorded Patient Health Questionnaire-2 Score 0 04/05/2025 Internet Access Answer Date Recorded Internet Access Q1 Yes 04/05/2025 Internet Access Q2 Not on file 04/05/2025 Comments Unknown Sex and Gender Information Value Date Recorded Sex Assigned at Female 06/18/2022 10:18 AM EDT Legal Sex Female 10:18 AM EDT Gender Identity Female 06/18/2022 10:18 AM EDT Sexual Orientation Don't know 06/18/2022 10 :18 AM EDT Last Filed Vital Signs Vital Sign Reading Time Taken Comments Blood Pressure 130/96 04/05/2025 1:07 PM EDT Pulse 60 04/05/2025 1:07 PM EDT Temperature 36.3 C (97.4 F) 04/05/2025 1:07 PM EDT Respiratory Rate 20 04/05/2025 1:07 PM EDT Oxygen Saturation 94% 04/05/2025 1:07 PM EDT Inhaled Oxygen Concentration - - Weight 98.5 kg (217 lb 3.2 oz) 04/05/2025 1:07 P M EDT Height 154.9 cm (5' 1 ) 04/05/2025 1:07 PM EDT Body Mass Index 41.04 04/05/2025 1:07 PM EDT Plan of Treatment Upcoming Encounters Date Type Department Care Team (Late st Contact Info) Description 06/02/2025 3:15 PM EDT Office Visit [facility] [address] [place] [phone] Marianna Chow ANP [address] [place] [phone] 07/06/2025 9:15 AM EST Office Visit [facility] [address] [place] [phone] Jerod Pruett MD [address] [place] [phone] Health Maintenance Due Date Last Done Comments CT Colonography 1960 FIT DNA/Cologuard 1960 FIT 1960 FOBT 1960 Sigmoidoscopy 1960 Hepatitis B Vaccines (1 of 3 - Risk 3-dose series) 2019 RSV Patients and Patients Aged 60 years or older (1 - Risk 60-74 years 1-dose series) 2019 Mammogram 08/28/2023 08/28/2022, 07/20, 07/25/2020, Additional history exists COVID-19 Vaccine ( season) 2025 05/21/2024, 06/07/2023, 05/21/2022, Additional history exists Influenza Vaccine (#1) 2025 , 06/07/2023, 05/21/2022, Additional history exists Diabetes: Hemoglobin A1C 11/24/2025 025, 01/31/2024, 10/14/2020, Additional history exists HPV/Cotest 01/13/2026 01/13/2021 Pap Smear 01/13/2026 01/13/2021 Alcohol/Substance Use Screening 04/05/2026 04/05/2025 Depression Screening 04/05/2026 04/05/2025, 04/05/20 25 SDOH Screening 04/05/2026 04/05/2025 Tobacco Screening 04/05/2026 04/05/2025 Colonoscopy 04/19/2026 04/19/2016 Colorectal Cancer Screening 04/19/2026 Lipid Panel 10/02/2027 10/02/2022, 09/20, 06/13/2020 DTaP/Tdap/Td Vaccines (2 - Td or Tdap) 09/09/2030 09/09/2020, 05/18/2005 Hepatitis A Vaccines Completed 09/08/2019, 09/08/2019, 02/17/2019 Zoster Vaccines Completed 12/16/2020, 09/09/2020 Pneumococcal Vaccine: 50+ Years Completed 04/05/2025, 09/30/2009, 09/30/2009 HIB Vaccines Aged Out No longer eligi [...] Procedure Name Priority Date/Time Associated Diagnosis Comments MAGNESIUM Routine 03/30/2025 8:18 AM EDT Tremor of both hands BASIC METABOLIC PANEL Routine 03/30/2025 8:18 AM EDT Tremor of both hands TSH W/REFLEX TO FT4 Routine 03/30/2025 8 :18 AM EDT Tremor of both hands CT CHEST WO CONTRAST Routine 02/05/2025 9:40 AM EDT HEMOGLOBIN A1C Routine 11/24/2024 8:13 AM EDT Elevated hemoglobin A1c Prediabetes LIPID PANEL, STANDARD Routine 10/02/2022 12:24 PM EST BI MAMMOGRAM SCREENING TOMOSYNTHESIS BILATERAL Routine 08/28/2022 2:50 PM EST HPV MRNA E6/E7 Routine 01/13/2021 10:02 AM EDT THINPREP PAP Routine 01/13/2021 10:02 AM EDT HM COLONOSCOPY Routine 04/19/2016 from Last 3 Months or Most Recently Relevant to Health Maintenance Results * TSH W/Reflex to FT4 (03/30/2025 8:18 AM EDT) TSH reflex Free T4 1.60 0.32 - 4.0 uIU/mL [facility] Blood Venous blood specimen / Unknown 03/30/2025 8:18 AM EDT 03/30/2025 11:18 AM EDT Priyanka Hoskins HOSIERY MENDER LAB BLOOD ORDERABLES Final Resu lt Performing Organization Address [facility]/ZIP Co de Phone Number [facility] [address] [place] [phone] * Magnesium (03/30/2025 8:18 AM EDT) Magnesium 2.1 1.6 - 2.6 mg/dL [facility] Blood Venous blood specimen / Unknown 03/30/2025 8:18 AM EDT 03/30/2025 11:18 AM EDT Priyanka Gato HOSIERY MENDER LAB BLOOD ORDERABLES Final Resu lt Performing Organization Address City/[facility] Co de Phone Number [facility] [address] [place] [phone] * (ABNORMAL) Basic Metabolic Panel (03/30/2025 8:18 AM EDT) Sodium 145 135 - 145 mmol/L [facility] Potassium 4.2 3.3 - 5.1 mmol/L [facility] Chloride 107 96 - 108 mmol/L [facility] Carbon Dioxide 30(H) 22 - 29 mmol/L [facility] Anion Gap 12 12 - 20 [facility] Urea Nitrogen (BUN) 13 9 - 16 mg/dL [facility] Creatinine, Serum 0.65 0.5 - 1.4 mg/dL [facility] Estimated Glomerular Filt Rate >60 [facility] Comment:Chronic Kidney Disea se: Estimated GFR < 60 mL/min/1.88y7Hcyemr Kidney Disease: Estimated GFR < 15 mL/min/1.73m2 Glucose 121(H) 60 - 115 mg/dL [facility] Calcium 9.6 8.4 - 10.2 mg/dL [facility] Blood Venous blood specimen / Unknown 03/30/2025 8:18 AM EDT 03/30/2025 11:18 AM EDT Priyanka Fitzgerald HOSIERY MENDER LAB BLOOD ORDERABLES Final Resu lt Performing Organization Address [facility] Co de Phone Number [facility] [address] [place] [phone] [phone] * CT CHEST WO CONTRAST (02/05/2025 9:40 AM EDT) Anatomical Region Laterality Modality Computed Tomogra phy Historical Provider IMG CT PROCEDURES Final R esult * Hemoglobin A1c (11/24/2024 8:13 AM EDT) Hemoglobin A1c 5.7 <6.0 % [facility] Comment:Hemoglobin A1C Refer ence Range Adults: 4.8 - 6.0 % Non diabetic: < 6.0 % Goal: < 7.0 %Additional Action Suggested: > 8.0 %Note: Hemoglobin A1c results are invalid for patients with abnormal amounts of HbF. Blood transfusions may impact the HbA1c concentration in the patient sample. Estimated Average Glucose 117 mg/dL [facility] Comment:eAG = Estimated ave rage glucose which is %A1C expressed asaverage glucose, using the formula of the S5W-BwwydegLwjgwcl Glucose study (ADAG), Diabetes Care, Vol.31,#8,Mar. 2007 Blood Venous blood specimen / Unknown 11/24/2024 8:13 AM EDT 11/24/2024 11:07 AM EDT Marianna Chow ANP LAB BLOOD ORDERABLES Final Resul t Performing Organization Address [facility]/ZIP Co de Phone Number [facility] [address] [place] [phone] * Lipid Panel, Standard (10/02/2022 12:24 PM EST) Triglycerides 99 mg/dL [facility] Comment:Desirable Triglyceri de: less than 150 mg/dLBorderline High Triglyceride 150-199 mg/dLHigh Triglyceride: 200-499 mg/dLVery High Triglyceride: greater than or equal to 5OO mg/dL Cholesterol 180 mg/dL [facility] Comment:Desirable Cholestero l: less than 200 mg/dLBorderline High Cholesterol: 200-239 mg/dLHigh Cholesterol: greater than 239 mg/dL LDL Cholesterol Calculated 106 mg/dl [facility] Comment:Desirable LDL: less than 100 mg/dLNear Optimal/Above Optimal LDL: 110- 129 mg/dLBorderline High LDL: 130-159 mg/dLHigh LDL: 160-189 mg/dLVery High LDL: greater than or equal to 190 mg/dL HDL Cholesterol 55 mg/dL [facility] Comment:Desirable HDL: great er than 40 mg/dL Note: This HDL assay may give artificially low results in patients with liver disease. 10/02/2022 12:2 4 PM EST 10/02/2022 12:24 PM EST us [facility] External Provider LAB BLO OD ORDERABLES Final Result [facility] [address] [place] [address] [phone] * BI Mammogram Screening Tomosynthesis Bilateral (08/28/2022 2:50 PM EST) Anatomical Region Laterality Modality Breast Bilateral Mammography 08/28/2022 2:50 PM EST Narrative 08/30/2022 9:45 AM EST [facility] [address] [place] [address] [place] [address] Mammography Report Signed Patient: Rosalba Palacios MR#: [id number] : 1960 Acct:[id number] Age/Sex: 62 / F ADM Date: 08/28/22 Loc: JU[facility] Attending Dr: Marianna Chow NP Ordering Physician: MARIANNA CHOW NP Results: 2Benign [place] Date of Service: 08/28/22 Follow Up: 1 Year From Orig inal Mammogram Procedure(s): MM tomosynthesis screening BI Accession Number(s): [id number] cc: MARIANNA CHOW NP EXAMINATION: MM SCREENING [...] in OV> 08/30/22 0942 DD/ 1450 TD/TT: Design Maintenance Engineer: CADET Procedure Note Donotuseinterpreter, Image - 08/30/2022 [facility] [address] [place], [place] [address] Mammography Report Signed Patient: Rosalba Palacios#: M [id number] : 9Acct:[id number] Age/Sex: 62 / FADM Date: 08/28/22 Loc: HO.MAMMO Attending Dr: Marianna Chow NP Ordering Physician: MARIANNA CHOW NPResults: 2Benign [place] Date of Service: 08/28/22Follow Up: 1 Year From Orig inal Mammogram Procedure(s): MM tomosynthesis screening BI Accession Number(s): [id number] cc: MARIANNA CHOW NP EXAMINATION: MM SCREENING [...] in OV> 08/30/22 0942 DD/ 1450 TD/TT: Design Maintenance Engineer: CADET [facility] External Provider IMG BI PROCEDURES Final Result * THINPREP PAP (01/13/2021 10:02 AM EDT) Clinical Information: None given [facility] COMMENT SEE COMMENT [facility] Comment: EXPLANATORY NOTE: The Pap is a screening test for cervical cancer. It is not a diagnostic test and is subject to false negative and false positive results. It is most reliable when a satisfactory sample, regularly obtained, is submitted with relevant clinical findings and history, and when the Pap result is evaluated along with historic and current clinical information. Salon Sales Consultant : SEE COMMENT [facility] Comment: GSG, CT(ASCP) CT screening location: [place] [address] Interpretation/R esult: Negative for intraepithelial lesion or malignancy. [facility] LMP: NONE [facility]IV[facility] Prev. BX: NONE [facility]IVEN [facility] Prev. PAP: NONE GIVEN [facility] SOURCE: None given [facility] Statement Of Adequacy: SEE COMMENT [facility] Comment: Satisfactory for evaluation. Endocervical/transformation zone component absent. 01/13/2021 10:0 2 AM EDT [employer] [facility] PATHOLOGY ORDERABLES Final Result Performing Organization Address [facility] Phone Number [facility] [place] [address], * HPV mRNA E6/E7 (01/13/2021 10:02 AM EDT) [facility] HPV nRNA E6/E7 Not Detected Not Detected [facility] Comment: Methodology: Product Scientist-Mediated Amplification This assay detects E6/E7 viral messenger RNA (mRNA) from 14 high-risk HPV types (16,18,31,33,35,39,45,51,52,56,58,59,66,68). The analytical performance characteristics of this assay have been determined by [employer]. The modifications have not been cleared or approved by the FDA. This assay has been validated pursuant to the CLIA regulations and is used for clinical purposes. For additional information, please refer to http://education.[employer].Prodig[employer] Game/faq/WGD626d6 (This link if provided for information/ educational purposes only.) 01/13/2021 10:0 2 AM EDT [employer] [facility] BLOOD ORDERABLES Final Res ult Performing Organization Address [facility] de Phone Number [facility] [place] [address], [place] * Hm Colonoscopy (04/19/2016) Pathologist [facility] Colonoscopy Normal Normal us Historical Provider HEALTH MAINTENANCE Final Result from Last 3 Months or Most Recently Relevant to Health Maintenance Insurance MEDICARE [facility] Care Teams Electric Arc Furnace Operator Relationship Specialty Start Date End Date Marianna Chow ANP [address] [place] [address] PCP - General Family Medicine 04/14/22
--- OUTSIDE RECORDS SUMMARY | 2025-04-30 09:27 | XMS_ITS | Encounter Summary ---
Author Organization [employer] Address 75 [facility] [place] 7t [place] [address] Care Team Providers Care Tire Maintenance Technician Name Role Phone Caren Murphy Primary Care Provider [phone] Encounter Details Date Type Department Care Team ([facility] st Contact Info) Description 12/24/2023 Orders Only [facility]INE [address] [place] [address] Rhoda Muhammad RN Uncomplicated opioid dependence (CMS/HCC) [...] t he electric, gas, oil or water [employer] threatened to shut off services in your [...] 3:15 PM EDT Office Visit [facility] [address] [place] [address] [phone] Caern Murphy ANP 230 [place] [address] 07/06/2025 9:15 AM EST Office Visit [facility] [address] [place] [address] Jerod Pruett MD 230 [place] [address] Scheduled Orders Name Type Priority Associated Diagnoses [...] Load <15 NOT DETECTED NOT DETECTED IU/mL [facility] HCV Log PCR <1.18 NOT DETECTED NOT DETECTED Log IU/mL [facility] Comment:This test was perfor med using Real-Time Polymerase ChainReaction.Reportable Range: 15 IU/mL to 100,000,000 IU/mL(1.18 Log IU/mL to 8.00 Log IU/mL).The analytical performance characteristics of thisassay have been determined by [employer].The modifications have not been cleared or approved bythe FDA. This assay has been validated pursuant to theCLIA regulations and is used for clinical purposes.For more information on this test, go to:http://education.[employer]/faq/NVA41s6(This link is being provided for informational/educational purposes only.)THIS TEST WAS PERFORMED AT:[facility] [place] [phone] MARTINES MD 12/24/2023 11:2 6 AM EDT 12/25/2023 8:31 AM EDT us Jerod Pruett MD LAB BLOOD ORDERABLES Final Res ult [facility] [address] [place], [place] [phone] * HIV-1/2 Antigen and Antibodies, Fourth Generation, with Reflexes (12/24/2023 11:26 AM EDT) HIV AB/AG Nonreactive Nonreactive [facility] Comment:HIV-1 p24 Ag and/or HIV-1/HIV-2 Ab not detected.A test result that is nonreactive does not exclude thepossibility of exposure to or infection with HIV-1 and/orHIV-2. Nonreactive results in this assay for individualswith prior exposure to HIV-1 and/or HIV-2 may be due toantigen and antibody levels that are below the limit ofdetection of this assay.The [employer] HIV Ag/Ab Combo assay result andsupplemental assay results should be interpreted inconjunction with the patient's clinical presentation,history and other laboratory results. If the results areinconsistent with clinical evidence, additional testing issuggested to confirm the result. 12/24/2023 11:2 6 AM EDT 12/24/2023 1:16 PM EDT Jerod Pruett MD LAB BLOOD ORDERABLES Final Res ult Performing Organization Address [facility] de Phone Number [facility] [address] [place] [phone] * (ABNORMAL) Hepatitis C Antibody with Reflex to HCV, RNA, Quantitative, Real- Time PCR (12/24/2023 11:26 AM EDT) Hepatitis C Antibody Reactive( A) Nonreactive [facility] Comment:Presumptive evidence of antibodies to HCV. 12/24/2023 11:2 6 AM EDT 12/24/2023 1:16 PM EDT Jerod Pruett MD LAB BLOOD ORDERABLES Final Res ult Performing Organization Address [facility] de Phone Number [facility] [address] [place] [phone] documented in this encounter Visit Diagnoses Diagnosis Uncomplicated opioid dependence (CMS/HCC) documented in this encounter Additional Health Concerns Assessment Noted Time PHQ-9 Depression Total Score: 16 03/15/2 024 1:07 PM EDT documented as of this encounter Care Teams Tire Maintenance Technician Relationship Specialty Start Date End Date Caren Murphy ANP [address] [place] [address] PCP - General Family Medicine 04/14/22 documented as of this encounter
--- OUTSIDE RECORDS SUMMARY | 2025-04-30 09:27 | XMS_ITS | Encounter Summary ---
Author Organization [employer] Address [address] [facility] [address] 7t [place] [address] Care Team Providers Care Manager Molecular Name Role Phone Caren Murphy Primary Care Provider [phone] Reason for Visit * Reason Comments Med Refill Encounter Details Date Type Department Care Team ([facility] st Contact Info) Description 10/14/2023 Refill [facility] MEDICINE 230 [place] [address] Jerod Pruett MD 230 [place] [address] Uncomplicated opioid dependence (CMS/HCC) Social History Tobacco [...] t he electric, gas, oil or water [employer] threatened to shut off services in your [...] Description 06/02/2025 3:15 PM EDT Office Visit [facility]INE [address] [place] [address] Caren Murphy ANP [address] [place] [address] 07/06/2025 9:15 AM EST Office Visit [address] [address] Jerod Pruett MD [address] [place] [address] documented as of this encounter Visit Diagnoses Diagnosis Uncomplicated opioid dependence (CMS/HCC) documented in this encounter Care Teams Manager Molecular Relationship Specialty Start Date End Date Caren Murphy ANP [address] [place] [address] PCP - General Family Medicine 04/14/22 documented as of this encounter
--- OUTSIDE RECORDS SUMMARY | 2025-04-30 09:27 | XMS_ITS | Encounter Summary ---
Author Organization [employer] Address [address] [facility] [address]t [place] [address] Care Team Providers Care Presser Machine Name Role Phone Caren Murphy Primary Care Provider [phone] Reason for Visit * Reason Comments Med Refill Encounter Details Date Type Department Care Team ([facility] st Contact Info) Description 06/02/2024 Refill [facility] MEDICINE 230 [place] [address] Jerod Pruett MD 230 [place] [address] Uncomplicated opioid dependence (CMS/HCC) Social History Tobacco [...] Description 06/02/2025 3:15 PM EDT Office Visit [facility] MEDICINE [address] [place] [address] Caren Murphy ANP [address] [place] [address] 07/06/2025 9:15 AM EST Office Visit [address] [address] Jerod Pruett MD [address] [place] [address] documented as of this encounter Visit Diagnoses Diagnosis Uncomplicated opioid dependence (CMS/HCC) documented in this encounter Additional Health Concerns Assessment Noted Time PHQ-9 Depression Total Score: 16 024 1:07 PM EDT documented as of this encounter Care Teams Presser Machine Relationship Specialty Start Date End Date Caren Murphy ANP [address] [place] [address] PCP - General Family Medicine 04/14/22 documented as of this encounter
--- OUTSIDE RECORDS SUMMARY | 2025-04-30 09:27 | XMS_ITS | Encounter Summary ---
Author Organization [employer] Address [address] [facility] [address] 7t [place] [address] Care Team Providers Care Eyedotter Name Role Phone Caren Murphy Primary Care Provider [phone] Reason for Visit * Reason Comments Med Refill Encounter Details Date Type Department Care Team ([facility] st Contact Info) Description 04/07/2024 Refill [facility] MED[facility]INE 230 [place] [address] Valencia Barnes MD 230 [place] [address] Uncomplicated opioid dependence (CMS/HCC) Social History Tobacco [...] Description 06/02/2025 3:15 PM EDT Office Visit [facility] MEDICINE [address] [place] [phone] Caren Murphy ANP [address] [place] [address] 07/06/2025 9:15 AM EST Office Visit [address] [address] Jerod Pruett MD [address] [place] [address] documented as of this encounter Visit Diagnoses Diagnosis Uncomplicated opioid dependence (CMS/HCC) documented in this encounter Additional Health Concerns Assessment Noted Time PHQ-9 Depression Total Score: 16 024 1:07 PM EDT documented as of this encounter Care Teams Eyedotter Relationship Specialty Start Date End Date Caren Murphy ANP [address] [place] [phone] PCP - General Family Medicine 04/14/22 documented as of this encounter
--- OUTSIDE RECORDS SUMMARY | 2025-04-30 09:27 | XMS_ITS | Encounter Summary ---
Author Organization [employer] Address 75 [facility] 7t [place] [address] Care Team Providers Care Car Chaser Name Role Phone Caren Murphy Primary Care Provider [phone] Reason for Visit * Reason Comments Med Refill Encounter Details Date Type Department Care Team (Late Contact Info) Description 11/17/2022 Refill [facility] MEDICINE [address] [place] [address] Jerod Pruett MD [address] [place] [address] [phone] Uncomplicated opioid dependence (CMS/HCC) Social History Tobacco [...] Department Care Team (Late Contact Info) Description 06/02/2025 3:15 PM EDT Office Visit [facility] MEDICINE [address] [place] [address] Caren Murphy ANP 230 [place] [address] 07/06/2025 9:15 AM EST Office Visit [facility] MED[facility]INE 230 [place] [address] Jerod Pruett MD 230 [place], [place] [phone] documented as of this encounter Visit Diagnoses Diagnosis Uncomplicated opioid dependence (CMS/HCC) documented in this encounter Care Teams Car Chaser Relationship Specialty Start Date End Date Caren Murphy ANP [address] [place] [phone] PCP - General Family Medicine 04/14/22 documented as of this encounter
--- OUTSIDE RECORDS SUMMARY | 2025-04-30 09:27 | XMS_ITS | Encounter Summary ---
Author Organization [employer] Address [address] [facility] [address] 7t [place] [address] Care Team Providers Care Mathematical Technician Name Role Phone Caren Murphy Primary Care Provider [phone] Reason for Visit * Reason Comments Med Refill Encounter Details Date Type Department Care Team ([facility] st Contact Info) Description 07/02/2023 Refill [facility] MEDICINE 230 [place] [address] Jerod Pruett MD 230 [place] [address] Uncomplicated opioid dependence (CMS/HCC) Social History Tobacco [...] t he electric, gas, oil or water [employer] threatened to shut off services in your [...] Description 06/02/2025 3:15 PM EDT Office Visit [facility] MEDICINE [address] [place] [address] Caren Murphy ANP [address] [place] [address] 07/06/2025 9:15 AM EST Office Visit [address] [address] Jerod Pruett MD [address] [place] [address] documented as of this encounter Visit Diagnoses Diagnosis Uncomplicated opioid dependence (CMS/HCC) documented in this encounter Care Teams Mathematical Technician Relationship Specialty Start Date End Date Caren Murphy ANP [address] [place] [address] PCP - General Family Medicine 04/14/22 documented as of this encounter
--- OUTSIDE RECORDS SUMMARY | 2025-04-30 09:27 | XMS_ITS | Encounter Summary ---
Author Organization [employer] Address [address] [facility] [address] 7t [place] [address] Care Team Providers Care Assistant Librarian Name Role Phone Caren Murphy Primary Care Provider [phone] Encounter Details Date Type Department Care Team (Late st Contact Info) Description 12/23/2023 Orders Only [facility] MEDICINE 230 [place] [address] Rhoda Muhammad RN Social History Tobacco Use [...] Description 06/02/2025 3:15 PM EDT Office Visit [facility]INE [address] [place] [address] Caren Murphy ANP [address] [place] [address] 07/06/2025 9:15 AM EST Office Visit [facility] [address] [place] [address] Jerod Pruett MD [address] [place] [address] documented as of this encounter Visit Diagnoses Not on filedocumented in this encounter Additional Health Concerns Assessment Noted Time PHQ-9 Depression Total Score: 16 024 1:07 PM EDT documented as of this encounter Care Teams Assistant Librarian Relationship Specialty Start Date End Date Caren Murphy ANP [address] [place] [address] PCP - General Family Medicine 04/14/22 documented as of this encounter
== END 2025-04-30 09:36 | disposition home or self-care (01) ==
LOC: HO.HCS 08:47
PROVIDERS: PCP Nurse Practitioner; Visit Provider Nurse Practitioner Family
DX: R07.89 Other chest pain (principal); I44.7 Left bundle-branch block, unspecified; I10 Essential (primary) hypertension; R06.00 Dyspnea, unspecified; E66.01 Morbid (severe) obesity due to excess calories; R00.2 Palpitations
CPT/HCPCS: 93010; 99214; G2211

== ENCOUNTER → 2025-04-30 08:47 | Outpatient (BNVA) | payer MEDICARE, MEDICAID, SELFPAY | PROVIDERS: PCP Nurse Practitioner; Visit Provider Nurse Practitioner Family | DX: I10 Essential (primary) hypertension (principal); I44.7 Left bundle-branch block, unspecified; R07.89 Other chest pain; R06.00 Dyspnea, unspecified; R00.2 Palpitations; E66.01 Morbid (severe) obesity due to excess calories | CPT/HCPCS: 93005; 99212 ==

== ENCOUNTER → 2025-05-20 09:03 | Outpatient (REF) | payer MEDICARE, MEDICAID, SELFPAY ==
--- NOTE | 2025-05-20 09:07 | CA_ITS ---
Transthoracic Echocardiogram Patient (Last, First, Middle): Rosalba Palacios, Gender: Female Date of : 1960 Age: 65 Procedure Date: 05/20/2025 Procedure Type: Transthoracic Echocardiogram Location: OP Height: 154.94 cm Weight: 94.8 kg BSA: 1.92 m2 Heart Rate: bpm BP: 144 / 90 mmHg Medical Practice Assistant: SEVERO Referring MD: Clarisa Rae POINT OF SALE ASSOCIATEAllison Symptoms: I44.7 - Left bundle-branch block, unspecified Study Quality: Fair ECG Rhythm: Sinus Conclusions: - The left ventricular systolic function is normal. The calculated ejection fraction is 59% by biplane method. - No obvious valvular pathology seen on this study. - There is mild dilatation of the ascending aorta measuring 3.90 cm. Findings Left Ventricle Normal left ventricular cavity size. There is normal left ventricular wall thickness. The left ventricular systolic function is normal. The calculated ejection fraction is 59% by biplane method. There is no evidence of regional wall motion abnormalities. Diastolic function is normal for age. Right Ventricle Mildly increased right ventricular cavity size. There is normal right ventricular systolic function. Atria Both atria are normal in size. Aortic Valve The aortic valve was not well visualized. There is no aortic valve stenosis. There is no aortic valve regurgitation. Mitral Valve The mitral valve appears normal. There is no mitral valve regurgitation. There is no mitral valve stenosis. Pulmonic Valve The pulmonic valve is likely normal. Tricuspid Valve There is trace tricuspid valve regurgitation. There is no evidence of pulmonary hypertension. Great Vessels The aortic arch is normal in size. There is mild dilatation of the ascending aorta measuring 3.90 cm. Venous The inferior vena cava is normal in size and collapses greater than 50% with inspiration. Pericardium/Pleural There is no evidence of pericardial effusion. Prior Study Comparison No significant change compared to prior study dated: 09/19/2023. Recommendations, Care & Conclusions No obvious valvular pathology seen on this study. Measurements 2D Linear Measurements IVSd: 0.97 0.6-0.9/0.6-1.0 cm LVIDd: 5.19 3.9-5.3/4.2-5.9 cm LVIDd Index: 2.70 2.4-3.2/2.2-3.1 cm/m2 LVIDs: 3.70 2.0-3.6 cm LVPWd: 0.96 0.7-1.1 cm LA Diam: 3.70 2.7-3.8/3.0-4.0 cm LAIDs Index: 1.93 1.5-2.3 cm/m2 LV Mass: 229.52 67-162/88-224 g LV Mass Index: 119.54 43-95/49-115 g/m2 LVOT Diam: 2.00 3.0+(-)1.3 cm 2D Systolic Function EF 4C: 58.20 >55% EF 2C: 57.70 >55% EF BiP: 59.30 >55% Mitral Valve MV Pk E: 0.64 MV PK A: 1.08 MV Decel Time: 114.00 E/A: 0.60 E'Lateral: 8.70 E'Medial: 5.77 E/E' Med: 11.10 E/E' Lat: 7.30 PHT: 33.00 MVA PHT: 6.67 Decel M[place]i: 5.60 Aortic Valve AoV Pk Nithin: 1.86 AoV Mn Nithin: 1.36 AoV VTI: 0.39 AoV Pk Grad: 14.00 Aov Mn Grad: 8.00 DAVID Cont.VTI: 2.07 LVOT LVOT Pk Nithin: 1.22 LVOT Mn Nithin: 0.90 LVOT VTI: 0.26 LVOT Pk Grad: 6.00 LVOT Mn Grad: 4.00 LVOT Diam: 2.00 LVOT Area: 3.14 Diastolic Function MV Pk E: 0.64 MV Pk A: 1.08 E/A: 0.60 E'Medial: 5.77 E/E' Med: 11.10 E' Laterial: 8.70 E/E' Lat: 7.30 Right Ventricle TAPSE (mm): 35.00 TVS' Nithin: 17.00 Tricuspid Valve RA Press: 3.00 Great Vessels Aorta Sinus of Valsalva: 3.46 2.0-3.[address] Ridge: 2.75 1.7-3.4 cm Ao Asc: 3.90 2.1-3.4 cm Ao Arch: 2.80 Updated in Other Vendor System with Status of Final Jarett Dia MD electronically signed on 05/22/2025 1:18:27 PM with status of Final
--- NOTE | 2025-05-20 09:07 | HM_ITS ---
Conclusion: 1. Patient was monitored for total period of 3 days 2. Baseline was normal sinus rhythm with average heart rate of 75 beats per minute 3. Rare PACs and PVCs noted 4. No significant pauses noted 5. Patient marked the counter 1 time with no reported symptoms correlating with sinus rhythm MTDD
--- OUTSIDE RECORDS SUMMARY | 2025-05-20 09:50 | XMS_ITS | Encounter Summary ---
Author Organization [employer] Address [address] [facility] [address] 7t [place] [address] Care Team Providers Care Laboratory Specialist Name Role Phone Caren Murphy Primary Care Provider [phone] Reason for Visit * Reason Comments Med Refill Encounter Details Date Type Department Care Team ([facility] st Contact Info) Description 07/02/2023 Refill [facility] MEDICINE 230 [place] [address] Jerod Pruett MD 230 [place] [address] Uncomplicated opioid dependence (CMS/HCC) Social History Tobacco Use Types Packs/Day Years Used Date Smoking Tobacco: Some Days Cigarettes Passive Smoke Exposure: Current Smokeless Tobacco: Never Alcohol Use Standard Drinks/Week Comments Yes 0 (1 standard drink = 0.6 oz pur e alcohol) Socially Housing Stability Answer Date Recorded What is your housing situation today? I have miguleito burgos 06/03/[address] you [...] t he electric, gas, oil or water [employer] threatened to shut off services in your [...] Description 06/02/2025 3:15 PM EDT Office Visit [facility] MEDICINE [address] [place] [address] Caren Murphy ANP [address] [place] [address] 07/06/2025 9:15 AM EST Office Visit [address] [address] Jerod Pruett MD [address] [place] [address] documented as of this encounter Visit Diagnoses Diagnosis Uncomplicated opioid dependence (CMS/HCC) (HCC) documented in this encounter Care Teams Laboratory Specialist Relationship Specialty Start Date End Date Caren Murphy ANP [address] [place] [address] PCP - General Family Medicine 04/14/22 documented as of this encounter
--- OUTSIDE RECORDS SUMMARY | 2025-05-20 09:50 | XMS_ITS | Encounter Summary ---
Author Organization [employer] Address [address] [facility] [address] 7t [place] [address] Care Team Providers Care Battery Vent Plug Inserter Name Role Phone Caren Murphy Primary Care Provider [phone] Reason for Visit * Reason Comments Med Refill Encounter Details Date Type Department Care Team ([facility] st Contact Info) Description 02/11/2024 Refill [facility] MEDICINE 230 [place] [address] Jerod Pruett MD 230 [place] [address] Uncomplicated opioid dependence (CMS/HCC) Social History Tobacco [...] Description 06/02/2025 3:15 PM EDT Office Visit [facility] MEDICINE [address] [place] [address] Caren Murphy ANP [address] [place] [address] 07/06/2025 9:15 AM EST Office Visit [address] [address] Jerod Pruett MD [address] [place] [address] documented as of this encounter Visit Diagnoses Diagnosis Uncomplicated opioid dependence (CMS/HCC) (HCC) documented in this encounter Additional Health Concerns Assessment Noted Time PHQ-9 Depression Total Score: 16 024 1:07 PM EDT documented as of this encounter Care Teams Battery Vent Plug Inserter Relationship Specialty Start Date End Date Caren Murphy ANP [address] [place] [address] PCP - General Family Medicine 04/14/22 documented as of this encounter
--- OUTSIDE RECORDS SUMMARY | 2025-05-20 09:50 | XMS_ITS | Encounter Summary ---
Author Organization [employer] Address [address] [facility] [address] 7t [place] [address] Care Team Providers Care Bonderizer Operator Name Role Phone Caren Murphy Primary Care Provider [phone] Reason for Visit * Reason Comments Med Refill Encounter Details Date Type Department Care Team ([facility] st Contact Info) Description 10/14/2023 Refill [facility] MEDICINE 230 [place] [address] Jerod Pruett MD 230 [place] [address] Uncomplicated opioid dependence (CMS/HCC) Social History Tobacco [...] t he electric, gas, oil or water [employer] threatened to shut off services in your [...] Description 06/02/2025 3:15 PM EDT Office Visit [facility] MEDICINE [address] [place] [address] Caren Murphy ANP [address] [place] [address] 07/06/2025 9:15 AM EST Office Visit [address] [address] Jerod Pruett MD [address] [place] [address] documented as of this encounter Visit Diagnoses Diagnosis Uncomplicated opioid dependence (CMS/HCC) (HCC) documented in this encounter Care Teams Bonderizer Operator Relationship Specialty Start Date End Date Caren Murphy ANP [address] [place] [address] PCP - General Family Medicine 04/14/22 documented as of this encounter
--- OUTSIDE RECORDS SUMMARY | 2025-05-20 09:50 | XMS_ITS | Encounter Summary ---
Author Organization [employer] Address 75 [facility] 7t [place] [address] Care Team Providers Care Landscape And Yardwork Laborer Name Role Phone Caren Murphy Primary Care Provider [phone] Encounter Details Date Type Department Care Team ([facility] Contact Info) Description 02/09/2025 Orders Only [facility] 230 [place] [address] Provider, MD Vineet Social History Tobacco Use [...] Description 06/02/2025 3:15 PM EDT Office Visit [address] [address] Caren Murphy ANP [address] [place] [address] 07/06/2025 9:15 AM EST Office Visit [address] [address] Jerod Pruett MD [address] [place] [address] documented as of this encounter Procedures Procedure [...] documented as of this encounter Care Teams Landscape And Yardwork Laborer Relationship Specialty Start Date End Date Caren Murphy ANP [address] [place] [address] [place] [address] PCP - General Family Medicine 04/14/22 documented as of this encounter
--- OUTSIDE RECORDS SUMMARY | 2025-05-20 09:50 | XMS_ITS | Encounter Summary ---
Author Organization [employer] Address 75 [facility] 7t [place] [address] Care Team Providers Care Loom Changeover Operator Name Role Phone Caren Murphy Primary Care Provider [phone] Reason for Visit * Reason Comments Med Refill Encounter Details Date Type Department Care Team (Late Contact Info) Description 11/17/2022 Refill [facility] MEDICINE [address] [place] [address] Jerod Pruett MD [address] [place] [address] [phone] Uncomplicated opioid dependence (CMS/HCC) Social History Tobacco [...] Description 06/02/2025 3:15 PM EDT Office Visit [facility] MEDICINE [address] [place] [address] Caren Murphy ANP 230 [place] [address] 07/06/2025 9:15 AM EST Office Visit [facility] MEDICINE 230 [place] [address] Jerod Pruett MD 230 [place], [place] [phone] documented as of this encounter Visit Diagnoses Diagnosis Uncomplicated opioid dependence (CMS/HCC) (HCC) documented in this encounter Care Teams Loom Changeover Operator Relationship Specialty Start Date End Date Caren Murphy ANP [address] [place] [address] PCP - General Family Medicine 04/14/22 documented as of this encounter
--- OUTSIDE RECORDS SUMMARY | 2025-05-20 09:51 | XMS_ITS | Encounter Summary ---
Author Organization [employer] Address [address] [place] [address] Care Team Providers Care Observer Gravity Prospecting Name Role Phone Caren Murphy Primary Care Provider [phone] Reason for Visit * Reason Comments Med Refill Encounter Details Date Type Department Care Team ([facility] st Contact Info) Description 06/02/2024 Refill [facility]INE [address] [place] [address] Jerod Pruett MD [address] [place] [address] Uncomplicated opioid dependence (CMS/HCC) Social History Tobacco [...] 3:15 PM EDT Office Visit [facility] MEDICINE [address] [place] [address] Caren Murphy ANP [address] [place] [address] 07/06/2025 9:15 AM EST Office Visit [address] [address] Jerod Pruett MD [address] [place] [address] documented as of this encounter Visit Diagnoses Diagnosis Uncomplicated opioid dependence (CMS/HCC) (HCC) documented in this encounter Additional Health Concerns Assessment Noted Time PHQ-9 Depression Total Score: 16 024 1:07 PM EDT documented as of this encounter Care Teams Observer Gravity Prospecting Relationship Specialty Start Date End Date Caren Murphy ANP [address] [place] [phone] PCP - General Family Medicine 04/14/22 documented as of this encounter
--- OUTSIDE RECORDS SUMMARY | 2025-05-20 09:51 | XMS_ITS | Clinical Summary ---
Author Organization [facility] [address] [facility] Address [address] [place] [address] Phone Care Team Providers Care Forestry Workers Name Role Phone Caren Murphy NP Primary Care Provider [phone] Allergies No known active allergies Medications albuterol [...] receive adjuvant chemotherapy with her oncologist at [facility]. The patient's most recent surveillance chest CT [...] She was referred to medical onocology at [facility] and completed 8 cycles of adjuvant chemotherapy and denies any immunotherapy. 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 Lung cancer ([facility] V24, [facility] V28) 05/13/2023 02/12/2025 Overview (06/02/2024): Last Assessment & Plan: Ms. 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 Patient will be referred to medical oncology at [facility] for discussion of possible adjuvant chemotherapy or [...] results which should both take place at [facility]. While patient was in office [...] well-expanded. Also instructed to discontinue her Keflex. Surgical History Surgery Date Site/Laterality Comments CARDIAC CATHETERIZATION N/A PROCEDURE: HISTORICAL CARDIAC CATH SECTION N/A PROCEDURE: HISTORICAL DELIVERY COLONOSCOPY N/A PROCEDURE: HISTORICAL COLONOSCOPY BREAST BIOPSY Right PROCEDURE: IA BIOPSY BREAST OPEN INCISIONAL TUBAL LIGATION PROCEDURE: HISTORICAL TUBAL LIGATION OTHER SURGICAL HISTORY 05/07/2023 Right PROCEDURE: IA THORACOSCOPY W/LOBECTOMY SINGLE LOBE; COMMENT: RUL wedge THYROID BIOPSY 07/10/2024 at [facility] Medical History Medical History Date Comments [...] is a 63-year-old female previously in the [facility] lung cancer screening program who on May 07, 2023 had a da Missy robotic right upper lobectomy and mediastinal lymphadenectomy for stage [id number] or stage Ib adenocarcinoma. Patient will be referred to medical oncology at [facility] for discussion of possible adjuvant chemotherap Family [...] Care Team (Late st Contact Info) Description 05/27/2025 11:00 AM EDT Office Visit Thoracic Surgery - [place] [address] [phone] Alvina Armas PA [address] [address] 06/04/2025 9:15 AM EDT Appointment [facility] CT Scan [address] [place] [phone] Health Maintenance Due Date Last Done Comments Colorectal Cancer Screening: Colonoscopy 1960 Pneumococcal Vaccine: 50+ Years (2 of 2 - PCV) 09/30/2010 09/30/2009, 09/30/2009 Hepatitis B Vaccines (1 of 3 - Risk 3-dose series) 2019 RSV Immunization Adult Patients (1 - Risk 60-74 years 1-dose series) 2019 Hepatitis C Screening 09/17/2023 Medicare Annual Wellness Visit 09/17/2023 Osteoporosis Screening (Bone Density Screening) 09/17/2023 Social Influencers of Health Screening 09/17/2023 Falls Risk Assessment 2024 Hypertension/CHF/CAD Annual BMP Blood Test 07/06/2024 Depression Screening 08/19/2024 Breast Cancer Screening 08/28/2024 08/28/2022 COVID-19 Vaccine (8 - Moderna risk season) 2025 05/21/2024, 06/07/2023, 05/21/2022, Additional history exists Influenza Vaccine (#1) 2025 4, 06/07/2023, 05/21/2022, Additional history exists Cholesterol Screening [...] Insurance MEDICARE MEDICAID - [place] Care Teams Forestry Workers Relationship Specialty Start Date End Date Caren Murphy NP [address] [place] [phone] PCP - General 02/15/25
--- OUTSIDE RECORDS SUMMARY | 2025-05-20 09:51 | XMS_ITS | Clinical Summary ---
Author Organization [employer] Address [address] [facility] 7t [place] [address] Care Team Providers Care Licensed Therapist Name Role Phone Jeffrey Marianna AKHTAR Primary Care Provider [phone] Allergies Active Allergy Reactions Criticality Noted Date Comments Risperidone 11/14/2017 Other reaction(s): Hives / Skin Rash Medications furosemide (Lasix) 40 MG tablet Take 1 tablet by mouth 1 (one) time each day. May take 1 additional tablet daily as needed for edema 11/08/19 22 Active prazosin (Minipress) 2 MG capsule Take 2 capsules by mouth at bedtime. 09/15/19 22 Active divalproex (Depakote ER) 500 MG 24 hr tablet Take 2 tablets by mouth at bedtime. 09/15/19 22 Active nystatin (Mycostatin) 722094 UNIT/GM powder Apply topically every 12 (twelve) hours. To the affected area(s) 03/22/20 21 Active Blood Pressure Monitoring (Blood Pressure Cuff) mis Fot htn. Please teach patient how to use and track BP Active Naloxone HCl (NARCAN NA) Administer into affected nostril(s). Maurepas 0.1 mL by intranasal route in 1 nostril may repeat dose every 2-3 minutes as needed alternating nostrils with each dose. Active Respiratory Therapy Supplies (Nebulizer/Tubing/ Mouthpiece) kitIndications:Ast hma-chronic obstructive pulmonary disease overlap syndrome (CMS/HCC) ([facility]) 1 each if needed each day (asthma). 1 kit 3 08/07/20 22 Active Respiratory Therapy Supplies (Nebulizer Mask Adult) miscIndications:As thma-chronic obstructive pulmonary disease overlap syndrome (CMS/HCC) (HCC) 1 Piece if needed (asthma). 1 each 11/09/19 23 Active acetaminophen (Tylenol) 325 MG tablet TAKE 3 TABLETS BY MOUTH EVERY 6 HOURS 05/09/20 23 Active buPROPion XL (Wellbutrin XL) 300 MG 24 hr tablet TAKE 1 TABLET BY MOUTH EVERY MORNING 05/01/20 23 Active hydrOXYzine pamoate (Vistaril) 25 MG capsule TAKE 1 CAPSULE BY MOUTH TWICE DAILY NEEDED FOR ANXIETY 04/08/20 23 Active melatonin tablet TAKE 1 TABLET BY MOUTH AT BEDTIME NEEDED FOR SLEEP 03/19/20 23 Active mupirocin (Bactroban) 2 % ointmentIndication s:Ulcer of right lower extremity, limited to breakdown of skin ([facility]) Use BID as needed for wound 22 g 01/31/20 24 Active metoprolol succinate XL (Toprol-XL) 25 MG 24 hr tablet Take 25 mg by mouth in the morning. 01/02/20 24 Active folic acid (Folvite) 1 MG tablet Take 1,000 mcg by mouth Once per day. 01/02/20 24 Active potassium chloride CR (Klor-Con M20) 20 MEQ ER tablet TAKE 1 TABLET BY MOUTH ONCE DAILY FOR 5 DAYS. DO NOT BREAK, CRUSH, DISSOLVE OR CHEW 09/29/19 25 Active pantoprazole (ProtoNix) 40 MG EC tablet TAKE 1 TABLET BY MOUTH EVERY MORNING 90 tablet 3 11/18/19 25 Active montelukast (Singulair) 10 MG tablet TAKE 1 TABLET BY MOUTH EVERY EVENING 90 tablet 1 12/11/19 25 Active Ventolin HFA 108 (90 Base) MCG/ACT inhalerIndications :Asthma-chronic obstructive pulmonary disease overlap syndrome (CMS/HCC) ([facility]) INHALE 2 PUFFS BY MOUTH EVERY 6 HOURS NEEDED FOR WHEEZING 18 g 1 12/15/19 25 Active D3 Super Strength 50 MCG (2000 UT) capsule TAKE 1 CAPSULE BY MOUTH EVERY MORNING 90 capsule 3 12/15/19 25 Active Aspirin Low Dose 81 MG EC tabletIndications: Hyperlipidemia, unspecified hyperlipidemia type,Cardiomyopath y, unspecified type (CMS/HCC) ([facility]) TAKE 1 TABLET BY MOUTH EVERY MORNING 90 tablet 1 02/09/20 25 Active docusate sodium (Colace) 100 MG capsuleIndications :Constipation, unspecified constipation type TAKE 1 CAPSULE BY MOUTH AT BEDTIME 90 capsule 1 02/09/20 25 Active lisinopril 40 MG tabletIndications: Primary hypertension TAKE 1 TABLET BY MOUTH EVERY MORNING 90 tablet 1 02/09/20 25 Active loratadine (Claritin) 10 MG tabletIndications: Environmental and seasonal allergies TAKE 1 TABLET BY MOUTH EVERY MORNING 90 tablet 1 02/09/20 25 Active simvastatin (Zocor) 80 MG tabletIndications: Hyperlipidemia, unspecified hyperlipidemia type TAKE 1 TABLET BY MOUTH AT BEDTIME 90 tablet 1 02/09/20 25 Active Anoro Ellipta 62.5-25 MCG/ACT aerosol powderIndications: Asthma-chronic obstructive pulmonary disease overlap syndrome (CMS/HCC) (HCC) INHALE 1 PUFF BY MOUTH EVERY DAY AT THE SAME TIME RINSE MOUTH AFTER USING 60 each 2 04/02/20 25 Active Buprenorphine HCl-Naloxone HCl (Suboxone) 8-2 MG SL filmIndications:Op ioid use disorder in remission Place 1 Film under the tongue Once per day. 28 Film 2 04/05/20 25 025 Active buprenorphine-nalo xone (Suboxone) 2-0.5 MG per sublingual filmIndications:Op ioid use disorder in remission Place 2 Film under the tongue Once per day. 56 Film 2 04/05/20 25 025 Active OLANZapine (ZyPREXA) 5 MG tabletIndications: Depressed bipolar I disorder (CMS/HCC) ([facility]) Take 1 tablet (5 mg) by mouth at bedtime. 30 tablet 1 04/05/20 25 Active Active Problems Problem Noted Date Diagnosed [...] and mediastinal lymphadenectomy and s/p chemotherapy From [facility] [facility] notes 05/07/23, 05/21/23 (visit at which [...] history of coronary artery disease or prior DC. She does have cardiac risk factors of morbid obesity, hypertension, smoking. Pharmacological nuclear stress test done on 03/28/2023 showing anterior rate and apical ischemia with fixed septal defect which could represent prior DC, these findings could also be seen in patients with left bundle branch block, EF 45%. She is on aspirin 81 mg daily, simvastatin 80 mg daily. [place] LDL goal less than 70. Heart failure 07/30/2022 Hypertensive disorder 07/30/2022 Peripheral vascular disease 07/30/2022 Normal colonoscopy 10/14/2020 Sampling of cervix for Papanicolaou smear comple gely 10/14/2020 Fibroadenoma of right breast 09/08/2020 Viral hepatitis C 09/08/2020 Biceps tendinitis 04/08/2017 Opioid dependence 02/16/2014 Depressed bipolar I disorder ([facility]/HCC) 3 Substance abuse ([facility]) 02/26/2013 Varicose veins of lower extremity 04/17/2012 Backache 02/14/2012 Asthma-chronic obstructive p ulmonary disease overlap syndrome ([facility]/HCC) 02/14/2012 Gastroesophageal reflux disease 02/14/2012 Hyperlipidemia 02/14/2012 Obesity 02/14/2012 Obstructive sleep apnea syndrome 02/14/2012 Tobacco dependence syndrome 02/14/2012 Encounters Date Type Department Care Team Description 04/13/2025 9:15 AM EDT Office Visit [facility] [place] [address] Jerod Pruett MD Opioid use disorder in remission (Primary Dx) 04/13/2025 Travel 04/05/2025 1:00 PM EDT Office Visit [facility] [address] [place], [place] [address]janell [place] [address] Marianna Chow ANP Tremor of both hands (Primary Dx); Depressed bipolar I disorder (CMS/HCC); Screening mammogram for breast cancer 04/05/2025 Travel 04/05/2025 [address] [place] [address] Rhoda Muhammad RN Opioid use disorder in remission 04/05/[address] [address] Rhoda Muhammad RN Opioid use disorder in remission 04/02/[address] [address] Marianna Chow ANP chart prep 04/02/[address] [address] Renzo, MD [place] Asthma-chronic obstructive pulmonary disease overlap syndrome (CMS/HCC) 03/30/2025 Orders Only [address] [address] Marianna Chow ANP 03/30/2025 Results Follow-Up [address] [address] Priyanka Fitzgerald NP TSH W/Reflex to FT4, Basic Metabolic Panel, Magnesium 03/29/2025 6:00 PM EDT Office Visit [facility] [place] [address] Priyanka Fitzgerald NP Tremor of both hands (Primary Dx); Cardiac murmur 03/29/2025 Travel from Last 3 Months Immunizations Immunization Administration [...] Description 06/02/2025 3:15 PM EDT Office Visit [facility] [address] [place] [address] Marianna Chow ANP [address] [place], [place] [phone] 07/06/2025 9:15 AM EST Office Visit [facility] [address] [place], [place] [phone] Jerod Pruett MD [address] [place] [address] Health Maintenance Due Date Last Done Comments [...] :18 AM EDT Tremor of both hands HEMOGLOBIN A1C Routine 11/24/2024 8:13 AM EDT [...] W/Reflex to FT4 (03/30/2025 8:18 AM EDT) [facility] TSH reflex Free T4 1.60 0.32 - 4.0 uIU/mL [facility] Blood Venous blood specimen / Unknown 03/30/2025 8:18 AM EDT 03/30/2025 11:18 AM EDT [facility] EQUIPMENT MAINTENANCE TECH LAB BLOOD ORDERABLES Final Resu lt Performing Organization Address [facility]/ZIP Co de Phone Number [facility] [address] [place] [phone] * Magnesium (03/30/2025 8:18 AM EDT) [facility] Magnesium 2.1 1.6 - 2.6 mg/dL [facility] Blood Venous blood specimen / Unknown 03/30/2025 8:18 AM EDT 03/30/2025 11:18 AM EDT [facility] EQUIPMENT MAINTENANCE TECH LAB BLOOD ORDERABLES Final Resu lt Performing Organization Address City/[facility]/ZIP Co de Phone Number [facility] [address] [place] [phone] * (ABNORMAL) Basic Metabolic Panel (03/30/2025 8:18 AM EDT) [facility] Sodium 145 135 - 145 mmol/L [facility] Potassium 4.2 3.3 - 5.1 mmol/L [facility] Chloride 107 96 - 108 mmol/L [facility] Carbon Dioxide 30(H) 22 - 29 mmol/L [facility] Anion Gap 12 12 - 20 [facility] Urea Nitrogen (BUN) 13 9 - 16 mg/dL [facility] Creatinine, Serum 0.65 0.5 - 1.4 mg/dL [facility] Estimated Glomerular Filt Rate >60 [facility] Comment:Chronic Kidney Disea se: Estimated GFR < 60 mL/min/1.26n0Inthwz Kidney Disease: Estimated GFR < 15 mL/min/1.73m2 Glucose 121(H) 60 - 115 mg/dL [facility] Calcium 9.6 8.4 - 10.2 mg/dL [facility] Blood Venous blood specimen / Unknown 03/30/2025 8:18 AM EDT 03/30/2025 11:18 AM EDT Priyanka Lia EQUIPMENT MAINTENANCE TECH LAB BLOOD ORDERABLES Final Resu lt Performing Organization Address [facility]/ZIP Co de Phone Number [facility] [address] [place] [phone] * Hemoglobin A1c (11/24/2024 8:13 AM EDT) Hemoglobin A1c 5.7 <6.0 % [facility] Comment:Hemoglobin A1C Refer ence Range Adults: 4.8 - 6.0 % Non diabetic: < 6.0 % Goal: < 7.0 %Additional Action Suggested: > 8.0 %Note: Hemoglobin A1c results are invalid for patients with abnormal amounts of HbF. Blood transfusions may impact the HbA1c concentration in the patient sample. Estimated Average Glucose 117 mg/dL [facility] Comment:eAG = Estimated ave rage glucose which is %A1C expressed asaverage glucose, using the formula of the W2R-RideestZzhubaj Glucose study (ADAG), Diabetes Care, Vol.31,#8,Mar. 2007 Blood Venous blood specimen / Unknown 11/24/2024 8:13 AM EDT 11/24/2024 11:07 AM EDT Marianna Chow ANP LAB BLOOD ORDERABLES Final Resul t Performing Organization Address [facility] Co de Phone Number [facility] [address] [place] [phone] * Lipid Panel, Standard (10/02/2022 12:24 PM EST) Triglycerides 99 mg/dL [facility] Comment:Desirable Triglyceri de: less than 150 mg/dLBorderline High Triglyceride 150-199 mg/dLHigh Triglyceride: 200-499 mg/dLVery High Triglyceride: greater than or equal to 5OO mg/dL Cholesterol 180 mg/dL [facility] Comment:Desirable Cholestero l: less than 200 mg/dLBorderline High Cholesterol: 200-239 mg/dLHigh Cholesterol: greater than 239 mg/dL LDL Cholesterol Calculated 106 mg/dl [facility] Comment:Desirable LDL: less than 100 mg/dLNear Optimal/Above Optimal LDL: 110- 129 mg/dLBorderline High LDL: 130-159 mg/dLHigh LDL: 160-189 mg/dLVery High LDL: greater than or equal to 190 mg/dL HDL Cholesterol 55 mg/dL [facility] Comment:Desirable HDL: great er than 40 mg/dL Note: This HDL assay may give artificially low results in patients with liver disease. 10/02/2022 12:2 4 PM EST 10/02/2022 12:24 PM EST [facility] External Provider LAB BLO OD ORDERABLES Final Result [facility] [address] [place] [phone] * BI Mammogram Screening Tomosynthesis Bilateral (08/28/2022 2:50 PM EST) Anatomical Region Laterality Modality Breast Bilateral Mammography 08/28/2022 2:50 PM EST Narrative 08/30/2022 9:45 AM EST [facility] [address] [place] [address] Mammography Report Signed Patient: Rosalba Palacios MR#: [id number] : 1960 Acct:[id number] Age/Sex: 62 / F ADM Date: 08/28/22 Loc: HO.MAMMO Attending Dr: Marianna Chow NP Ordering Physician: MARIANNA CHOW NP Results: 2Benign Fin dings Date of Service: 08/28/22 Follow Up: 1 Year From Orig ina Mammogram Procedure(s): MM tomosynthesis screening BI Accession Number(s): [id number] cc: MARIANNA CHOW NP EXAMINATION: MM SCREENING [...] in OV> 08/30/22 0942 DD/ 1450 TD/TT: Induction Coordination Power Engineer: CADET Procedure Note Donotuseinterpreter, Image - 08/30/2022 [place] [facility] [address] [place] [address] Mammography Report Signed Patient: Kavita Palacios#: [id number] : 9Acct:[id number] Age/Sex: 62 / FADM Date: 08/28/22 Loc: HO.MAMMO Attending Dr: Marianna Chow NP Ordering Physician: MARIANNA CHOW NPResults: 2Benign Osvaldo dings Date of Service: 08/28/22Follow Up: 1 Year From Orig inal Mammogram Procedure(s): MM tomosynthesis screening BI Accession Number(s): [id number] cc: MARIANNA CHOW NP EXAMINATION: MM SCREENING [...] in OV> 08/30/22 0942 DD/ 1450 TD/TT: Induction Coordination Power Engineer: CADET [facility] External Provider IMG BI PROCEDURES Final [...] along with historic and current clinical information. Sports Physiotherapist : SEE COMMENT [facility] Comment: GSG, CT(ASCP) CT screening location: [place] [address] Interpretation/R esult: Negative for intraepithelial lesion or malignancy. [facility] LMP: NONE GIVEN [facility] Prev. BX: NONE GIVEN [facility] Prev. PAP: NONE GIVEN [facility] SOURCE: None given [facility] Statement Of Adequacy: SEE COMMENT [facility] Comment: Satisfactory for evaluation. Endocervical/transformation zone component absent. 01/13/2021 10:0 2 AM EDT [facility] LAB PATHOLOGY ORDERABLES Final Result Performing Organization Address [facility] de Phone Number [facility] [address] [place] [address] * HPV mRNA E6/E7 (01/13/2021 10:02 AM EDT) HPV nRNA E6/E7 Not Detected Not Detected [facility] Comment: Methodology: Panel Instrument Repairer-Mediated Amplification This assay detects E6/E7 viral messenger RNA (mRNA) from 14 high-risk HPV types (16,18,31,33,35,39,45,51,52,56,58,59,66,68). The analytical performance characteristics of this assay have been determined by [employer]. The modifications have not been cleared or approved by the FDA. This assay has been validated pursuant to the CLIA regulations and is used for clinical purposes. For additional information, please refer to http://education.Loyalis.Blipify/faq/KSZ853o8 (This link if provided for information/ educational purposes only.) 01/13/2021 10:0 2 AM EDT [employer] LAB BLOOD ORDERABLES Final Res ult Performing Organization Address [facility] de Phone Number [facility] [address] [place] [phone] * Colonoscopy (04/19/2016) Colonoscopy Normal Normal us Historical Provider MD HEALTH MAINTENANCE Final Result from Last 3 Months or Most Recently Relevant to Health Maintenance Insurance MEDICARE Member Subscriber Plan / Payer (Ef fective 2024-Present) Name:Rosalba Palacios I Member ID:[id number] Relation to Subscriber:Self Name:Rosalba Palacios I Subscriber ID:[id number] Payer ID:STATE Group ID:Not on file Type:Medicare Address: [facility] [address] [address] [facility] Care Teams Licensed Therapist Relationship Specialty Start Date End Date Marianna Chow ANP [address] [place] [phone] PCP - General Family Medicine 04/14/22
--- OUTSIDE RECORDS SUMMARY | 2025-05-20 09:51 | XMS_ITS | Encounter Summary ---
Author Organization [employer] Address [address] [place] [address] Care Team Providers Care Outsole Paraffiner Name Role Phone Caren Murphy Primary Care Provider [phone] Encounter Details Date Type Department Care Team (Late st Contact Info) Description 12/23/2023 Orders Only [facility] [address] [place] [address] Rhoda Muhammad RN Social History Tobacco Use [...] Description 06/02/2025 3:15 PM EDT Office Visit [facility] [address] [place] [phone] Caren Murphy ANP [address] [place] [phone] 07/06/2025 9:15 AM EST Office Visit [facility] [address] [place] [phone] Jerod Pruett MD [address] [place] [phone] documented as of this encounter Visit Diagnoses Not on filedocumented in this encounter Additional Health Concerns Assessment Noted Time PHQ-9 Depression Total Score: 16 024 1:07 PM EDT documented as of this encounter Care Teams Outsole Paraffiner Relationship Specialty Start Date End Date Caren Murphy ANP [address] [place] [phone] PCP - General Family Medicine 04/14/22 documented as of this encounter
--- OUTSIDE RECORDS SUMMARY | 2025-05-20 09:51 | XMS_ITS | Encounter Summary ---
Author Organization [employer] Address [address] 7[address] [place] [address] Care Team Providers Care Associate Dean Of Women Name Role Phone Caren Murphy Primary Care Provider [phone] Encounter Details Date Type Department Care Team ([facility] st Contact Info) Description 12/24/2023 Orders Only [facility] [address] [place] [address] Rhoda Muhammad RN Uncomplicated opioid dependence (CMS/HCC) [...] t he electric, gas, oil or water [employer] threatened to shut off services in your [...] Description 06/02/2025 3:15 PM EDT Office Visit [facility] [address] [place] [address] [phone] Caren Murphy ANP [address] [place] [address] 07/06/2025 9:15 AM EST Office Visit [facility] [address] [place] [phone] Jerod Pruett MD [address] [place] [address] Scheduled Orders Name Type Priority Associated Diagnoses [...] Load <15 NOT DETECTED NOT DETECTED IU/mL [facility] HCV Log PCR <1.18 NOT DETECTED NOT DETECTED Log IU/mL [facility] Comment:This test was perfor med using Real-Time Polymerase ChainReaction.Reportable Range: 15 IU/mL to 100,000,000 IU/mL(1.18 Log IU/mL to 8.00 Log IU/mL).The analytical performance characteristics of thisassay have been determined by [employer].The modifications have not been cleared or approved bythe FDA. This assay has been validated pursuant to theCLIA regulations and is used for clinical purposes.For more information on this test, go to:http://education.Drug[employer].com/faq/KJC06n8(This link is being provided for informational/educational purposes only.)THIS TEST WAS PERFORMED AT:[employer] [place] [phone] MARTINES MD 12/24/2023 11:2 6 AM EDT 12/25/2023 8:31 AM EDT us Jerod Pruett MD LAB BLOOD ORDERABLES Final Res ult [facility] [address] [place], [place] [phone] * HIV-1/2 Antigen and Antibodies, Fourth Generation, with Reflexes (12/24/2023 11:26 AM EDT) HIV AB/AG Nonreactive Nonreactive [facility] Comment:HIV-1 p24 Ag and/or HIV-1/HIV-2 Ab not detected.A test result that is nonreactive does not exclude thepossibility of exposure to or infection with HIV-1 and/orHIV-2. Nonreactive results in this assay for individualswith prior exposure to HIV-1 and/or HIV-2 may be due toantigen and antibody levels that are below the limit ofdetection of this assay.The [employer] HIV Ag/Ab Combo assay result andsupplemental assay results should be interpreted inconjunction with the patient's clinical presentation,history and other laboratory results. If the results areinconsistent with clinical evidence, additional testing issuggested to confirm the result. 12/24/2023 11:2 6 AM EDT 12/24/2023 1:16 PM EDT Jerod Pruett MD LAB BLOOD ORDERABLES Final Res ult Performing Organization Address [facility] de Phone Number [facility] [address] [place] [phone] * (ABNORMAL) Hepatitis C Antibody with Reflex to HCV, RNA, Quantitative, Real- Time PCR (12/24/2023 11:26 AM EDT) Hepatitis C Antibody Reactive( A) Nonreactive [facility] Comment:Presumptive evidence of antibodies to HCV. 12/24/2023 11:2 6 AM EDT 12/24/2023 1:16 PM EDT Jerod Pruett MD LAB BLOOD ORDERABLES Final Res ult Performing Organization Address [facility] de Phone Number [facility] [address] [place] [phone] documented in this encounter Visit Diagnoses Diagnosis Uncomplicated opioid dependence (CMS/HCC) (HCC) documented in this encounter Additional Health Concerns Assessment Noted Time PHQ-9 Depression Total Score: 16 03/15/2 024 1:07 PM EDT documented as of this encounter Care Teams Associate Dean Of Women Relationship Specialty Start Date End Date Caren Murphy ANP [address] [place] [address] PCP - General Family Medicine 04/14/22 documented as of this encounter
--- OUTSIDE RECORDS SUMMARY | 2025-05-20 09:51 | XMS_ITS | Encounter Summary ---
Author Organization [employer] Address [address] [place] [address] Care Team Providers Care Tree Surgeon Name Role Phone Caren Murphy Primary Care Provider [phone] Reason for Visit * Reason Comments Med Refill Encounter Details Date Type Department Care Team ([facility] st Contact Info) Description 04/07/2024 Refill [facility] [address] [place] [address] Valencia Barnes MD [address] [place] [address] Uncomplicated opioid dependence (CMS/HCC) Social History Tobacco [...] Description 06/02/2025 3:15 PM EDT Office Visit [facility] [address] [place] [phone] Caren Murphy ANP [address] [place] [phone] 07/06/2025 9:15 AM EST Office Visit [address] [address] Jerod Pruett MD [address] [place] [phone] documented as of this encounter Visit Diagnoses Diagnosis Uncomplicated opioid dependence (CMS/HCC) (HCC) documented in this encounter Additional Health Concerns Assessment Noted Time PHQ-9 Depression Total Score: 16 024 1:07 PM EDT documented as of this encounter Care Teams Tree Surgeon Relationship Specialty Start Date End Date Caren Murphy ANP [address] [place] [phone] PCP - General Family Medicine 04/14/22 documented as of this encounter
--- OUTSIDE RECORDS SUMMARY | 2025-05-20 09:51 | XMS_ITS | Encounter Summary ---
Author Organization [employer] Address [address] [facility] 7t [place] [address] Care Team Providers Care Polish Compounder Name Role Phone Caren Murphy Primary Care Provider Encounter Details Date Type Department Care Team ([facility] Contact Info) Description 07/09/2024 Orders Only [facility] [address] [place] [address] Provider, MD Vineet Social History Tobacco Use [...] Description 06/02/2025 3:15 PM EDT Office Visit [address] [address] Caren Murphy ANP [address] [place] [phone] 07/06/2025 9:15 AM EST Office Visit [address] [address] Jerod Pruett MD [address] [place] [phone] documented as of this encounter Procedures Procedure [...] documented as of this encounter Care Teams Polish Compounder Relationship Specialty Start Date End Date Caren Murphy ANP [address] [place] [phone] PCP - General Family Medicine 04/14/22 documented as of this encounter
== END ==
LOC: HO.CARD 09:03
PROVIDERS: Visit Provider Nurse Practitioner Family
DX: R00.2 Palpitations (principal); R07.89 Other chest pain; I44.7 Left bundle-branch block, unspecified
CPT/HCPCS: 93242; 93306

== ENCOUNTER → 2025-05-20 09:07 | Outpatient (BNV) | payer MEDICARE, MEDICAID, SELFPAY | PROVIDERS: Visit Provider Internal Medicine | DX: I77.810 Thoracic aortic ectasia (principal); I44.7 Left bundle-branch block, unspecified | CPT/HCPCS: 93306 ==

== ENCOUNTER 2025-05-27 13:36 | Outpatient (REF) | payer MEDICARE, MEDICAID, SELFPAY | END 2025-05-27 13:37 | disposition home or self-care (01) | LOC: HO.MAMMO 13:36 | PROVIDERS: PCP Nurse Practitioner Primary Care; Visit Provider Nurse Practitioner Primary Care | DX: Z12.31 Encounter for screening mammogram for malignant neoplasm of breast (principal) | CPT/HCPCS: 77063; 77067 ==

== ENCOUNTER → 2025-05-27 14:15 | Outpatient (BNV) | payer MEDICARE, MEDICAID, SELFPAY | PROVIDERS: PCP Nurse Practitioner Primary Care; Visit Provider Radiology Body Imaging | DX: Z12.31 Encounter for screening mammogram for malignant neoplasm of breast (principal) | CPT/HCPCS: 77063; 77067 ==

== ENCOUNTER 2025-06-01 09:06 | Outpatient (REF) | payer MEDICARE, MEDICAID, SELFPAY ==
--- NOTE | 2025-06-01 09:10 | EMG_ITS ---
Chief complaint: Tremors of bilateral hands Reason for referral: R25.1 Tremor of bilateral hands, Evaluate for neuropathy, polyneuropathy, radiculopathy Referred by: Caren Murphy NP Procedure done: Bilateral upper extremity NCS/ EMG Bilateral median and ulnar motor studies were performed. Bilateral median and ulnar mixed sensory studies, radial sensory studies, and median and lateral antecubital brachial sensory studies were performed. EMG needle examination was performed. Bilateral median mixed distal latencies were slightly prolonged. Otherwise no significant abnormality noted. 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
--- OUTSIDE RECORDS SUMMARY | 2025-06-01 09:47 | XMS_ITS | Clinical Summary ---
Author Organization [facility] [address] [facility] Address [address] [place] [address] Phone Care Team Providers Care Linen Keeper Name Role Phone Caren Murphy NP Primary Care Provider Allergies No known active allergies Medications albuterol [...] receive adjuvant chemotherapy with her oncologist at [facility]. The patient's most recent surveillance chest [...] She was referred to medical onocology at [facility] and completed 8 cycles of adjuvant chemotherapy and denies any immunotherapy. Her most recent chest CT scan which was performed on 07/06/2024 at and shows no new or worsening pulmonary [...] Diagnosed Date Resolved Date Adrenal mass ([facility] V24) 07/21/2024 0 02/12/2025 Assessment & Plan [...] concerning like a malignancy. Lung cancer ([facility] V24, [facility] V28) 05/13/2023 02/12/2025 Overview (06/02/2024): Last Assessment & Plan: Ms. Doss is a 63-year-old female previously in the [facility] lung cancer screening program who on May 07, 2023 had a da Missy robotic right upper lobectomy and mediastinal lymphadenectomy for stage [id number] or stage Ib adenocarcinoma. Patient will be referred to medical oncology at [facility] for discussion of possible adjuvant chemotherapy [...] results which should both take place at . While patient was in office today her [...] PROCEDURE: HISTORICAL COLONOSCOPY BREAST BIOPSY Right PROCEDURE: [place] BIOPSY BREAST OPEN INCISIONAL TUBAL LIGATION PROCEDURE: HISTORICAL TUBAL LIGATION OTHER SURGICAL HISTORY 05/07/2023 Right PROCEDURE: [place] THORACOSCOPY W/LOBECTOMY SINGLE LOBE; COMMENT: RUL wedge THYROID BIOPSY 07/10/2024 at [facility] Medical History Medical History Date Comments Hepatitis [...] is a 63-year-old female previously in the [facility] lung cancer screening program who on May 07, 2023 had a da Missy robotic right upper lobectomy and mediastinal lymphadenectomy for stage [id number] or stage Ib adenocarcinoma. Patient will be referred to medical oncology at [facility] for discussion of possible adjuvant chemotherap [...] Care Team (Late st Contact Info) Description 06/04/2025 9:[address] Scan [address] [place] [phone] 06/16/2025 10:30 AM EDT Office Visit [facility] - [place] [address] [phone] Sourav Benitez, [place] [address] [address] Health Maintenance Due Date Last Done Comments Colorectal Cancer Screening: Colonoscopy 1960 RSV Immunization Adult Patients (1 - Risk 50-74 years 1-dose series) 2009 Pneumococcal Vaccine: 50+ Years (2 of 2 - PCV) 09/30/2010 09/30/2009, 09/30/2009 Hepatitis B Vaccines (1 of 3 - Risk 3-dose series) 2019 Hepatitis C Screening 09/17/2023 Medicare [...] Insurance MEDICARE MEDICAID - [place] Care Teams Linen Keeper Relationship Specialty Start Date End Date Caren Murphy NP [address] [place] [phone] PCP - General 02/15/25
== END 2025-06-01 09:07 | disposition home or self-care (01) ==
LOC: HO.NEURO 09:06
PROVIDERS: PCP Nurse Practitioner Primary Care; Visit Provider Nurse Practitioner Primary Care
DX: R25.1 Tremor, unspecified (principal)
CPT/HCPCS: 95886; 95913

== ENCOUNTER → 2025-06-01 09:10 | Outpatient (BNV) | payer MEDICARE, MEDICAID, SELFPAY | PROVIDERS: PCP Nurse Practitioner Primary Care; Visit Provider Psychiatry & Neurology Neurology | DX: G56.03 Carpal tunnel syndrome, bilateral upper limbs (principal) | CPT/HCPCS: 95886; 95912 ==

== ENCOUNTER 2025-07-06 11:59 | Outpatient (REF) | payer MEDICARE, SELFPAY ==
[2025-07-06 13:20] LABS: MANUAL DIFF FLAG NO
[2025-07-06 13:40] LABS: Hematocrit 45.9 % (37.0-47.0); Hemoglobin 14.5 g/dl (12.0-16.0); Imm Gran Abs Auto 0.02 X10*3/uL (0.00-0.03); Imm Gran Pct Auto 0.3 % (0.0-0.4); Lymphocytes Absolute Auto 3.2 X10*3/uL (1.2-4.9); Mean Corpuscular HGB Conc 31.6 g/dl (31.0-35.0); Mean Corpuscular Hemoglobin 30.0 pg (27.0-33.0); Mean Corpuscular Volume 94.8 fL (80.0-98.0); NRBC Abs Auto 0.000 X10*3/uL (0.0-0.012); NRBC Pct Auto 0.0 /100WBC (0.0-0.2); Platelet Count 191 X10*3/uL (160-400); Red Blood Count 4.84 X10*6/uL (4.20-5.50); White Blood Count 7.9 X10*3/uL (4.8-10.8)
[2025-07-06 14:06] LABS: Alanine Aminotransferase 12 U/L (0-31); Albumin Level 4.2 g/dL (3.5-5.0); Alkaline Phosphatase 70 U/L (39-117); Anion Gap 13 (12-20); Aspartate Amino Transferase 21 U/L (5-31); Blood Urea Nitrogen 10 mg/dL (9-16); Calcium 9.8 mg/dL (8.4-10.2); Carbon Dioxide 29 mmol/L (22-29); Chloride 107 mmol/L (96-108); Estimated Glomerular Filt Rate > 60; Potassium 4.5 mmol/L (3.3-5.1); Sodium 144 mmol/L (135-145); Total Protein 7.0 g/dL (6.5-8.0)
--- OUTSIDE RECORDS SUMMARY | 2025-07-07 02:53 | XMS_ITS | Clinical Summary ---
Author Organization [facility] [address] [facility] Address [address] [place] [address] Phone Care Team Providers Care Lease Attendant Name Role Phone Caren Murphy NP Primary Care Provider [phone] Allergies No known active allergies Medications albuterol [...] of lung cancer 07/21/2024 Assessment & Plan (06/16/2025 11:15 AM EDT): This patient had a right upper lobectomy in April 2023 for stage Ib (pT2a, pN0) pulmonary adenocarcinoma. She was seen by medical oncology at [facility] and completed 8 cycles of adjuvant chemotherapy. Her most recent chest CT scan performed in May 2025 which showed interval resolution of right lower lobe nodularity compatible with a resolved inflammatory process. There is no new or worsening pulmonary nodules or mediastinal lymphadenopathy to suggest recurrence of disease in the chest. She was educated that her next chest CT scan will be due in 12 months time as she is now past her 2-year anniversary of 6-month surveillance. Her next chest CT will be due in May 2026 and have a visit at the thoracic surgery department thereafter to discuss results. Assessment & Plan (02/12/2025 10:15 AM EDT): Ms. Doss is a 64-year-old female who had a right upper lobectomy in April 2023 for stage Ib pulmonary adenocarcinoma. She did receive adjuvant chemotherapy with her oncologist at [facility]. The patient's most recent surveillance chest [...] referred to medical onocology at [facility] and completed 8 cycles of adjuvant chemotherapy and denies any immunotherapy. Her most recent chest CT scan which was performed on 07/06/2024 at [facility] and shows no new or worsening [...] Date Diagnosed Date Resolved Date Adrenal mass (CMS/HCC V24) 07/21/2024 0 02/12/2025 Assessment & Plan [...] something concerning like a malignancy. Lung cancer (CMS/HCC V24, CMS/HCC V28) 05/13/2023 02/12/2025 Overview (06/02/2024): Last Assessment & Plan: Ms. Doss is a 63-year-old female previously in the [facility] lung cancer screening program who on May 07, 2023 had a da Missy robotic right upper lobectomy and mediastinal lymphadenectomy for stage [id number] or stage Ib adenocarcinoma. Patient will be referred to medical oncology at [facility] for discussion of possible adjuvant chemotherapy [...] results which should both take place at [facility]. While patient was in office today [...] Encounters Date Type Department Care Team Description 06/16/2025 10:30 AM EDT Office Visit Thoracic Surgery - [place] 299 [facility] [address] [place] [phone] Sourav Benitez PA History of lung cancer (Primary Dx) 06/04/2025 9:09 AM EDT - 06/04/2025 11:59 PM EDT Hospital Encounter [facility] CT Scan [address] [place] [phone] Pulmonary nodules; History of lung cancer Discharge Disposition: Home or Self Care from Last 3 Months Surgical History Surgery Date Site/Laterality Comments CARDIAC CATHETERIZATION N/A PROCEDURE: HISTORICAL CARDIAC CATH SECTION N/A PROCEDURE: HISTORICAL DELIVERY COLONOSCOPY N/A PROCEDURE: HISTORICAL COLONOSCOPY BREAST BIOPSY Right PROCEDURE: OR BIOPSY BREAST OPEN INCISIONAL TUBAL LIGATION PROCEDURE: HISTORICAL TUBAL LIGATION OTHER SURGICAL HISTORY 05/07/2023 Right PROCEDURE: [place] THORACOSCOPY W/LOBECTOMY SINGLE LOBE; COMMENT: RUL wedge THYROID BIOPSY 07/10/2024 at [facility] Medical History Medical History Date Comments Hepatitis C DX:Hepatitis C Morbid obesity (CMS/HCC V24, CMS/HCC V28) DX:Morbid obesity (HCC) Nicotine dependence DX:Nicotine dependence Substance abuse (CMS/HCC V24 , CMS/HCC V28) DX:Substance abuse (HCC) Sleep apnea, obstructive DX:Slee p apnea, obstructive Asymptomatic varicose veins of lower extremity DX:Asymptomatic varicose vei ns of lower extremity Lung cancer ([facility] V24, [facility] /[facility] V28) 05/13/2023 Last Assessment & Plan: Ms. Doss is a 63-year-old female previously in the [facility] lung cancer screening program who on May 07, 2023 had a da Missy robotic right upper lobectomy and mediastinal lymphadenectomy for stage [id number] or stage Ib adenocarcinoma. Patient will be referred to medical oncology at [facility] for discussion of possible adjuvant chemotherap Family History Medical History Relation Name Comments Other cancer Brother lung Other cancer Mother lung Relation Name Status Comments Brother Mother Social History Tobacco Use Types Packs/Day Years Used Date Smoking Tobacco: Former Cigarettes 51.6 0 08/19/1971 - 04/05/2023 Smokeless Tobacco: Never [...] Sign Reading Time Taken Comments Blood Pressure 154/95 06/16/2025 10:47 AM EDT Pulse 94 06/16/2025 10:47 AM EDT Temperature 36.9 C (98.4 F) 06/16/2025 10:47 AM EDT Respiratory Rate 18 06/16/2025 10:4 7 AM EDT Oxygen Saturation 95% 06/16/2025 10: 47 AM EDT Inhaled Oxygen Concentration - - Weight 92.4 kg (203 lb 12.8 oz) 025 10:47 AM EDT Height 154.9 cm (5' 1 ) 06/16/2025 10:4 7 AM EDT Body Mass Index 38.51 06/16/2025 10:47 AM EDT Plan of Treatment Health Maintenance Due Date Last Done Comments Colorectal Cancer Screening: Colonoscopy 1960 RSV Immunization Adult Patients (1 - Risk 50-74 years 1-dose series) 2009 Hepatitis B Vaccines (1 of 3 - Risk 3-dose series) 2019 Hepatitis C Screening 09/17/2023 Medicare Annual Wellness Visit 09/17/2023 Osteoporosis Screening (Bone Density Screening) 09/17/2023 Social Influencers of Health Screening 09/17/2023 Falls Risk Assessment 2024 Depression Screening 08/19/2024 Breast Cancer Screening 08/28/2024 08/28/2022 COVID-19 Vaccine (9 - Moderna risk 2024- season) 2025 06/02/2025, 05/21/2024, 06/07/2023, Additional history exists Hypertension/CHF/CAD Annual BMP Blood Test 03/30/2026 03/30/2025 Cholesterol Screening (Lipid Panel) 10/02/2027 10/02/2022 DTaP,Tdap,and Td Vaccines (3 - Td or Tdap) 09/09/2030 09/09/2020, 05/18/2005 Hepatitis A Vaccines Completed 09/08/2019, 02/18/20 19 Zoster Vaccines Completed 12/16/2020, 09/09/2020 Pneumococcal Vaccine: 50+ Years Completed 04/05/2025, 09/30/2009, 09/30/2009 Influenza Vaccine Completed 06/02/2025, , 06/07/2023, Additional history exists HIB Vaccines Aged Out [...] Diagnosis Comments CT CHEST WO CONTRAST Routine 06/04/2025 9:21 AM EDT Pulmonary nodules History of lung cancer from Last 3 Months Results * CT Chest wo Contrast (06/04/2025 9:21 AM EDT) Anatomical Region Laterality Modality Body Computed Tomogra phy 06/14/2025 9:58 AM EDT Impressions 06/14/2025 10:01 AM EDT Right upper lobectomy. No recurrent or metastatic disease in the chest. Interval resolution of right lower lobe nodularity compatible with a resolved inflammatory process. -------- FINAL REPORT -------- Dictated By: DARSHANA GAGNON Dictated Date: 06/14/2025 09:58 ET Assigned Physician: DARSHANA GAGNON Reviewed and Electronically Signed By: DARSHANA GAGNON Signed Date: 06/14/2025 10:01 ET Workstation ID: [id number] Transcribed By: Self Edit Transcribed Date: 06/14/2025 09:58 ET Narrative 06/14/2025 10:01 AM EDT PROCEDURE: Chest CT INDICATION: Lung cancer, right lower lobe nodule TECHNIQUE: Chest CT without contrast. Multi planar reformats were created and interpreted. The examination was performed utilizing dose reduction techniques. Total DLP 762 COMPARISON: 02/05/2025 FINDINGS: LUNGS/PLEURA: Central airways are patent. Right upper lobectomy. Right lower lobe nodularity has resolved compatible with an inflammatory process. No new or suspicious pulmonary nodules. No pleural effusion or pneumothorax MEDIASTINUM: Thyroid gland is unchanged. No mediastinal or hilar lymphadenopathy. Esophagus is normal. Cardiac chambers are normal in size. Moderate coronary artery calcifications. Ascending thoracic aorta measures 3.9 cm at the level of the right pulmonary artery. CHEST WALL: No axillary lymphadenopathy or superficial hematoma. UPPER ABDOMEN:Unchanged left adrenal adenoma. BONES: No suspicious lytic or blastic lesions.. Scattered degenerative changes seen throughout the bones. Procedure Note Darshana Gagnon MD - 06/14/2025 PROCEDURE: Chest CT INDICATION: Lung cancer, right lower lobe nodule TECHNIQUE: Chest CT without contrast. Multi planar reformats were createdand interpreted. The examination was performed utilizing dose reductiontechniques. Total DLP 762 COMPARISON: 02/05/2025 FINDINGS: LUNGS/PLEURA: Central airways are patent. Right upper lobectomy. Rightlower lobe nodularity has resolved compatible with an inflammatoryprocess. No new or suspicious pulmonary nodules. No pleural effusion orpneumothorax MEDIASTINUM: Thyroid gland is unchanged. No mediastinal or hilarlymphadenopathy. Esophagus is normal. Cardiac chambers are normal insize. Moderate coronary artery calcifications. Ascending thoracic aortameasures 3.9 cm at the level of the right pulmonary artery. CHEST WALL: No axillary lymphadenopathy or superficial hematoma. UPPER ABDOMEN:Unchanged left adrenal adenoma. BONES: No suspicious lytic or blastic lesions.. Scattered degenerativechanges seen throughout the bones. IMPRESSION: Right upper lobectomy. No recurrent or metastatic disease in the chest. Interval resolution of right lower lobe nodularity compatible with aresolved inflammatory process. -------- FINAL REPORT -------- Dictated By: DARSHANA GAGNON Dictated Date: 06/14/2025 09:58 ET Assigned Physician: DARSHANA GAGNON Reviewed and Electronically Signed By: DARSHANA GAGNON Signed Date: 06/14/2025 10:01 ET Workstation ID: [id number] Transcribed By: Self Edit Transcribed Date: 06/14/2025 09:58 ET Alvina MIRAMONTES IM CT PROCEDURES Final Resul t from Last 3 Months Insurance MEDICARE MEDICAID - [place] Care Teams Lease Attendant Relationship Specialty Start Date End Date Caren Murphy NP [address] [place] [phone] PCP - General 02/15/25
== END 2025-07-06 12:00 | disposition home or self-care (01) ==
LOC: HO.HHCL 11:59
PROVIDERS: PCP Nurse Practitioner Primary Care; Visit Provider Psychiatry & Neurology Psychiatry
DX: Z79.899 Other long term (current) drug therapy (principal)
CPT/HCPCS: 36415; 80053; 80164; 83036; 85025